=== PATIENT | male | born 1960 | race Caucasian/White ===

== ENCOUNTER 2016-03-24 15:59 | Emergency (ER) | payer OTHER, MEDICARE ==
[2016-03-24] MEDS ORDERED: Zofran 4 MG/2 ML VIAL IV ONE (16:49)
[2016-03-24] MEDS ORDERED: Sodium Chloride 0.9% 1000 ML 1,000 ML IV STA (16:49)
[2016-03-24] MEDS ORDERED: Zofran 4 MG/2 ML VIAL ONE (17:08)
[2016-03-24] MEDS ORDERED: Sodium Chloride 0.9% 1000 ML 1,000 ML ONE (17:08)
[2016-03-24 17:18] LABS: Mean Cell Volume 62.8 fl (78-100); Mean Platelet Volume 9.9 fl (6-9.5); Platelet Count 247 K/mm3 (150-450); Red Blood Count 4.79 M/mm3 (4.1-5.6); Red Cell Distribution Width 20.1 % (11.5-14.0); White Blood Count 7.1 K/mm3 (4.0-10.5)
[2016-03-24 17:35] LABS: Mean Corpuscular Hemoglobin 18.1 pg (26-32)
[2016-03-24] MEDS ORDERED: DILAUDID 2 MG INJECTION IV STA (17:42)
--- NOTE | 2016-03-24 17:42 | ERPHSYRPT ---
- History of Present Illness Time Seen by Provider: 03/24/16 16:10 Historian: patient Exam Limitations: clinical condition Patient Subjective Stated Complaint: ABD PAIN "IT FEELS LIKE SOMETHING BURST INSIDE. PAIN IS WORSE UNDER RIBS ON RIGHT SIDE." Triage Nursing Assessment: ALERT X3, NO SOB NOTED/RESP EVEN AND UNLABORED, SKIN PINK WARM DRY, ABD TENDER TO TOUCH THROUGHOUT. BOWEL SOUNDS IN ALL FOUR QUADS HYPERACTIVE. Physician History: PATIENT WITH A HISTORY OF GASTRIC REDUCTION SURGERY COMPLAINS OF GENERALIZED ABDOMINAL PAINS OVER THE PAST 6 HOURS, ASSOCIATED WITH DIARRHEA X 2. DENIES EMESIS, COUGH, FEVER, DIFFICULTY BREATHING OR URINARY SYMPTOMS. STATES HE HAS NOT HAD HIS PROTONIX TODAY. Timing/Duration: today Activities at Onset: none Quality: sharpness Abdominal Pain Onset Location: generalized abdomen Pain Radiation: no radiation Severity of Pain-Max: severe Severity of Pain-Current: severe Modifying Factors: Improves With: movement Associated Symptoms: diarrhea, nausea Previous symptoms: no prior history Allergies/Adverse Reactions: No Known Drug Allergies Allergy (Unverified 03/24/16 17:25) Home Medications: Levothyroxine Sodium 50 Mcg [Synthroid 50 Mcg] 200 mcg PO DAILY 07/28/11 [ History] Iron 325 mg PO DAILY 03/21/12 [History] Lisinopril 20 mg PO DAILY 03/27/12 [History] Viibryd 1 tab PO DAILY 03/27/12 [History] Hx Tetanus, Diphtheria Vaccination/Date Given: Yes Hx Influenza Vaccination/Date Given: Yes Hx Pneumococcal Vaccination/Date Given: No Immunizations Up to Date: Yes - Review of Systems Constitutional: No Fever, No Chills Eyes: No Symptoms Ears, Nose, & Throat: No Symptoms Respiratory: No Symptoms, No Cough, No Dyspnea Cardiac: No Chest Pain, No Edema, No Syncope Abdominal/Gastrointestinal: Abdominal Pain, Nausea, Diarrhea, No Vomiting Genitourinary Symptoms: No Symptoms, No Dysuria Musculoskeletal: No Symptoms, No Back Pain, No Neck Pain Skin: No Symptoms, No Rash Neurological: No Dizziness, No Focal Weakness, No Sensory Changes Psychological: No Symptoms Endocrine: No Symptoms All Other Systems: Reviewed and Negative - Past Medical History Pertinent Past Medical History: Yes Neurological History: No Pertinent History Cardiac History: Coronary Artery Disease Endocrine Medical History: Hypothyroidism Musculoskeletal History: Degenerative Disk Disease GI Medical History: GERD Other Medical History: CHRONIC BACK PAIN - Past Surgical History Past Surgical History: Yes Neuro Surgical History: No Pertinent History Cardiac: CABG Respiratory: No Pertinent History Gastrointestinal: Cholecystectomy Genitourinary: No Pertinent History Musculoskeletal: Orthopedic Surgery Male Surgical History: No Pertinent History Other Surgical History: SPINAL SURGERY 2016 - Social History Smoking Status: Never smoker Exposure to second hand smoke: No Alcohol Use: None Drug Use: none Patient Lives Alone: No Significant Family History: heart disease, other - Nursing Vital Signs Nursing Vital Signs: Initial Vital Signs Temperature 97.8 F Temperature Source Oral Pulse Rate 93 Respiratory Rate 18 Blood Pressure [] 159/101 Pain Intensity 8 - Physical Exam General Appearance: mild distress Eye Exam: PERRL/EOMI, eyes nml inspection Ears, Nose, Throat Exam: normal ENT inspection, pharynx normal, moist mucous membranes Neck Exam: normal inspection, non-tender, supple, full range of motion Respiratory Exam: normal breath sounds, lungs clear, No respiratory distress Cardiovascular Exam: regular rate/rhythm, normal heart sounds Gastrointestinal/Abdomen Exam: soft, normal bowel sounds, tenderness (DIFFUSE TENDERNESS, ), No mass Back Exam: normal inspection, normal range of motion, No CVA tenderness, No vertebral tenderness Extremity Exam: normal inspection, normal range of motion, pelvis stable Neurologic Exam: alert, oriented x 3, cooperative, normal mood/affect, nml cerebellar function, sensation nml, No motor deficits Skin Exam: normal color, warm, dry SpO2 Interpretation: normal SpO2: 100 Oxygen Delivery: Room Air - CT Exams Abdomen/Pelvis CT Interpretation: Tele-radiologist Report (PREVIOUS CHOLECYSTECTOMY, NO FREE AIR, MUCOSAL WALL THICKENING, NO FINDINDG TO SUGGEST APPENDICITIS) Ordered Tests: Active Orders 24 hr Category Date Time Status IV Insertion STAT Care 03/24/16 16:49 Active Oxygen-ED Only NASAL CANNULA 2 lpm Care 03/24/16 17:43 Active ABDOMEN AND PELVIS W CONTRAST [CT] Stat Exams 03/24/16 16:50 Taken AMYLASE Stat Lab 03/24/16 17:05 Completed BLOOD CULTURE Stat Lab 03/24/16 17:05 Received CBC W DIFF Stat Lab 03/24/16 17:05 Completed CMP Stat Lab 03/24/16 17:05 Completed LIPASE Stat Lab 03/24/16 18:25 Completed Manual Differential NC Stat Lab 03/24/16 17:05 Completed UA W/ MICROSCOPIC Stat Lab 03/24/16 18:00 Completed Urine Triage Profile Stat Lab 03/24/16 17:30 Completed Medication Summary Discontinued Medications Generic Name Dose Route Start Last Admin Trade Name Kassie PRN Reason Stop Dose Admin Hydromorphone HCl 2 mg 03/24/16 17:42 03/24/16 17:48 Dilaudid 2 Mg Injection IV 03/24/16 17:43 2 mg STAT STA Administration Hydromorphone HCl Confirm 03/24/16 17:45 Hydromorphone 1 Mg/Ml Ampule Administered 03/24/16 17:46 Dose 2 mg .ROUTE .STK-MED ONE Sodium Chloride 1,000 mls @ 999 mls/hr 03/24/16 16:49 03/24/16 17:11 Sodium Chloride 0.9% 1000 Ml IV 03/24/16 17:49 999 mls/hr .Q1H1M STA Administration Sodium Chloride Confirm 03/24/16 17:08 Sodium Chloride 0.9% 1000 Ml Administered 03/24/16 17:09 Dose 1,000 mls @ ud .ROUTE .STK-MED ONE Ondansetron HCl 4 mg 03/24/16 16:49 03/24/16 17:11 Zofran 4 Mg/2 Ml Vial IV 03/24/16 16:50 4 mg STAT ONE Administration Ondansetron HCl Confirm 03/24/16 17:08 Zofran 4 Mg/2 Ml Vial Administered 03/24/16 17:09 Dose 4 mg .ROUTE .STK-MED ONE Pantoprazole Sodium 40 mg 03/24/16 19:05 03/24/16 19:10 Protonix 40 Mg Iv IV 03/24/16 19:06 40 mg STAT ONE Administration Pantoprazole Sodium Confirm 03/24/16 19:07 Protonix 40 Mg Iv Administered 03/24/16 19:08 Dose 40 mg IV .STK-MED ONE Pantoprazole Sodium 40 mg 03/24/16 19:32 Protonix 40mg Tablet PO 03/24/16 19:33 STAT ONE Lab/Rad Data: Laboratory Result Diagrams 03/24/16 17:05 03/24/16 17:05 Laboratory Results 03/24/16 03/24/16 03/24/16 Range/Units 18:25 18:00 17:30 WBC (4.0-10.5) K/mm3 RBC (4.1-5.6) M/mm3 Hgb (12.5-18.0) gm/dl Hct (42-50) % MCV (78-100) fl MCH (26-32) pg MCHC (32-36) g/dl RDW (11.5-14.0) % Plt Count (150-450) K/mm3 MPV (6-9.5) fl Segmented Neutrophils (36.-66.) % Lymphocytes (Manual) (24-44) % Monocytes (Manual) (0.0-12.0) % Differential Comment Platelet Estimate (NORMAL) Hypochromasia Poikilocytosis Anisocytosis Sodium (136-145) mEq/L Potassium (3.5-5.1) mEq/L Chloride (98-107) mEq/L Carbon Dioxide (21-32) mEq/L Anion Gap (5-15) MEQ/L BUN (9-20) mg/dL Creatinine (0.55-1.30) mg/dl Estimated GFR ML/MIN Glucose (70-110) MG/DL Calcium (8.5-10.1) mg/dL Total Bilirubin (0.2-1.0) mg/dL AST (15-37) U/L ALT (12-78) U/L Alkaline Phosphatase (46-116) U/L Serum Total Protein (6.4-8.2) gm/dL Albumin (3.4-5.0) g/dL Amylase (25-115) U/L Lipase 198 (73-393) U/L Ur Collection Type CCMS Urine Color YELLOW (YELLOW) Urine Appearance CLEAR (CLEAR) Urine pH 6.5 (5-6) Ur Specific [place] 1.025 (1.005-1.025) Urine Protein 30 (Negative) Urine Glucose (UA) NEGATIVE (NEGATIVE) mg/dL Urine Ketones SMALL-15 (NEGATIVE) Urine Nitrite NEGATIVE (NEGATIVE) Urine Bilirubin NEGATIVE (NEGATIVE) Urine Urobilinogen 0.2 (0-1) mg/dL Urine WBC (Auto) NEGATIVE (NEGATIVE) Urine RBC (Auto) NEGATIVE (0-5) Jose/ul Urine Microscopic RBC 0-2 (0-2) /HPF Urine Microscopic WBC 0-2 (0-5) /HPF Urine Mucus SLIGHT (NEGATIVE) /HPF Urine Opiates Level NEG. (NEGATIVE) Ur Methadone NEG. (NEGATIVE) Urine Barbiturates NEG. (NEGATIVE) Ur Phencyclidine (PCP) NEG. (NEGATIVE) Urine Amphetamine NEG. (NEGATIVE) U Benzodiazepine Level POS. (NEGATIVE) Urine Cocaine NEG. (NEGATIVE) Urine Marijuana (THC) NEG. (NEGATIVE) Specimen Received 03-24-16 1800 03/24/16 03/24/16 Range/Units 17:05 17:05 WBC 7.1 (4.0-10.5) K/mm3 RBC 4.79 (4.1-5.6) M/mm3 Hgb 8.7 L (12.5-18.0) gm/dl Hct 30.1 L (42-50) % MCV 62.8 L (78-100) fl MCH 18.1 L (26-32) pg MCHC 28.9 L (32-36) g/dl RDW 20.1 H (11.5-14.0) % Plt Count 247 (150-450) K/mm3 MPV 9.9 H (6-9.5) fl Segmented Neutrophils 67 H (36.-66.) % Lymphocytes (Manual) 25 (24-44) % Monocytes (Manual) 8 (0.0-12.0) % Differential Comment ABNORMAL Platelet Estimate NORMAL (NORMAL) Hypochromasia 2+ Poikilocytosis 1+ Anisocytosis 1+ Sodium 140 (136-145) mEq/L Potassium 3.5 (3.5-5.1) mEq/L Chloride 104 (98-107) mEq/L Carbon Dioxide 18.2 L (21-32) mEq/L Anion Gap 21.1 H (5-15) MEQ/L BUN 17 (9-20) mg/dL Creatinine 1.09 (0.55-1.30) mg/dl Estimated GFR > 60 ML/MIN Glucose 107 (70-110) MG/DL Calcium 9.3 (8.5-10.1) mg/dL Total Bilirubin 0.6 (0.2-1.0) mg/dL AST 20 (15-37) U/L ALT 17 (12-78) U/L Alkaline Phosphatase 112 (46-116) U/L Serum Total Protein 7.7 (6.4-8.2) gm/dL Albumin 4.4 (3.4-5.0) g/dL Amylase 73 (25-115) U/L Lipase (73-393) U/L Ur Collection Type Urine Color (YELLOW) Urine Appearance (CLEAR) Urine pH (5-6) Ur Specific [place] (1.005-1.025) Urine Protein (Negative) Urine Glucose (UA) (NEGATIVE) mg/dL Urine Ketones (NEGATIVE) Urine Nitrite (NEGATIVE) Urine Bilirubin (NEGATIVE) Urine Urobilinogen (0-1) mg/dL Urine WBC (Auto) (NEGATIVE) Urine RBC (Auto) (0-5) Jose/ul Urine Microscopic RBC (0-2) /HPF Urine Microscopic WBC (0-5) /HPF Urine Mucus (NEGATIVE) /HPF Urine Opiates Level (NEGATIVE) Ur Methadone (NEGATIVE) Urine Barbiturates (NEGATIVE) Ur Phencyclidine (PCP) (NEGATIVE) Urine Amphetamine (NEGATIVE) U Benzodiazepine Level (NEGATIVE) Urine Cocaine (NEGATIVE) Urine Marijuana (THC) (NEGATIVE) Specimen Received - Progress Progress: improved Progress Note: 03/24/16 19:24 PATIENT GIVEN BOLUS NORMAL SALINE, ZOFRAN 4MG, DILAUDID 2MG, PROTONIX 40MG IV Counseled pt/family regarding: lab results, diagnosis, need for follow-up, rad results - Departure Time of Disposition: 17:30 Departure Disposition: Home Clinical Impression: ACUTE GASTRITIS Condition: Stable Critical Care Time: No Referrals: Miguel Angel Banks [Primary Care Provider] - Additional Instructions: BEGIN PROTONIX 40 MG DAILY AFTER PRESCRIPTION FILLED BY SPOUSE. FOLLOWUP WITH YOUR FAMILY PHYSICIAN IN 1 WEEK. ULTRAM 50MG EVERY 4 HOURS FOR PAIN NEEDED.
[2016-03-24] MEDS ORDERED: Hydromorphone 1 mg/ml Ampule ONE (17:45)
[2016-03-24 17:49] LABS: ALBUMIN 4.4 g/dL (3.4-5.0); ALKALINE PHOSPHATASE 112 U/L (46-116); ANION GAP 21.1 MEQ/L (5-15); BILIRUBIN,TOTAL 0.6 mg/dL (0.2-1.0); BLOOD UREA NITROGEN 17 mg/dL (9-20); CHLORIDE 104 mEq/L (98-107); Carbon Dioxide 18.2 mEq/L (21-32); Glucose 107 MG/DL (70-110); Potassium 3.5 mEq/L (3.5-5.1); SGOT/AST 20 U/L (15-37); SGPT/ALT 17 U/L (12-78); SODIUM 140 mEq/L (136-145); Total Protein 7.7 gm/dL (6.4-8.2)
[2016-03-24 18:14] LABS: COMPLETE URINE MICROSCOPIC? YES; Collection Type CCMS; Mucus SLIGHT /HPF (NEGATIVE); Ph 6.5 (5-6); WBC 0-2 /HPF (0-5)
[2016-03-24 18:54] LABS: Total Cells Counted 100
[2016-03-24 18:55] LABS: ANISOCYTOSIS 1+; Hypochromia 2+; Platelet Estimate NORMAL (NORMAL); Poikilocytosis 1+
[2016-03-24] MEDS ORDERED: PROTONIX 40 MG IV IV ONE ×2 (19:05→19:07)
[2016-03-24] MEDS ORDERED: Protonix 40MG Tablet PO ONE (19:32)
[2016-03-24] MEDS ORDERED: Protonix 40MG Tablet ONE (19:35)
[2016-03-24 19:42] VITALS: BP 170/104; PULSE 90; O2SAT 99
[2016-03-24 19:58] LABS: CHLAMYDIA URINE NEGATIVE; GC URINE NEGATIVE
--- NOTE | 2016-03-25 09:06 | XRAY ---
Indication: Abdominal pain. Multiple contiguous axial images obtained through the abdomen and pelvis using 80 cc Isovue 370 contrast only. Comparison: None Lung bases are clear. Heart is not enlarged. Small hiatal hernia. There has been previous gastric bypass surgery. Noncontrasted stomach and bowel loops appear nonobstructed. Appendix not seen. No free fluid/air. Previous cholecystectomy. Enlarged prostate gland impresses on the base of the bladder. Remaining liver, pancreas, spleen, adrenal glands, kidneys, ureters, and bladder appear unremarkable. Mild aortoiliac calcifications. No AAA or pathologic retroperitoneal lymphadenopathy. Osseous structures demonstrate previous L4-S1 fusion surgery and laminectomy. Approximately 6-7 mm L5 anterolisthesis on S1. Small bilateral fatty inguinal hernias. Impression: 1. No acute intra-abdominal/pelvic abnormalities. 2. Incidental small hiatal hernia, small bilateral fatty inguinal hernias, enlarged prostate gland, and previous spinal surgery. Comment: Preliminary interpretation was made by [facility]. No discrepancy. CT DI 23.19
== END 2016-03-24 19:50 | disposition home or self-care (01) ==
LOC: EEVIPCON 15:59 → ED 15:59
DX: K29.00 Acute gastritis without bleeding (principal); R19.7 Diarrhea, unspecified; R11.0 Nausea; R10.9 Unspecified abdominal pain
CPT/HCPCS: 36000; 36415; 74177; 80053; 80307; 81000; 82150; 83690; 85025; 87040; 87491; 87591; 96360; 96374; 96375; 99283; J1170; J2405

== ENCOUNTER 2016-03-29 10:08 | Emergency (ER) | payer MEDICARE ==
[2016-03-29] MEDS ORDERED: DECADRON 10MG INJ. IM ONE (10:29)
[2016-03-29] MEDS ORDERED: DUONEB 0.5-3 MG/3 ml Neb IH ONE ×2 (10:30→10:42)
[2016-03-29] MEDS ORDERED: TYLENOL 325 MG PO ONE (10:30)
--- NOTE | 2016-03-29 10:34 | ERPHSYRPT ---
- History of Present Illness Time Seen by Provider: 03/29/16 10:24 Source: patient Patient Subjective Stated Complaint: PT REPORTS PERSISTANT COUGH-BODY ACHES- UNKNOWN FEVER-STATES HE IS MISERABLE Triage Nursing Assessment: COUGH NOTED-LUNGS TIGHT WITH OCCASIONAL WHEEZE-NO RETRACTION SNOTED-PT SPEAKING IN COMPLETE SENTENCES WITH EASE-COUGH Physician History: CC: cough Hx: 55 y/o male patient of [employer] Ranjan with hx of CAD and HTN. He has been ill for several days with dry cough, mylagias, weakness, sore throat, headache. He vomited this AM. He was in ER Tuesday and was given keflex for his throat. No hx of asthma but has bronchitis in the past. He is on keflex Rx. He took APAP early this AM. He has body aches. Timing/Duration: day(s) (few) Allergies/Adverse Reactions: No Known Drug Allergies Allergy (Verified 03/29/16 10:21) Home Medications: Levothyroxine Sodium 50 Mcg [Synthroid 50 Mcg] 200 mcg PO DAILY 07/28/11 [ History] Lisinopril 20 mg [Zestril 20 MG] 20 mg PO DAILY 03/29/16 [History] Naproxen 500 mg [Naprosyn 500 MG] 500 mg PO BIDPRN PRN 03/29/16 [History] Vilazodone Hydrochloride [Viibryd] 1 each PO DAILY 03/29/16 [History] Hx Tetanus, Diphtheria Vaccination/Date Given: No Hx Influenza Vaccination/Date Given: Yes Hx Pneumococcal Vaccination/Date Given: No Immunizations Up to Date: Yes - Review of Systems Constitutional: Fever, Chills, Malaise, Weakness Eyes: No Symptoms Ears, Nose, & Throat: Nose Congestion, Throat Pain Respiratory: Cough, No Dyspnea Cardiac: No Chest Pain Abdominal/Gastrointestinal: Vomiting, No Abdominal Pain Musculoskeletal: No Neck Pain Skin: No Rash Neurological: Headache All Other Systems: Reviewed and Negative - Past Medical History Pertinent Past Medical History: Yes Neurological History: No Pertinent History Cardiac History: Coronary Artery Disease Endocrine Medical History: Hypothyroidism Musculoskeletal History: Degenerative Disk Disease GI Medical History: GERD Other Medical History: CHRONIC BACK PAIN - Past Surgical History Past Surgical History: Yes Neuro Surgical History: No Pertinent History Cardiac: CABG Respiratory: No Pertinent History Gastrointestinal: Cholecystectomy Genitourinary: No Pertinent History Musculoskeletal: Orthopedic Surgery Male Surgical History: No Pertinent History Other Surgical History: SPINAL SURGERY 2016 - Social History Smoking Status: Never smoker Exposure to second hand smoke: No Alcohol Use: None Drug Use: none Patient Lives Alone: No Significant Family History: heart disease, other - Nursing Vital Signs Nursing Vital Signs: Initial Vital Signs Temperature 98.1 F Temperature Source Oral Pulse Rate 74 Respiratory Rate 22 Blood Pressure [Right Arm] 151/98 Pain Intensity 8 - Physical Exam General Appearance: alert Eye Exam: PERRL/EOMI Ears, Nose, Throat Exam: moist mucous membranes Neck Exam: normal inspection, non-tender, supple Respiratory Exam: rhonchi, wheezing (scattered with cough) Cardiovascular Exam: regular rate/rhythm, No murmur Gastrointestinal/Abdomen Exam: soft, No tenderness, No distention Back Exam: normal inspection Extremity Exam: normal inspection, normal range of motion Neurologic Exam: alert, oriented x 3, cooperative, sensation nml, No motor deficits Skin Exam: warm, dry, No rash SpO2 Interpretation: normal SpO2: 99 Oxygen Delivery: Room Air - Course Nursing assessment & vital signs reviewed: Yes - Radiology Exams cxr X-ray Interpretation: Reviewed by me, Negative Ordered Tests: Active Orders 24 hr Category Date Time Status Clean Catch Urine Specimen STAT Care 03/29/16 10:30 Active Pulse Oximetry (ED) STAT Care 03/29/16 10:28 Active CHEST 2 VIEWS (PA AND LAT) Stat Exams 03/29/16 10:29 Completed UA W/ MICROSCOPIC Stat Lab 03/29/16 11:18 Completed Respiratory Nebulizer STAT RT 03/29/16 10:30 Completed Medication Summary Discontinued Medications Generic Name Dose Route Start Last Admin Trade Name Kassie PRN Reason Stop Dose Admin Acetaminophen 650 mg 03/29/16 10:30 03/29/16 10:38 Tylenol 325 Mg PO 03/29/16 10:31 650 mg STAT ONE Administration Acetaminophen Confirm 03/29/16 10:36 Tylenol 325 Mg Administered 03/29/16 10:37 Dose 650 mg .ROUTE .STK-MED ONE Albuterol/Ipratropium 3 ml 03/29/16 10:30 03/29/16 10:45 Duoneb 0.5-3 Mg/3 Ml Neb IH 03/29/16 10:31 3 ml STAT ONE Administration Albuterol/Ipratropium Confirm 03/29/16 10:42 Duoneb 0.5-3 Mg/3 Ml Neb Administered 03/29/16 10:43 Dose 3 ml IH .STK-MED ONE Dexamethasone Sodium Phosphate 10 mg 03/29/16 10:29 03/29/16 10:38 Decadron 10mg Inj. IM 03/29/16 10:30 10 mg STAT ONE Administration Dexamethasone Sodium Phosphate Confirm 03/29/16 10:36 Decadron 10mg Inj. Administered 03/29/16 10:37 Dose 10 mg .ROUTE .STK-MED ONE Lab/Rad Data: Laboratory Results 03/29/16 03/29/16 Range/Units 11:18 10:37 Ur Collection Type CLEAN CATCH Urine Color YELLOW (YELLOW) Urine Appearance CLEAR (CLEAR) Urine pH 5.5 (5-6) Ur Specific [place] >=1.030 (1.005-1.025) Urine Protein 30 (Negative) Urine Glucose (UA) NEGATIVE (NEGATIVE) mg/dL Urine Ketones NEGATIVE (NEGATIVE) Urine Nitrite NEGATIVE (NEGATIVE) Urine Bilirubin NEGATIVE (NEGATIVE) Urine Urobilinogen 0.2 (0-1) mg/dL Urine WBC (Auto) NEGATIVE (NEGATIVE) Urine RBC (Auto) NEGATIVE (0-5) Jose/ul Ur Epithelial Cells RARE (FEW) /HPF Hyaline Casts 0-2 (0-2) /LPF Resp Infection Panel NEGATIVE (Negative) Specimen Received 03/29/16 1115 - Progress Progress Note: 03/29/16 11:47 IM decadron given. Will release with zofran and albuterol. Flu instr given. Counseled pt/family regarding: lab results, diagnosis, need for follow-up, rad results - Departure Time of Disposition: 11:47 Departure Disposition: Home Clinical Impression: Influenza A Condition: Stable Critical Care Time: No Referrals: ROJAS BAILEY [Primary Care Provider] - Instructions: Cough -- Adult, Influenza -- Adult Additional Instructions: VIRAL ILLNESS 1. Rest at home and take any prescribed medications as directed or until gone. 2. Offer plenty of fluids as tolerated. 3. Acetaminophen or Ibuprofen as directed. 4. Be sure to follow up with your family physician or return to the emergency department if symptoms change or become worse. Push oral fluids. Rx albuterol MDI. Rx zofran for nausea. Prescriptions: Ondansetron [Zofran Odt] 4 mg PO Q6HPRN PRN #10 tab.rapdis PRN Reason: Nausea/Vomiting Albuterol Sulfate [Albuterol Sulfate Hfa] 2 puff IH Q4-6HPRN PRN #1 [id number] PRN Reason: cough or wheeze
[2016-03-29] MEDS ORDERED: TYLENOL 325 MG ONE (10:36)
[2016-03-29] MEDS ORDERED: DECADRON 10MG INJ. ONE (10:36)
--- NOTE | 2016-03-29 11:13 | XRAY ---
Indication: Cough and flulike symptoms. Comparison: January 05, 2006 PA/lateral chest remains clear. Heart and mediastinal structures within normal limits again demonstrating previous CABG surgery. Bony thorax intact. Impression: Stable nonacute chest.
[2016-03-29 11:28] LABS: Collection Type CLEAN CATCH
[2016-03-29 11:29] LABS: COMPLETE URINE MICROSCOPIC? YES; Ph 5.5 (5-6)
[2016-03-29 11:41] LABS: Epithelial Cells RARE /HPF (FEW); Hyaline Casts 0-2 /LPF (0-2)
[2016-03-29 11:54] VITALS: BP 132/88; PULSE 71; O2SAT 97
== END 2016-03-29 11:53 | disposition home or self-care (01) ==
LOC: ED 10:08
DX: J11.1 Influenza due to unidentified influenza virus with other respiratory manifestations (principal)
CPT/HCPCS: 71020; 81000; 87631; 94640; 96372; 99283; J1100

== ENCOUNTER 2016-04-26 05:50 | Day surgery (SDC) | payer MEDICARE ==
[2016-04-26] MEDS ORDERED: Pepcid 20 MG VIAL IV ONE ×2 (06:28→06:31)
[2016-04-26] MEDS ORDERED: Lactated Ringers 1,000 ML IV SCH (06:30)
[2016-04-26] MEDS ORDERED: DIPRIVAN 200 MG/20 ML IV ONE (08:00)
[2016-04-26] MEDS ORDERED: Ketamine HCl 50 MG/ML IJ ONE (08:00)
[2016-04-26 08:20] VITALS: O2SAT 99
[2016-04-26 08:36] VITALS: BP 158/92; PULSE 74
--- NOTE | 2016-04-26 10:59 | OP ---
SURGERY DATE: 04/26/16 SURGERY TIME: 721 PREOPERATIVE DIAGNOSIS: 1. ABDOMINAL PAIN. 2. ANEMIA. POSTOPERATIVE DIAGNOSIS: 1. NORMAL STOMACH STATUS POST PARTIAL GASTRECTOMY. 2. NORMAL COLON. PROCEDURE: 1. Esophagogastroduodenoscopy. 2. Colonoscopy. SURGEON: Dr. Altamirano. ANESTHESIA: MAC, medications given by the Anesthesia Department. BRIEF HISTORY: The patient is a 55 y/o WM patient who reports epigastric pain. He reports he has also been anemic having had an Hgb of 8.1. He also reports remote bariatric surgery where he had a new stomach made. He also reports he had endoscopic evaluation 3 years ago which he thought polyps may have been removed. The patient was felt to need reevaluation. He was appraised of the risks of the procedure including the risk of perforation, phlebitis, untoward reaction to medication, bleeding, and missed lesions. The patient verbalized his understanding and desired to have the procedure performed. DESCRIPTION OF PROCEDURE: The patient was given the medications by the Anesthesia Department. He had continuous pulse oximetry, ECG monitoring, intermittent BP monitoring, and end tidal CO2 monitoring during the examination. He was placed in the left lateral decubitus position. A bite block was placed and the flexible Olympus gastroscope was used to intubate the oropharynx. A view of the larynx was obtained and was normal. The scope was easily introduced in the esophagus which was normal throughout its length. The stomach was entered where normal gastric rugal folds were not seen due to the partial gastrectomy. There appeared to be a double loop with one end being somewhat blind and the other one consistent with normal small bowel mucosa. The scope was then carefully withdrawn. Next, a digital rectal examination was performed and revealed normal anal sphincter tone and no masses. The flexible Olympus pediatric colonoscope was used to intubate the rectum. A view of the colon was developed sequentially to the cecum. Upon insertion and withdrawal, including a retroflex view in the rectum, no mucosal lesions were encountered. The scope was removed from the patient who tolerated the procedure well and was sent back to OP recovery in good condition. The prep was noted to be fair.
== END 2016-04-26 08:52 | disposition home or self-care (01) ==
LOC: SDC 05:50
PROVIDERS: ATTEND Family Medicine
PROC: 0DJ08ZZ Inspection of Upper Intestinal Tract, Via Natural or Artificial Opening Endoscopic (ICD-10-PCS; principal; 2016-04-26)
PROC: 0DJD8ZZ Inspection of Lower Intestinal Tract, Via Natural or Artificial Opening Endoscopic (ICD-10-PCS; 2016-04-26)
DX: R10.9 Unspecified abdominal pain (principal); D64.9 Anemia, unspecified; Z90.3 Acquired absence of stomach [part of]
CPT/HCPCS: 00740; 00810; J2704

== ENCOUNTER 2016-04-28 08:15 | Emergency (ER) | payer MEDICARE ==
[2016-04-28] MEDS ORDERED: Pepcid 20 MG VIAL IV ONE ×2 (08:38→08:41)
[2016-04-28] MEDS ORDERED: Hydromorphone 1 mg/ml Ampule IV ONE ×2 (08:38→11:26)
[2016-04-28] MEDS ORDERED: BENADRYL 50 MG/ML IV ONE ×2 (08:38→11:26)
[2016-04-28] MEDS ORDERED: BENADRYL 50 MG/ML ONE ×2 (08:41→11:32)
[2016-04-28] MEDS ORDERED: Sodium Chloride 0.9% 1000 ML 1,000 ML ONE (08:42)
[2016-04-28] MEDS ORDERED: Hydromorphone 1 mg/ml Ampule ONE ×2 (08:42→11:32)
[2016-04-28] MEDS ORDERED: Sodium Chloride 0.9% 1000 ML 1,000 ML IV SCH (08:45)
[2016-04-28 08:53] LABS: Collection Type VOID
[2016-04-28 08:54] LABS: COMPLETE URINE MICROSCOPIC? NO
[2016-04-28 08:54] LABS: Mean Cell Volume 68.4 fl (78-100); Mean Corpuscular Hemoglobin 19.9 pg (26-32); Mean Platelet Volume 10.3 fl (6-9.5); Platelet Count 279 K/mm3 (150-450); Red Blood Count 4.62 M/mm3 (4.1-5.6); Red Cell Distribution Width 24.5 % (11.5-14.0)
--- NOTE | 2016-04-28 08:54 | ERPHSYRPT ---
- History of Present Illness Time Seen by Provider: 04/28/16 08:23 Historian: patient Patient Subjective Stated Complaint: PT REPORTS HAVING COLONOSCOPY ON TUESDAY- REPORTS ALL OVER ABD PAIN-PRESSURE WORSENING WITH TIME-STATES PAIN IS NOW RADIATING DOWN BILATERAL LEGS-NASUEA WITH NO VOMITING Triage Nursing Assessment: ABD TENDER TO PALP-BOWEL SOUNDS HYPOACTIVE-PT GUARDING-RESP NONLABORED AT THIS TIME-PT REPORTS BOWELS HAVE MOVED SINCE SCOPE WITH NO OBVIOUS BLOOD Physician History: CC: abd pain Hx: 55 y/o male with abd pain, cramping including leg cramps. He had normal EGD and colonoscopy [address] schmidt. He has recent heme positive stools and iron def anemia. He has prior bariatric surgery, cholecystectomy, CABG, and spine surgery. He sees SENIOR [employer]IS DEVELOPER Ariel. He has increasing abd pain since the time of his surgery. Pain is moderately severe. No fever or chills. No vomiting. Normal stools. Normal urination. Pain is sharp and aching. Timing/Duration: day(s) (2) Quality: aching, cramping, sharpness Allergies/Adverse Reactions: No Known Drug Allergies Allergy (Verified 04/28/16 08:24) Home Medications: Levothyroxine Sodium 50 Mcg [Synthroid 50 Mcg] 200 mcg PO DAILY 07/28/11 [ History] Lisinopril 20 mg [Zestril 20 MG] 20 mg PO DAILY 03/29/16 [History] Aspirin 81 mg PO DAILY 04/23/16 [History] PANTOPRAZOLE 40 mg Tablet [Protonix 40MG Tablet] 40 mg PO QAM 04/23/16 [ History] Hx Tetanus, Diphtheria Vaccination/Date Given: No Hx Influenza Vaccination/Date Given: Yes Hx Pneumococcal Vaccination/Date Given: No Immunizations Up to Date: Yes - Review of Systems Constitutional: Malaise, No Fever, No Chills Eyes: No Symptoms Ears, Nose, & Throat: No Symptoms Respiratory: No Cough, No Dyspnea Cardiac: No Chest Pain Abdominal/Gastrointestinal: Abdominal Pain, No Nausea, No Vomiting, No Diarrhea Genitourinary Symptoms: No Dysuria, No Hematuria Skin: No Rash Neurological: No Headache All Other Systems: Reviewed and Negative - Past Medical History Pertinent Past Medical History: Yes Neurological History: No Pertinent History ENT History: No Pertinent History Cardiac History: Congestive Heart Failure, Coronary Artery Disease, Hypertension Respiratory History: No Pertinent History Endocrine Medical History: Hypothyroidism Musculoskeletal History: Degenerative Disk Disease GI Medical History: GERD History: No Pertinent History Psycho-Social History: Depression Male Reproductive Disorders: No Pertinent History Other Medical History: CHRONIC BACK PAIN. CHRONIC ABDOMINAL PAIN. ANEMIA - Past Surgical History Past Surgical History: Yes Neuro Surgical History: No Pertinent History Cardiac: CABG Respiratory: No Pertinent History Gastrointestinal: Cholecystectomy Genitourinary: No Pertinent History Musculoskeletal: Orthopedic Surgery Male Surgical History: No Pertinent History Other Surgical History: SPINAL SURGERY 2016. BILATERAL KNEE SCOPES, states CABG more than 10yrs ago - Social History Smoking Status: Never smoker Exposure to second hand smoke: No Alcohol Use: None Drug Use: none Patient Lives Alone: No Significant Family History: heart disease, other - Nursing Vital Signs Nursing Vital Signs: Initial Vital Signs Temperature 97.5 F Temperature Source Oral Pulse Rate 89 Respiratory Rate 22 Blood Pressure [] 149/99 Pain Intensity 5 - Physical Exam General Appearance: alert Eye Exam: PERRL/EOMI Ears, Nose, Throat Exam: normal ENT inspection, moist mucous membranes Neck Exam: normal inspection, non-tender, supple Respiratory Exam: normal breath sounds, lungs clear Cardiovascular Exam: regular rate/rhythm Gastrointestinal/Abdomen Exam: soft, tenderness (epiagstric and luq with some guarding, no mass) Male Genitalia Exam: normal genitalia Back Exam: normal inspection Extremity Exam: normal inspection, normal range of motion Neurologic Exam: alert, oriented x 3, cooperative, sensation nml, No motor deficits Skin Exam: warm, dry, No rash SpO2 Interpretation: normal SpO2: 100 Oxygen Delivery: Room Air - Course Nursing assessment & vital signs reviewed: Yes EKG Interpreted by Me: RATE (79), Sinus Rhythm, NORMAL AXIS, NORMAL INTERVALS ( QTc 429), NORMAL QRS, Non-specific ST Changes - Radiology Exams cxr X-ray Interpretation: Discussed w/ radiologist, Negative - CT Exams abd/pelvis CT Interpretation: Negative, Tele-radiologist Report Ordered Tests: Active Orders 24 hr Category Date Time Status Clean Catch Urine Specimen STAT Care 04/28/16 08:38 Active EKG-ER Only STAT Care 04/28/16 08:38 Active IV Insertion STAT Care 04/28/16 08:38 Active NPO (ED) STAT Care 04/28/16 08:38 Active ABDOMEN AND PELVIS W CONTRAST [CT] Stat Exams 04/28/16 08:39 Completed CHEST 1 VIEW (PORTABLE) Stat Exams 04/28/16 08:38 Completed CBC W DIFF Stat Lab 04/28/16 08:30 Completed CMP Stat Lab 04/28/16 08:30 Completed LIPASE Stat Lab 04/28/16 08:30 Completed Lactic Acid Urgent Lab 04/28/16 09:06 Completed Manual Differential NC Stat Lab 04/28/16 08:30 Completed UA Stat Lab 04/28/16 08:40 Completed Medication Summary Generic Name Dose Route Start Last Admin Trade Name Freq PRN Reason Stop Dose Admin Sodium Chloride 1,000 mls @ 100 mls/hr 04/28/16 08:45 04/28/16 08:49 Sodium Chloride 0.9% 1000 Ml IV 05/28/16 08:44 100 mls/hr .Q10H VENUS Administration Discontinued Medications Generic Name Dose Route Start Last Admin Trade Name Freq PRN Reason Stop Dose Admin Diphenhydramine HCl 25 mg 04/28/16 08:38 04/28/16 08:51 Benadryl 50 Mg/Ml IV 04/28/16 08:39 25 mg STAT ONE Administration Diphenhydramine HCl Confirm 04/28/16 08:41 Benadryl 50 Mg/Ml Administered 04/28/16 08:42 Dose 50 mg .ROUTE .STK-MED ONE Diphenhydramine HCl 25 mg 04/28/16 11:26 Benadryl 50 Mg/Ml IV 04/28/16 11:27 STAT ONE Famotidine 20 mg 04/28/16 08:38 04/28/16 08:50 Pepcid 20 Mg Vial IV 04/28/16 08:39 20 mg STAT ONE Administration Famotidine Confirm 04/28/16 08:41 Pepcid 20 Mg Vial Administered 04/28/16 08:42 Dose 20 mg IV .STK-MED ONE Hydromorphone HCl 1 mg 04/28/16 08:38 04/28/16 08:52 Hydromorphone 1 Mg/Ml Ampule IV 04/28/16 08:39 1 mg STAT ONE Administration Hydromorphone HCl Confirm 04/28/16 08:42 Hydromorphone 1 Mg/Ml Ampule Administered 04/28/16 08:43 Dose 1 mg .ROUTE .STK-MED ONE Hydromorphone HCl 0.5 mg 04/28/16 11:26 Hydromorphone 1 Mg/Ml Ampule IV 04/28/16 11:27 STAT ONE Sodium Chloride Confirm 04/28/16 08:42 Sodium Chloride 0.9% 1000 Ml Administered 04/28/16 08:43 Dose 1,000 mls @ ud .ROUTE .STK-MED ONE Lab/Rad Data: Laboratory Result Diagrams 04/28/16 08:30 04/28/16 08:30 Laboratory Results 04/28/16 04/28/16 04/28/16 Range/Units 09:06 08:40 08:30 WBC (4.0-10.5) K/mm3 RBC (4.1-5.6) M/mm3 Hgb (12.5-18.0) gm/dl Hct (42-50) % MCV (78-100) fl MCH (26-32) pg MCHC (32-36) g/dl RDW (11.5-14.0) % Plt Count (150-450) K/mm3 MPV (6-9.5) fl Sodium 136 (136-145) mEq/L Potassium 4.5 (3.5-5.1) mEq/L Chloride 102 (98-107) mEq/L Carbon Dioxide 21.7 (21-32) mEq/L Anion Gap 17.1 H (5-15) MEQ/L BUN 19 (9-20) mg/dL Creatinine 0.93 (0.55-1.30) mg/dl Estimated GFR > 60 ML/MIN Glucose 98 (70-110) MG/DL Lactic Acid 1.1 (0.4-2.0) Calcium 9.5 (8.5-10.1) mg/dL Total Bilirubin 0.3 (0.2-1.0) mg/dL AST 34 (15-37) U/L ALT 53 (12-78) U/L Alkaline Phosphatase 150 H (46-116) U/L Serum Total Protein 7.3 (6.4-8.2) gm/dL Albumin 3.9 (3.4-5.0) g/dL Lipase 83 (73-393) U/L Ur Collection Type VOID Urine Color YELLOW (YELLOW) Urine Appearance CLEAR (CLEAR) Urine pH 6.0 (5-6) Ur Specific [place] 1.020 (1.005-1.025) Urine Protein NEGATIVE (Negative) Urine Glucose (UA) NEGATIVE (NEGATIVE) mg/dL Urine Ketones NEGATIVE (NEGATIVE) Urine Nitrite NEGATIVE (NEGATIVE) Urine Bilirubin NEGATIVE (NEGATIVE) Urine Urobilinogen 0.2 (0-1) mg/dL Urine WBC (Auto) NEGATIVE (NEGATIVE) Urine RBC (Auto) NEGATIVE (0-5) Jose/ul Specimen Received 04/28/16 0840 04/28/16 Range/Units 08:30 WBC 8.0 (4.0-10.5) K/mm3 RBC 4.62 (4.1-5.6) M/mm3 Hgb 9.2 L (12.5-18.0) gm/dl Hct 31.6 L (42-50) % MCV 68.4 L (78-100) fl MCH 19.9 L (26-32) pg MCHC 29.1 L (32-36) g/dl RDW 24.5 H (11.5-14.0) % Plt Count 279 (150-450) K/mm3 MPV 10.3 H (6-9.5) fl Sodium (136-145) mEq/L Potassium (3.5-5.1) mEq/L Chloride (98-107) mEq/L Carbon Dioxide (21-32) mEq/L Anion Gap (5-15) MEQ/L BUN (9-20) mg/dL Creatinine (0.55-1.30) mg/dl Estimated GFR ML/MIN Glucose (70-110) MG/DL Lactic Acid (0.4-2.0) Calcium (8.5-10.1) mg/dL Total Bilirubin (0.2-1.0) mg/dL AST (15-37) U/L ALT (12-78) U/L Alkaline Phosphatase (46-116) U/L Serum Total Protein (6.4-8.2) gm/dL Albumin (3.4-5.0) g/dL Lipase (73-393) U/L Ur Collection Type Urine Color (YELLOW) Urine Appearance (CLEAR) Urine pH (5-6) Ur Specific [place] (1.005-1.025) Urine Protein (Negative) Urine Glucose (UA) (NEGATIVE) mg/dL Urine Ketones (NEGATIVE) Urine Nitrite (NEGATIVE) Urine Bilirubin (NEGATIVE) Urine Urobilinogen (0-1) mg/dL Urine WBC (Auto) (NEGATIVE) Urine RBC (Auto) (0-5) Jose/ul Specimen Received - Progress Progress Note: 04/28/16 08:53 Will get to assess for perforation. 04/28/16 11:34 The patient is stable. Still has some pain. Labs and CT reassuring. Appt made for SENIOR [employer] DEVELOPER Ariel tomorrow at 10AM. Will release with abd pain instr. He reports normal BM's. Counseled pt/family regarding: lab results, diagnosis, need for follow-up, rad results - Departure Time of Disposition: 11:35 Departure Disposition: Home Clinical Impression: Abdominal pain Qualifiers: Abdominal location: upper abdomen, unspecified Qualified Code(s): R10.10 - Upper abdominal pain, unspecified Anemia Qualifiers: Anemia type: iron deficiency Iron deficiency anemia type: other iron deficiency Qualified Code(s): D50.8 - Other iron deficiency anemias Condition: Stable Critical Care Time: No Referrals: ROJAS GEORGE [Primary Care Provider] - Instructions: Abdominal Pain-Adult Additional Instructions: ABDOMINAL PAIN 1. There are several different causes for abdominal pain, some of which may not be able to be identified on initial examination. 2. The important thing to remember is that bodily functions can change in a short period of time. If you notice any of the following symptoms, return to the emergency department or consult your doctor immediately: A. Worsening pain or no improvement in the next 12 hours. B. Increasing, severe abdominal pain C. Blood in stool D. Black stools E. Persistent vomiting F. Fever or chills or other symptoms No driving. Rx hydroxyzine. See ANITA George tomorrow at 10AM. Continue your medications. Prescriptions: Hydroxyzine HCl 1 tab PO Q6H PRN PRN #20 tablet PRN Reason: rash,rest
[2016-04-28 09:22] LABS: ALBUMIN 3.9 g/dL (3.4-5.0); ALKALINE PHOSPHATASE 150 U/L (46-116); ANION GAP 17.1 MEQ/L (5-15); BILIRUBIN,TOTAL 0.3 mg/dL (0.2-1.0); BLOOD UREA NITROGEN 19 mg/dL (9-20); CHLORIDE 102 mEq/L (98-107); Carbon Dioxide 21.7 mEq/L (21-32); Glucose 98 MG/DL (70-110); LIPASE 83 U/L (73-393); Potassium 4.5 mEq/L (3.5-5.1); SGOT/AST 34 U/L (15-37); SGPT/ALT 53 U/L (12-78); SODIUM 136 mEq/L (136-145); Total Protein 7.3 gm/dL (6.4-8.2)
--- NOTE | 2016-04-28 09:34 | XRAY ---
Indication: Abdominal pain. Comparison: March 29, 2016. Portable chest remains hyperinflated and clear with previous CABG surgery. Heart is not enlarged. Vascularity normal. No new/acute findings. Impression: Stable nonacute chest.
--- NOTE | 2016-04-28 10:59 | XRAY ---
Indication: Abdominal pain and cramping. Status post colonoscopy. Multiple contiguous axial images obtained through the abdomen and pelvis using 80 cc Isovue 370 contrast. Water-soluble enteric contrast also given. Comparison: March 24, 2016. Lung bases remain clear with stable small hiatal hernia. Heart is not enlarged. Contrasted stomach and bowel loops again appear nonobstructed with again previous gastric bypass surgery. Appendix again not seen. No free fluid/air. Stable enlarged prostate gland and cholecystectomy clips. Remaining liver, pancreas, spleen, adrenal glands, kidneys, ureters, and bladder appear unremarkable. Mild aortoiliac calcifications. No AAA or pathologic retroperitoneal lymphadenopathy. Osseous structures demonstrate stable L4-S1 fusion surgery with laminectomy and grade 1 L5 anterolisthesis on S1. Stable small bilateral fatty inguinal hernias. Impression: 1. Again no acute intra-abdominal/pelvic abnormalities. 2. Stable hiatal hernia, small bilateral fatty inguinal hernias, enlarged prostate gland, and previous spinal surgery. CT DI 22.87
[2016-04-28 12:11] VITALS: BP 137/88; PULSE 88; O2SAT 98
[2016-04-28 13:31] LABS: BAND 2 % (0.0-2.0); Basophil 1 % (0.0-1.0); Eosinophil 2 % (0.00-3.0); Platelet Estimate NORMAL (NORMAL); Total Cells Counted 100
[2016-04-28 13:32] LABS: ANISOCYTOSIS 1+; Hypochromia 2+; Microcytosis 2+; Polychromasia 1+
== END 2016-04-28 12:08 | disposition home or self-care (01) ==
LOC: ED 08:15
DX: R10.10 Upper abdominal pain, unspecified (principal); D50.8 Other iron deficiency anemias; Z98.890 Other specified postprocedural states
CPT/HCPCS: 36000; 36415; 71010; 74177; 80053; 81002; 83605; 83690; 85025; 93005; 96360; 96361; 96374; 96375; 99284; 99285; J1170; J1200

== ENCOUNTER 2016-05-17 05:41 | Emergency (ER) | payer MEDICARE ==
--- NOTE | 2016-05-17 06:01 | ERPHSYRPT ---
- History of Present Illness Historian: patient Patient Subjective Stated Complaint: "THI SI AN ON GOING ISSUE. I HAVE BEEN HAVING STOMACH ISSUES. I SAW MY PCP AND SHE PUT ME ON MEDS FOR MY STOMACH. THAT NEW MEDICINE ISN'T DOING ANYTHING. I SAW HER 2 WEEKS AGO. I HAD A COLONOSCOPY 3 WEEKS AGO AND THEY DIDN'T FIND ANYTHING." Triage Nursing Assessment: AOX3, BREATHIGN EASY UNLBAORED, SKIN PINK WARM DRY, STEDY GAIT, BS ACTIVE X 4 Timing/Duration: week(s) (3) Activities at Onset: none Quality: aching Abdominal Pain Onset Location: generalized abdomen Pain Radiation: no radiation Severity of Pain-Max: moderate Severity of Pain-Current: moderate Modifying Factors: Improves With: eating Associated Symptoms: chest pain Previous symptoms: no prior history Hx Tetanus, Diphtheria Vaccination/Date Given: No Hx Influenza Vaccination/Date Given: Yes Hx Pneumococcal Vaccination/Date Given: No <DODIE CHILDRESS - Last Filed: 05/17/16 06:38> <JUAN DAVID MEZA - Last Filed: 05/17/16 08:34> - History of Present Illness Time Seen by Provider: 05/17/16 05:50 Physician History: The patient is a 55-year-old male who complains of increasing stomach pain for 3 weeks. The pain is constant the hurts more when he eats. It is getting worse. Yesterday a nurse told him he needs to be seen again so he comes in this morning. He states he's had a CT scan of his abdomen recently as well as an upper endoscopy and colonoscopy 3 weeks ago. He states nothing was found. The nurse practitioner has given him Zofran without relief. Patient also complains of being tripped by his dog a week ago when he fell on his right rib cage on a wooden table. He states the rib pain is getting worse. He denies shortness of breath. He denies cough. He denies vomiting or diarrhea or constipation. His past medical history is significant for hypertension, hypothyroidism, gallbladder removal, bariatric surgery, CABG, and back surgery. (DODIE CHILDRESS) Allergies/Adverse Reactions: No Known Drug Allergies Allergy (Verified 04/28/16 08:24) Home Medications: Levothyroxine Sodium 50 Mcg [Synthroid 50 Mcg] 200 mcg PO DAILY 07/28/11 [ History] Lisinopril 20 mg [Zestril 20 MG] 20 mg PO DAILY 03/29/16 [History] Aspirin 81 mg PO DAILY 04/23/16 [History] PANTOPRAZOLE 40 mg Tablet [Protonix 40MG Tablet] 40 mg PO QAM 04/23/16 [ History] Diazepam [Valium] 2 mg PO BID 05/17/16 [History] Ondansetron [Zofran Odt] 4 mg PO BID 05/17/16 [History] - Review of Systems Constitutional: No Fever, No Chills Eyes: No Symptoms Ears, Nose, & Throat: No Symptoms Respiratory: No Cough, No Dyspnea Cardiac: Chest Pain, No Edema, No Syncope Abdominal/Gastrointestinal: Abdominal Pain Genitourinary Symptoms: No Dysuria Musculoskeletal: Fall, No Back Pain, No Neck Pain Skin: No Rash Neurological: No Dizziness, No Focal Weakness, No Sensory Changes Psychological: No Symptoms Endocrine: No Symptoms Hematologic/Lymphatic: No Symptoms Immunological/Allergic: No Symptoms All Other Systems: Reviewed and Negative <DODIE CHILDRESS - Last Filed: 05/17/16 06:38> - Past Medical History Pertinent Past Medical History: Yes Neurological History: No Pertinent History ENT History: No Pertinent History Cardiac History: Congestive Heart Failure, Coronary Artery Disease, Hypertension Respiratory History: No Pertinent History Endocrine Medical History: Hypothyroidism Musculoskeletal History: Degenerative Disk Disease GI Medical History: GERD History: No Pertinent History Psycho-Social History: Depression Male Reproductive Disorders: No Pertinent History Other Medical History: CHRONIC BACK PAIN. CHRONIC ABDOMINAL PAIN. ANEMIA - Past Surgical History Past Surgical History: Yes Neuro Surgical History: No Pertinent History Cardiac: CABG Respiratory: No Pertinent History Gastrointestinal: Cholecystectomy Genitourinary: No Pertinent History Musculoskeletal: Orthopedic Surgery Male Surgical History: No Pertinent History Other Surgical History: SPINAL SURGERY 2016. BILATERAL KNEE SCOPES, states CABG more than 10yrs ago - Social History Smoking Status: Never smoker Exposure to second hand smoke: No Alcohol Use: None Drug Use: none Patient Lives Alone: No Significant Family History: heart disease, other <DODIE CHILDRESS - Last Filed: 05/17/16 06:38> - Physical Exam General Appearance: no apparent distress, alert Eye Exam: PERRL/EOMI, eyes nml inspection Ears, Nose, Throat Exam: normal ENT inspection, pharynx normal, moist mucous membranes Neck Exam: normal inspection, non-tender, supple, full range of motion Respiratory Exam: chest tenderness (right ribs, no bruising) Cardiovascular Exam: regular rate/rhythm, normal heart sounds Gastrointestinal/Abdomen Exam: tenderness (generalized) Rectal Exam: not done Back Exam: normal inspection, normal range of motion, No CVA tenderness, No vertebral tenderness Extremity Exam: normal inspection, normal range of motion, pelvis stable Neurologic Exam: alert, oriented x 3, cooperative, normal mood/affect, nml cerebellar function, sensation nml, No motor deficits Skin Exam: normal color, warm, dry SpO2 Interpretation: normal SpO2: 100 Oxygen Delivery: Room Air <DODIE CHILDRESS - Last Filed: 05/17/16 06:38> - Radiology Exams Abdomen X-ray Interpretation: Interpreted by me, Other (increased colonic fecal load.) <DODIE CHILDRESS - Last Filed: 05/17/16 06:38> - Radiology Exams Abdomen X-ray Interpretation: Other <JUAN DAVID MEZA - Last Filed: 05/17/16 08:34> Ordered Tests: Active Orders 24 hr Category Date Time Status IV Insertion STAT Care 05/17/16 06:15 Active KUB Stat Exams 05/17/16 06:16 Taken CBC W DIFF Stat Lab 05/17/16 06:41 Completed CMP Stat Lab 05/17/16 06:41 Completed LIPASE Stat Lab 05/17/16 06:41 Completed Lactic Acid Urgent Lab 05/17/16 06:48 Completed Manual Differential NC Stat Lab 05/17/16 06:41 Completed UA Stat Lab 05/17/16 07:10 Completed Medication Summary Discontinued Medications Generic Name Dose Route Start Last Admin Trade Name Kassie PRN Reason Stop Dose Admin Diphenhydramine HCl 25 mg 05/17/16 06:15 05/17/16 06:51 Benadryl 50 Mg/Ml IV 05/17/16 06:16 25 mg STAT ONE Administration Diphenhydramine HCl Confirm 05/17/16 06:32 Benadryl 50 Mg/Ml Administered 05/17/16 06:33 Dose 50 mg .ROUTE .STK-MED ONE Famotidine 20 mg 05/17/16 06:15 05/17/16 06:51 Pepcid 20 Mg Vial IV 05/17/16 06:16 20 mg STAT ONE Administration Famotidine Confirm 05/17/16 06:32 Pepcid 20 Mg Vial Administered 05/17/16 06:33 Dose 20 mg IV .STK-MED ONE Sodium Chloride 1,000 mls @ 999 mls/hr 05/17/16 06:15 05/17/16 06:50 Sodium Chloride 0.9% 1000 Ml IV 05/17/16 07:15 999 mls/hr .Q1H1M STA Administration Sodium Chloride Confirm 05/17/16 06:32 Sodium Chloride 0.9% 1000 Ml Administered 05/17/16 06:33 Dose 1,000 mls @ ud .ROUTE .STK-MED ONE Morphine Sulfate 4 mg 05/17/16 06:15 05/17/16 06:50 Morphine Sulfate 4 Mg Inj IV 05/17/16 06:16 4 mg STAT ONE Administration Morphine Sulfate Confirm 05/17/16 06:32 Morphine Sulfate 4 Mg Inj Administered 05/17/16 06:33 Dose 4 mg .ROUTE .STK-MED ONE Sucralfate 1 g 05/17/16 06:15 05/17/16 06:50 Carafate 1 Gm PO 05/17/16 06:16 1 g STAT ONE Administration Sucralfate Confirm 05/17/16 06:32 Carafate 1 Gm Administered 05/17/16 06:33 Dose 1 g PO .STK-MED ONE Lab/Rad Data: Laboratory Result Diagrams 05/17/16 06:41 05/17/16 06:41 Laboratory Results 05/17/16 05/17/16 05/17/16 Range/Units 07:10 06:48 06:41 WBC (4.0-10.5) K/mm3 RBC (4.1-5.6) M/mm3 Hgb (12.5-18.0) gm/dl Hct (42-50) % MCV (78-100) fl MCH (26-32) pg MCHC (32-36) g/dl RDW (11.5-14.0) % Plt Count (150-450) K/mm3 MPV (6-9.5) fl Segmented Neutrophils (36.-66.) % Lymphocytes (Manual) (24-44) % Monocytes (Manual) (0.0-12.0) % Eosinophils (Manual) (0.00-3.0) % Differential Comment Platelet Estimate (NORMAL) Poikilocytosis Anisocytosis Sodium 143 (136-145) mEq/L Potassium 3.9 (3.5-5.1) mEq/L Chloride 107 (98-107) mEq/L Carbon Dioxide 24.8 (21-32) mEq/L Anion Gap 15.3 H (5-15) MEQ/L BUN 19 (9-20) mg/dL Creatinine 0.96 (0.55-1.30) mg/dl Estimated GFR > 60 ML/MIN Glucose 107 (70-110) MG/DL Lactic Acid 0.8 (0.4-2.0) Calcium 9.0 (8.5-10.1) mg/dL Total Bilirubin 0.4 (0.2-1.0) mg/dL AST 15 (15-37) U/L ALT 15 (12-78) U/L Alkaline Phosphatase 106 (46-116) U/L Serum Total Protein 7.4 (6.4-8.2) gm/dL Albumin 4.1 (3.4-5.0) g/dL Lipase 101 (73-393) U/L Ur Collection Type VOID Urine Color YELLOW (YELLOW) Urine Appearance CLEAR (CLEAR) Urine pH 6.5 (5-6) Ur Specific [place] 1.015 (1.005-1.025) Urine Protein NEGATIVE (Negative) Urine Glucose (UA) NEGATIVE (NEGATIVE) mg/dL Urine Ketones NEGATIVE (NEGATIVE) Urine Nitrite NEGATIVE (NEGATIVE) Urine Bilirubin NEGATIVE (NEGATIVE) Urine Urobilinogen 0.2 (0-1) mg/dL Urine WBC (Auto) NEGATIVE (NEGATIVE) Urine RBC (Auto) NEGATIVE (0-5) Jose/ul Specimen Received 05/17/16 0710 05/17/16 Range/Units 06:41 WBC 3.9 L (4.0-10.5) K/mm3 RBC 4.01 L (4.1-5.6) M/mm3 Hgb 8.1 L (12.5-18.0) gm/dl Hct 28.2 L (42-50) % MCV 70.3 L (78-100) fl MCH 20.1 L (26-32) pg MCHC 28.7 L (32-36) g/dl RDW 22.3 H (11.5-14.0) % Plt Count 236 (150-450) K/mm3 MPV 9.0 (6-9.5) fl Segmented Neutrophils 59 (36.-66.) % Lymphocytes (Manual) 29 (24-44) % Monocytes (Manual) 11 (0.0-12.0) % Eosinophils (Manual) 1 (0.00-3.0) % Differential Comment ABNORMAL Platelet Estimate NORMAL (NORMAL) Poikilocytosis 1+ Anisocytosis 2+ Sodium (136-145) mEq/L Potassium (3.5-5.1) mEq/L Chloride (98-107) mEq/L Carbon Dioxide (21-32) mEq/L Anion Gap (5-15) MEQ/L BUN (9-20) mg/dL Creatinine (0.55-1.30) mg/dl Estimated GFR ML/MIN Glucose (70-110) MG/DL Lactic Acid (0.4-2.0) Calcium (8.5-10.1) mg/dL Total Bilirubin (0.2-1.0) mg/dL AST (15-37) U/L ALT (12-78) U/L Alkaline Phosphatase (46-116) U/L Serum Total Protein (6.4-8.2) gm/dL Albumin (3.4-5.0) g/dL Lipase (73-393) U/L Ur Collection Type Urine Color (YELLOW) Urine Appearance (CLEAR) Urine pH (5-6) Ur Specific [place] (1.005-1.025) Urine Protein (Negative) Urine Glucose (UA) (NEGATIVE) mg/dL Urine Ketones (NEGATIVE) Urine Nitrite (NEGATIVE) Urine Bilirubin (NEGATIVE) Urine Urobilinogen (0-1) mg/dL Urine WBC (Auto) (NEGATIVE) Urine RBC (Auto) (0-5) Jose/ul Specimen Received <DODIE CHILDRESS - Last Filed: 05/17/16 06:38> - Progress Progress: pain not gone completely Discussed with : Other (Rojas George) Counseled pt/family regarding: lab results, diagnosis, need for follow-up <JUAN DAVID MEZA - Last Filed: 05/17/16 08:34> - Progress Progress Note: 05/17/16 06:14 I have reviewed the notes from the patient's endoscopy and colonoscopy performed on April 26. These 2 procedures found a normal stomach with a status post partial gastrectomy and a normal colon. I also reviewed the last ER visit on April 28 at which time patient was complaining of the same abdominal pain. A CT scan of the abdomen and pelvis was performed which was interpreted as negative per tell her radiologist report. The patient's white count was normal at 8.0 hemoglobin was slightly low at 9.2. All other tests were negative including urinalysis, and complete serum chemistry. (DODIE CHILDRESS) <DODIE CHILDRESS - Last Filed: 05/17/16 06:38> - Departure Time of Disposition: 08:30 Departure Disposition: Home Critical Care Time: No <JUAN DAVID MEZA - Last Filed: 05/17/16 08:34> - Departure Clinical Impression: Constipation Qualifiers: Constipation type: unspecified constipation type Qualified Code(s): K59.00 - Constipation, unspecified Anemia Qualifiers: Anemia type: unspecified type Qualified Code(s): D64.9 - Anemia, unspecified Condition: Stable Referrals: ROJAS GEORGE [Primary Care Provider] - Instructions: Abdominal Pain-Adult Prescriptions: Polyethylene Glycol 3350 [Miralax Powder] 17 g PO DAILY PRN PRN #0 bottle PRN Reason: Constipation
[2016-05-17] MEDS ORDERED: MORPHINE SULFATE 4 MG INJ IV ONE (06:15)
[2016-05-17] MEDS ORDERED: BENADRYL 50 MG/ML IV ONE (06:15)
[2016-05-17] MEDS ORDERED: Sodium Chloride 0.9% 1000 ML 1,000 ML IV STA (06:15)
[2016-05-17] MEDS ORDERED: Carafate 1 GM PO ONE ×2 (06:15→06:32)
[2016-05-17] MEDS ORDERED: Pepcid 20 MG VIAL IV ONE ×2 (06:15→06:32)
[2016-05-17] MEDS ORDERED: MORPHINE SULFATE 4 MG INJ ONE (06:32)
[2016-05-17] MEDS ORDERED: Sodium Chloride 0.9% 1000 ML 1,000 ML ONE (06:32)
[2016-05-17] MEDS ORDERED: BENADRYL 50 MG/ML ONE (06:32)
[2016-05-17 06:44] LABS: Mean Cell Volume 70.3 fl (78-100); Platelet Count 236 K/mm3 (150-450); Red Blood Count 4.01 M/mm3 (4.1-5.6); Red Cell Distribution Width 22.3 % (11.5-14.0); White Blood Count 3.9 K/mm3 (4.0-10.5)
[2016-05-17 06:49] LABS: Mean Corpuscular Hemoglobin 20.1 pg (26-32)
[2016-05-17 07:12] LABS: ALBUMIN 4.1 g/dL (3.4-5.0); ALKALINE PHOSPHATASE 106 U/L (46-116); ANION GAP 15.3 MEQ/L (5-15); BILIRUBIN,TOTAL 0.4 mg/dL (0.2-1.0); BLOOD UREA NITROGEN 19 mg/dL (9-20); CHLORIDE 107 mEq/L (98-107); Carbon Dioxide 24.8 mEq/L (21-32); Glucose 107 MG/DL (70-110); LIPASE 101 U/L (73-393); Potassium 3.9 mEq/L (3.5-5.1); SGOT/AST 15 U/L (15-37); SGPT/ALT 15 U/L (12-78); SODIUM 143 mEq/L (136-145); Total Protein 7.4 gm/dL (6.4-8.2)
[2016-05-17 07:26] LABS: Collection Type VOID
[2016-05-17 07:27] LABS: COMPLETE URINE MICROSCOPIC? NO; Ph 6.5 (5-6)
[2016-05-17 08:18] LABS: Eosinophil 1 % (0.00-3.0); Total Cells Counted 100
[2016-05-17 08:19] LABS: ANISOCYTOSIS 2+; Platelet Estimate NORMAL (NORMAL); Poikilocytosis 1+
[2016-05-17] MEDS ORDERED: TORAdol 30 mg Injection IV ONE (08:35)
[2016-05-17] MEDS ORDERED: TORAdol 30 mg Injection ONE (08:41)
[2016-05-17 08:47] VITALS: BP 158/97
--- NOTE | 2016-05-17 08:54 | XRAY ---
Indication: Right lower quadrant pain for one month. Nausea. Comparison: None KUB demonstrates mild scattered colonic fecal debris throughout, aortic calcifications, and previous surgeries including gastric bypass, cholecystectomy, and lower lumbar fusion with intact spinal hardware. Remaining solid organs and osseous structures unremarkable. Lung bases clear. Impression: Mild fecal stasis without obstruction.
[2016-05-17 09:32] VITALS: PULSE 80; O2SAT 100
== END 2016-05-17 09:36 | disposition home or self-care (01) ==
LOC: ED 05:41
DX: K59.00 Constipation, unspecified (principal); D64.9 Anemia, unspecified; R10.84 Generalized abdominal pain; Z79.899 Other long term (current) drug therapy; I25.10 Atherosclerotic heart disease of native coronary artery without angina pectoris; I10 Essential (primary) hypertension; E03.9 Hypothyroidism, unspecified; I50.9 Heart failure, unspecified
CPT/HCPCS: 36000; 36415; 74000; 80053; 81002; 83605; 83690; 85025; 96374; 96375; 99284; J1200; J1885; J2270; A9270-GY

== ENCOUNTER 2016-05-21 06:18 | Emergency (ER) | payer MEDICARE ==
--- NOTE | 2016-05-21 07:22 | ERPHSYRPT ---
- History of Present Illness Historian: patient Exam Limitations: no limitations Patient Subjective Stated Complaint: reports with c/o periumbilical abd pain et nausea onset in the night - denies bowel difficulty Triage Nursing Assessment: ambulatory to treatment area - steady gait. moves all extremities with equal strength. alert/oriented - grimmacing affect. skin pwd - no rash/injury. resps easy - shallow per pain. abd guarding et distention Hx Tetanus, Diphtheria Vaccination/Date Given: Yes Hx Influenza Vaccination/Date Given: No Hx Pneumococcal Vaccination/Date Given: No Immunizations Up to Date: Yes <DODIE DOE - Last Filed: 05/21/16 07:20> - History of Present Illness Timing/Duration: week(s) Activities at Onset: none Quality: cramping, sharpness Abdominal Pain Onset Location: periumbilical, generalized abdomen Pain Radiation: no radiation Severity of Pain-Max: moderate Severity of Pain-Current: moderate Modifying Factors: Improves With: analgesics, eating. Worsens With: defecating Associated Symptoms: loss of appetite, No fever/chills Previous symptoms: same symptoms as today <JUAN DAVID MEZA - Last Filed: 05/21/16 09:19> - History of Present Illness Time Seen by Provider: 05/21/16 07:15 Physician History: Seen by me in ED 5 days ago with same C/O abd pain with constipation. No pain relief despite stated constipation relief. KUB 0n 3..2016 demonstrated mild fecal stasis without obstruction. (JUAN DAVID MEZA) Allergies/Adverse Reactions: No Known Drug Allergies Allergy (Verified 05/21/16 06:30) Home Medications: Levothyroxine Sodium 50 Mcg [Synthroid 50 Mcg] 200 mcg PO DAILY 07/28/11 [ History] Lisinopril 20 mg [Zestril 20 MG] 20 mg PO DAILY 03/29/16 [History] Diazepam [Valium] 2 mg PO BID 05/17/16 [History] Ondansetron [Zofran Odt] 4 mg PO BID 05/17/16 [History] - Review of Systems Constitutional: No Symptoms Eyes: No Symptoms Ears, Nose, & Throat: No Symptoms Respiratory: No Symptoms Cardiac: No Symptoms Abdominal/Gastrointestinal: Abdominal Pain, Appetite Changes Musculoskeletal: No Symptoms Skin: No Symptoms Neurological: No Symptoms Psychological: No Symptoms Endocrine: No Symptoms <MEZAJUAN DAVID - Last Filed: 05/21/16 09:19> - Past Medical History Pertinent Past Medical History: Yes Neurological History: No Pertinent History ENT History: No Pertinent History Cardiac History: Congestive Heart Failure, Coronary Artery Disease, Hypertension Respiratory History: No Pertinent History Endocrine Medical History: Hypothyroidism Musculoskeletal History: Degenerative Disk Disease GI Medical History: No Pertinent History History: No Pertinent History Psycho-Social History: Depression Male Reproductive Disorders: No Pertinent History Other Medical History: CHRONIC BACK PAIN. CHRONIC ABDOMINAL PAIN. ANEMIA - Past Surgical History Past Surgical History: Yes Neuro Surgical History: No Pertinent History Cardiac: CABG Respiratory: No Pertinent History Gastrointestinal: Cholecystectomy Genitourinary: No Pertinent History Musculoskeletal: Orthopedic Surgery Male Surgical History: No Pertinent History Other Surgical History: SPINAL SURGERY 2016. BILATERAL KNEE SCOPES, states CABG more than 10yrs ago - Social History Smoking Status: Never smoker Exposure to second hand smoke: No Alcohol Use: None Drug Use: none Patient Lives Alone: No Significant Family History: heart disease, other <DODIE DOE - Last Filed: 05/21/16 07:20> - Physical Exam SpO2: 100 Oxygen Delivery: Room Air <DODIE DOE - Last Filed: 05/21/16 07:20> - Course Nursing assessment & vital signs reviewed: Yes EKG Interpreted by Me: RATE (94.), Sinus Rhythm, NORMAL AXIS, NORMAL INTERVALS, Other (No acute ischemia and significantly unchanged from ECG of 3.8.2017.) - CT Exams Abdomen/Pelvis CT Interpretation: Tele-radiologist Report (Mild fecal stasis without obstruction. Stable hiatal hernia, previous gastric bypass surgery.) <JUAN DAVID MEZA - Last Filed: 05/21/16 09:19> Ordered Tests: Active Orders 24 hr Category Date Time Status Clean Catch Urine Specimen STAT Care 05/21/16 07:45 Active EKG-ER Only STAT Care 05/21/16 07:45 Active IV Insertion STAT Care 05/21/16 07:45 Active NPO (ED) STAT Care 05/21/16 07:45 Active ABDOMEN AND PELVIS W CONTRAST [CT] Stat Exams 05/21/16 07:45 Completed BLOOD CULTURE Stat Lab 05/21/16 08:00 Received CBC W DIFF Stat Lab 05/21/16 06:38 Completed CMP Stat Lab 05/21/16 06:38 Completed LIPASE Stat Lab 05/21/16 06:38 Completed PROTIME WITH INR Stat Lab 05/21/16 06:38 Completed UA Stat Lab 05/21/16 08:15 Completed Medication Summary Generic Name Dose Route Start Last Admin Trade Name Kassie PRN Reason Stop Dose Admin Sodium Chloride 1,000 mls @ 100 mls/hr 05/21/16 07:45 05/21/16 07:57 Sodium Chloride 0.9% 1000 Ml IV 06/20/16 07:44 100 mls/hr .Q10H VENUS Administration Discontinued Medications Generic Name Dose Route Start Last Admin Trade Name Kassie PRN Reason Stop Dose Admin Hydromorphone HCl 1 mg 05/21/16 07:45 05/21/16 08:01 Hydromorphone 1 Mg/Ml Ampule IV 05/21/16 07:46 1 mg STAT ONE Administration Hydromorphone HCl Confirm 05/21/16 07:51 Hydromorphone 1 Mg/Ml Ampule Administered 05/21/16 07:52 Dose 1 mg .ROUTE .STK-MED ONE Ondansetron HCl 4 mg 05/21/16 07:45 05/21/16 07:58 Zofran 4 Mg/2 Ml Vial IV 05/21/16 07:46 4 mg STAT ONE Administration Ondansetron HCl Confirm 05/21/16 07:51 Zofran 4 Mg/2 Ml Vial Administered 05/21/16 07:52 Dose 4 mg .ROUTE .STK-MED ONE Pantoprazole Sodium 40 mg 05/21/16 07:45 05/21/16 08:04 Protonix 40mg Tablet PO 05/21/16 07:46 Not Given STAT ONE Pantoprazole Sodium Confirm 05/21/16 07:51 Protonix 40 Mg Iv Administered 05/21/16 07:52 Dose 40 mg IV .STK-MED ONE Pantoprazole Sodium 40 mg 05/21/16 08:04 05/21/16 08:05 Protonix 40 Mg Iv IV 05/21/16 08:05 40 mg STAT ONE Administration Lab/Rad Data: Laboratory Result Diagrams 05/21/16 06:38 05/21/16 06:38 Laboratory Results 03/05/21/16 05/21/16 Range/Units 08:15 06:38 06:38 WBC (4.0-10.5) K/mm3 RBC (4.1-5.6) M/mm3 Hgb (12.5-18.0) gm/dl Hct (42-50) % MCV (78-100) fl MCH (26-32) pg MCHC (32-36) g/dl RDW (11.5-14.0) % Plt Count (150-450) K/mm3 MPV (6-9.5) fl Gran % (36.0-66.0) % Lymphocytes % (24.0-44.0) % Monocytes % (0.0-12.0) % Eosinophils % (0.00-5.0) % Basophils % (0.0-0.4) % Basophils # (0-0.4) INR 1.06 (0.8-3.0) Sodium 140 (136-145) mEq/L Potassium 4.3 (3.5-5.1) mEq/L Chloride 103 (98-107) mEq/L Carbon Dioxide 21.1 (21-32) mEq/L Anion Gap 19.8 H (5-15) MEQ/L BUN 30 H (9-20) mg/dL Creatinine 1.03 (0.55-1.30) mg/dl Estimated GFR > 60 ML/MIN Glucose 113 H (70-110) MG/DL Calcium 9.6 (8.5-10.1) mg/dL Total Bilirubin 0.4 (0.2-1.0) mg/dL AST 19 (15-37) U/L ALT 34 (12-78) U/L Alkaline Phosphatase 156 H (46-116) U/L Serum Total Protein 8.3 H (6.4-8.2) gm/dL Albumin 4.7 (3.4-5.0) g/dL Lipase 103 (73-393) U/L Ur Collection Type VOID Urine Color YELLOW (YELLOW) Urine Appearance CLEAR (CLEAR) Urine pH 5.5 (5-6) Ur Specific [place] 1.025 (1.005-1.025) Urine Protein NEGATIVE (Negative) Urine Glucose (UA) NEGATIVE (NEGATIVE) mg/dL Urine Ketones NEGATIVE (NEGATIVE) Urine Nitrite NEGATIVE (NEGATIVE) Urine Bilirubin NEGATIVE (NEGATIVE) Urine Urobilinogen 0.2 (0-1) mg/dL Urine WBC (Auto) NEGATIVE (NEGATIVE) Urine RBC (Auto) NEGATIVE (0-5) Jose/ul Slides for Path Review Specimen Received 05/21/16 0841 05/21/16 Range/Units 06:38 WBC 8.3 (4.0-10.5) K/mm3 RBC 4.81 (4.1-5.6) M/mm3 Hgb 9.7 L (12.5-18.0) gm/dl Hct 32.9 L (42-50) % MCV 68.4 L (78-100) fl MCH 20.1 L (26-32) pg MCHC 29.5 L (32-36) g/dl RDW 22.2 H (11.5-14.0) % Plt Count 353 (150-450) K/mm3 MPV 10.1 H (6-9.5) fl Gran % 69.9 H (36.0-66.0) % Lymphocytes % 17.7 L (24.0-44.0) % Monocytes % 10.9 (0.0-12.0) % Eosinophils % 1.1 (0.00-5.0) % Basophils % 0.4 (0.0-0.4) % Basophils # 0.03 (0-0.4) INR (0.8-3.0) Sodium (136-145) mEq/L Potassium (3.5-5.1) mEq/L Chloride (98-107) mEq/L Carbon Dioxide (21-32) mEq/L Anion Gap (5-15) MEQ/L BUN (9-20) mg/dL Creatinine (0.55-1.30) mg/dl Estimated GFR ML/MIN Glucose (70-110) MG/DL Calcium (8.5-10.1) mg/dL Total Bilirubin (0.2-1.0) mg/dL AST (15-37) U/L ALT (12-78) U/L Alkaline Phosphatase (46-116) U/L Serum Total Protein (6.4-8.2) gm/dL Albumin (3.4-5.0) g/dL Lipase (73-393) U/L Ur Collection Type Urine Color (YELLOW) Urine Appearance (CLEAR) Urine pH (5-6) Ur Specific [place] (1.005-1.025) Urine Protein (Negative) Urine Glucose (UA) (NEGATIVE) mg/dL Urine Ketones (NEGATIVE) Urine Nitrite (NEGATIVE) Urine Bilirubin (NEGATIVE) Urine Urobilinogen (0-1) mg/dL Urine WBC (Auto) (NEGATIVE) Urine RBC (Auto) (0-5) Jose/ul Slides for Path Review Specimen Received <DODIE DOE - Last Filed: 05/21/16 07:20> - Progress Progress: improved Counseled pt/family regarding: lab results, diagnosis, need for follow-up, rad results <JUAN DAVID MEZA - Last Filed: 05/21/16 09:19> - Progress Progress Note: 05/21/16 09:16 Suspect pt. inaccurate re: stated constipation relief. CT finding of again fecal stasis that should be managed without further narcotics aqnd robust efforts of relief of constipation. (JUAN DAVID MEZA) <DODIE DOE - Last Filed: 05/21/16 07:20> - Departure Time of Disposition: 09:15 Departure Disposition: Home Critical Care Time: No <JUAN DAVID MEZA - Last Filed: 05/21/16 09:19> - Departure Clinical Impression: Abdominal pain Qualifiers: Abdominal location: generalized Qualified Code(s): R10.84 - Generalized abdominal pain Constipation Qualifiers: Constipation type: unspecified constipation type Qualified Code(s): K59.00 - Constipation, unspecified Condition: Stable Referrals: ROJAS BAILEY [Primary Care Provider] - Prescriptions: Polyethylene Glycol 3350 [Miralax Powder] 17 g PO DAILY PRN PRN #1 bottle PRN Reason: Constipation
[2016-05-21] MEDS ORDERED: Protonix 40MG Tablet PO ONE (07:45)
[2016-05-21] MEDS ORDERED: Zofran 4 MG/2 ML VIAL IV ONE (07:45)
[2016-05-21] MEDS ORDERED: Hydromorphone 1 mg/ml Ampule IV ONE (07:45)
[2016-05-21] MEDS ORDERED: Sodium Chloride 0.9% 1000 ML 1,000 ML IV SCH (07:45)
[2016-05-21] MEDS ORDERED: Hydromorphone 1 mg/ml Ampule ONE (07:51)
[2016-05-21] MEDS ORDERED: Sodium Chloride 0.9% 1000 ML 1,000 ML ONE (07:51)
[2016-05-21] MEDS ORDERED: PROTONIX 40 MG IV IV ONE ×2 (07:51→08:04)
[2016-05-21] MEDS ORDERED: Zofran 4 MG/2 ML VIAL ONE (07:51)
[2016-05-21 07:54] LABS: BASOPHIL % 0.4 % (0.0-0.4); Eosinophil % 1.1 % (0.00-5.0); Granulocytes % 69.9 % (36.0-66.0); Lymphocytes % 17.7 % (24.0-44.0); Mean Cell Volume 68.4 fl (78-100); Mean Platelet Volume 10.1 fl (6-9.5); Monocytes % 10.9 % (0.0-12.0); Platelet Count 353 K/mm3 (150-450); Red Blood Count 4.81 M/mm3 (4.1-5.6); Red Cell Distribution Width 22.2 % (11.5-14.0); White Blood Count 8.3 K/mm3 (4.0-10.5)
[2016-05-21 07:55] LABS: INR 1.06 (0.8-3.0); PROTIME 11.9 SECONDS (8.83-12.87)
[2016-05-21 07:58] LABS: Mean Corpuscular Hemoglobin 20.1 pg (26-32)
[2016-05-21 08:03] LABS: ALBUMIN 4.7 g/dL (3.4-5.0); ALKALINE PHOSPHATASE 156 U/L (46-116); ANION GAP 19.8 MEQ/L (5-15); BILIRUBIN,TOTAL 0.4 mg/dL (0.2-1.0); BLOOD UREA NITROGEN 30 mg/dL (9-20); CHLORIDE 103 mEq/L (98-107); Carbon Dioxide 21.1 mEq/L (21-32); Glucose 113 MG/DL (70-110); LIPASE 103 U/L (73-393); Potassium 4.3 mEq/L (3.5-5.1); SGOT/AST 19 U/L (15-37); SGPT/ALT 34 U/L (12-78); SODIUM 140 mEq/L (136-145); Total Protein 8.3 gm/dL (6.4-8.2)
[2016-05-21 08:38] LABS: COMPLETE URINE MICROSCOPIC? NO; Collection Type VOID; Ph 5.5 (5-6)
--- NOTE | 2016-05-21 08:53 | XRAY ---
Indication: Abdominal pain and cramping. Colonoscopy April 26, 2016. Multiple contiguous axial images obtained through the abdomen and pelvis using 80 cc Isovue 37 contrast only. Comparison: April 28, 2016. Lung bases remain clear with stable small hiatal hernia. Heart is not enlarged. Contrasted stomach and bowel loops again appear nonobstructed with again previous gastric bypass surgery. There is now mild diffuse scattered colonic fecal debris. Appendix again not seen. No free fluid/air. Stable enlarged prostate gland and cholecystectomy clips. Remaining liver, pancreas, spleen, adrenal glands, kidneys, ureters, and bladder appear unremarkable. Mild aortoiliac calcifications. No AAA or pathologic retroperitoneal lymphadenopathy. Osseous structures demonstrate stable L4-S1 fusion surgery with laminectomy and grade 1 L5 anterolisthesis on S1. Impression: 1. There is now mild fecal stasis without obstruction. 2. Stable hiatal hernia, previous gastric bypass surgery, enlarged prostate gland, and previous spinal surgery. CT DI 22.87
[2016-05-21 09:53] VITALS: BP 145/88; PULSE 100; O2SAT 97
== END 2016-05-21 09:53 | disposition home or self-care (01) ==
LOC: ED 06:18
DX: R10.84 Generalized abdominal pain (principal); K59.00 Constipation, unspecified; I50.9 Heart failure, unspecified; I25.10 Atherosclerotic heart disease of native coronary artery without angina pectoris; I10 Essential (primary) hypertension; E03.9 Hypothyroidism, unspecified
CPT/HCPCS: 36000; 36415; 74177; 80053; 81002; 83690; 85025; 85610; 87040; 93005; 96360; 96361; 96374; 96375; 99284; J1170; J2405

== ENCOUNTER 2017-01-31 16:00 | Emergency (ER) | payer MEDICARE ==
[2017-01-31] MEDS ORDERED: BABY ASPIRIN 81 MG CHEW PO ONE (16:17)
[2017-01-31] MEDS ORDERED: NITRO-BID 2% UD PACKETS TOP ONE (16:17)
--- NOTE | 2017-01-31 16:21 | ERPHSYRPT ---
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 He had CT 2 month ago treated with stent at [facility]. He had CABG 12 years ago. 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 He takes asa at home. He has taken no NTG today. No hx of DM. Timing/Duration: today Severity of Pain-Max: moderate Severity of Pain-Current: moderate Nitro Today/Relief: no nitro taken today Aspirin Treatment Today: 81 mg x 1, provided at home Allergies/Adverse Reactions: No Known Drug Allergies Allergy (Verified 01/31/17 16:05) Home Medications: Levothyroxine Sodium 50 Mcg [Synthroid 50 Mcg] 150 mcg PO DAILY 07/28/11 [ History] Lisinopril 20 mg [Zestril 20 MG] 40 mg PO DAILY 03/29/16 [History] Diazepam [Valium] 2 mg PO TID PRN 05/17/16 [History] Aspirin 81 gm Chew [Baby Aspirin 81 mg Chew] 81 mg DAILY 01/31/17 [History ] Oxycodone HCl [Oxycontin] 10 mg TID 01/31/17 [History] Hx Tetanus, Diphtheria Vaccination/Date Given: Yes Hx Influenza Vaccination/Date Given: No Hx Pneumococcal Vaccination/Date Given: Yes Immunizations Up to Date: No - Review of Systems Constitutional: No Symptoms Eyes: No Symptoms Respiratory: No Cough, No Dyspnea Cardiac: Chest Pain, No Edema, No Syncope Abdominal/Gastrointestinal: No Abdominal Pain, No Nausea, No Vomiting Genitourinary Symptoms: No Dysuria Musculoskeletal: Back Pain (chronic) Skin: No Rash Neurological: No Focal Weakness, No Headache, No Parasthesia All Other Systems: Reviewed and Negative - Past Medical History Pertinent Past Medical History: Yes Neurological History: No Pertinent History ENT History: No Pertinent History Cardiac History: Congestive Heart Failure, Coronary Artery Disease, Hypertension , Myocardial Infarction (CT) Respiratory History: No Pertinent History Endocrine Medical History: Hypothyroidism Musculoskeletal History: Degenerative Disk Disease GI Medical History: No Pertinent History History: No Pertinent History Psycho-Social History: Depression Male Reproductive Disorders: No Pertinent History Other Medical History: CHRONIC BACK PAIN. CHRONIC ABDOMINAL PAIN. ANEMIA - Past Surgical History Past Surgical History: Yes Neuro Surgical History: No Pertinent History Cardiac: CABG Respiratory: No Pertinent History Gastrointestinal: Cholecystectomy Genitourinary: No Pertinent History Musculoskeletal: Orthopedic Surgery Male Surgical History: No Pertinent History Other Surgical History: SPINAL SURGERY 2016. BILATERAL KNEE SCOPES, states CABG more than 10yrs ago - Social History Smoking Status: Never smoker Exposure to second hand smoke: No Alcohol Use: None Drug Use: none Patient Lives Alone: No Significant Family History: heart disease, other - Nursing Vital Signs Nursing Vital Signs: Initial Vital Signs Temperature 98.3 F 01/31/17 16:07 Pulse Rate 99 H 01/31/17 16:07 Respiratory Rate 20 01/31/17 16:07 Blood Pressure 135/94 01/31/17 16:07 O2 Sat by Pulse Oximetry 97 01/31/17 16:07 Pain Scale Pain Intensity 5 - Physical Exam General Appearance: alert Eye Exam: PERRL/EOMI Ears, Nose, Throat Exam: normal ENT inspection, moist mucous membranes Neck Exam: normal inspection, non-tender, supple Respiratory Exam: normal breath sounds, lungs clear Cardiovascular Exam: regular rate/rhythm, other (2+ femoral pulses), No murmur, No pulse deficit Gastrointestinal/Abdomen Exam: soft, No tenderness, No distention Male Genitalia Exam: normal genitalia Rectal Exam: normal rectal tone, other (normal brown stool), No mass Back Exam: normal inspection Extremity Exam: normal inspection, normal range of motion Neurologic Exam: alert, oriented x 3, cooperative, 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 tested, sensation nml, No motor deficits Skin Exam: warm, dry SpO2 Interpretation: normal SpO2: 97 Oxygen Delivery: Room Air - Course Nursing assessment & vital signs reviewed: Yes EKG Interpreted by Me: RATE (93), Sinus Rhythm, NORMAL AXIS, NORMAL INTERVALS ( QTc 441), Non-specific ST Changes - Radiology Exams cxr X-ray Interpretation: Teleradiologist Report, Negative Ordered Tests: Active Orders 24 hr Category Date Time Status Polisher And Buffer STAT Care 01/31/17 16:17 Active Clean Catch Urine Specimen STAT Care 01/31/17 16:17 Active EKG-ER Only STAT Care 01/31/17 16:17 Active EKG-ER Only STAT Care 01/31/17 17:33 Active IV Insertion STAT Care 01/31/17 16:17 Active Pulse Oximetry (ED) STAT Care 01/31/17 16:17 Active CHEST 1 VIEW (PORTABLE) Stat Exams 01/31/17 16:17 Completed CBC W DIFF Stat Lab 01/31/17 16:15 Completed CMP Stat Lab 01/31/17 16:15 Completed Manual Differential NC Stat Lab 01/31/17 16:15 Completed Occult Blood,Stool Other Stat Lab 01/31/17 16:45 Completed PROTIME WITH INR Stat Lab 01/31/17 16:32 Completed PTT Stat Lab 01/31/17 16:32 Completed TROPONIN Q3H Lab 01/31/17 16:15 Completed TROPONIN Q3H Lab 01/31/17 19:30 Ordered TROPONIN Q3H Lab 01/31/17 22:30 Ordered TROPONIN Q3H Lab 02/01/17 01:30 Ordered TROPONIN Q3H Lab 02/01/17 04:30 Ordered Urine Triage Profile Stat Lab 01/31/17 16:30 Completed Medication Summary Generic Name Dose Route Start Last Admin Trade Name Freq PRN Reason Stop Dose Admin Sodium Chloride 1,000 mls @ 50 mls/hr 01/31/17 16:30 01/31/17 16:26 Sodium Chloride 0.9% 1000 Ml IV 03/02/17 16:29 50 mls/hr .Q20H VENUS Administration Discontinued Medications Generic Name Dose Route Start Last Admin Trade Name Freq PRN Reason Stop Dose Admin Aspirin 81 mg 01/31/17 16:17 01/31/17 16:26 Baby Aspirin 81 Mg Chew PO 01/31/17 16:18 81 mg STAT ONE Administration Aspirin Confirm 01/31/17 16:24 Baby Aspirin 81 Mg Chew Administered 01/31/17 16:25 Dose 81 mg .ROUTE .STK-MED ONE Famotidine 20 mg 01/31/17 16:33 01/31/17 16:44 Pepcid 20 Mg Vial IV 01/31/17 16:34 20 mg STAT ONE Administration Famotidine Confirm 01/31/17 16:43 Pepcid 20 Mg Vial Administered 01/31/17 16:44 Dose 20 mg IV .STK-MED ONE Fentanyl Citrate 50 mcg 01/31/17 17:33 01/31/17 17:46 Sublimaze 100 Mcg/2 Ml IV 01/31/17 17:34 50 mcg STAT ONE Administration Fentanyl Citrate Confirm 01/31/17 17:45 Sublimaze 100 Mcg/2 Ml Administered 01/31/17 17:46 Dose 100 mcg .ROUTE .STK-MED ONE Nitroglycerin 1 gm 01/31/17 16:17 01/31/17 16:26 Nitro-Bid 2% Ud Packets TOP 01/31/17 16:18 1 gm STAT ONE Administration Nitroglycerin Confirm 01/31/17 16:24 Nitro-Bid 2% Ud Packets Administered 01/31/17 16:25 Dose 1 gm .ROUTE .STK-MED ONE Lab/Rad Data: Laboratory Result Diagrams 01/31/17 16:15 01/31/17 16:15 Laboratory Results 01/31/17 01/31/17 01/31/17 Range/Units 16:45 16:32 16:30 WBC (4.0-10.5) K/mm3 RBC (4.1-5.6) M/mm3 Hgb (12.5-18.0) gm/dl Hct (42-50) % MCV (78-100) fl MCH (26-32) pg MCHC (32-36) g/dl RDW (11.5-14.0) % Plt Count (150-450) K/mm3 MPV (6-9.5) fl Gran % (36.0-66.0) % Lymphocytes % (24.0-44.0) % Monocytes % (0.0-12.0) % Eosinophils % (0.00-5.0) % Basophils % (0.0-0.4) % Segmented Neutrophils (36.-66.) % Band Neutrophils (0.0-2.0) % Lymphocytes (Manual) (24-44) % Monocytes (Manual) (0.0-12.0) % Eosinophils (Manual) (0.00-3.0) % Basophils # (0-0.4) Nucleated RBCs % Differential Comment Toxic Granulation Platelet Estimate (NORMAL) Hypochromasia Poikilocytosis Anisocytosis INR 1.07 (0.8-3.0) APTT 29.0 (24.1-36.1) SECONDS Sodium (136-145) mEq/L Potassium (3.5-5.1) mEq/L Chloride (98-107) mEq/L Carbon Dioxide (21-32) mEq/L Anion Gap (5-15) MEQ/L BUN (9-20) mg/dL Creatinine (0.55-1.30) mg/dl Estimated GFR ML/MIN Glucose (70-110) MG/DL Calcium (8.5-10.1) mg/dL Total Bilirubin (0.2-1.0) mg/dL AST (15-37) U/L ALT (12-78) U/L Alkaline Phosphatase (46-116) U/L Troponin I (0.000-0.056) ng/ml Serum Total Protein (6.4-8.2) gm/dL Albumin (3.4-5.0) g/dL Stool Occult Blood NEGATIVE (Negative) Urine Opiates Level NEG. (NEGATIVE) Ur Methadone NEG. (NEGATIVE) Urine Barbiturates NEG. (NEGATIVE) Ur Phencyclidine (PCP) NEG. (NEGATIVE) Urine Amphetamine NEG. (NEGATIVE) U Benzodiazepine Level POS. (NEGATIVE) Urine Cocaine NEG. (NEGATIVE) Urine Marijuana (THC) NEG. (NEGATIVE) 01/31/17 01/31/17 01/31/17 Range/Units 16:15 16:15 16:15 WBC 5.9 (4.0-10.5) K/mm3 RBC 3.28 L (4.1-5.6) M/mm3 Hgb 7.9 L (12.5-18.0) gm/dl Hct 26.6 L (42-50) % MCV 81.1 (78-100) fl MCH 24.0 L (26-32) pg MCHC 29.7 L (32-36) g/dl RDW 22.1 H (11.5-14.0) % Plt Count 167 (150-450) K/mm3 MPV 10.4 H (6-9.5) fl Gran % 87.8 H (36.0-66.0) % Lymphocytes % 6.3 L (24.0-44.0) % Monocytes % 4.6 (0.0-12.0) % Eosinophils % 1.0 (0.00-5.0) % Basophils % 0.3 (0.0-0.4) % Segmented Neutrophils 84 H (36.-66.) % Band Neutrophils 4 H (0.0-2.0) % Lymphocytes (Manual) 9 L (24-44) % Monocytes (Manual) 2 (0.0-12.0) % Eosinophils (Manual) 1 (0.00-3.0) % Basophils # 0.02 (0-0.4) Nucleated RBCs 1 % Differential Comment ABNORMAL Toxic Granulation 1+ Platelet Estimate NORMAL (NORMAL) Hypochromasia 2+ Poikilocytosis 2+ Anisocytosis 2+ INR (0.8-3.0) APTT (24.1-36.1) SECONDS Sodium 135 L (136-145) mEq/L Potassium 3.8 (3.5-5.1) mEq/L Chloride 101 (98-107) mEq/L Carbon Dioxide 22.4 (21-32) mEq/L Anion Gap 15.7 H (5-15) MEQ/L BUN 15 (9-20) mg/dL Creatinine 1.12 (0.55-1.30) mg/dl Estimated GFR > 60 ML/MIN Glucose 185 H (70-110) MG/DL Calcium 8.5 (8.5-10.1) mg/dL Total Bilirubin 0.60 (0.2-1.0) mg/dL AST 77 H (15-37) U/L ALT 84 H (12-78) U/L Alkaline Phosphatase 124 H (46-116) U/L Troponin I 1.052 H* (0.000-0.056) ng/ml Serum Total Protein 6.7 (6.4-8.2) gm/dL Albumin 3.7 (3.4-5.0) g/dL Stool Occult Blood (Negative) Urine Opiates Level (NEGATIVE) Ur Methadone (NEGATIVE) Urine Barbiturates (NEGATIVE) Ur Phencyclidine (PCP) (NEGATIVE) Urine Amphetamine (NEGATIVE) U Benzodiazepine Level (NEGATIVE) Urine Cocaine (NEGATIVE) Urine Marijuana (THC) (NEGATIVE) - Progress Progress Note: 01/31/17 17:49 Still some pain but overlay of his chronic back pain. He is stable. Troponin elevated. 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 Pt and family aware. 01/31/17 18:[address] Aviles. Called [facility] transfer Center. Spoke to Dr Eugenio Johnston who accepts transfer to [facility] ER. Counseled pt/family regarding: lab results, diagnosis, need for follow-up, rad results - Departure Time of Disposition: 18:03 Departure Disposition: Transfer ([facility]) Clinical Impression: Non-ST elevated myocardial infarction (non-STEMI), Anemia Condition: Fair Critical Care Time: No
[2017-01-31 16:23] LABS: BASOPHIL % 0.3 % (0.0-0.4); Granulocytes % 87.8 % (36.0-66.0); Lymphocytes % 6.3 % (24.0-44.0); Mean Cell Volume 81.1 fl (78-100); Mean Platelet Volume 10.4 fl (6-9.5); Monocytes % 4.6 % (0.0-12.0); Platelet Count 167 K/mm3 (150-450); Red Blood Count 3.28 M/mm3 (4.1-5.6); Red Cell Distribution Width 22.1 % (11.5-14.0); White Blood Count 5.9 K/mm3 (4.0-10.5)
[2017-01-31] MEDS ORDERED: Sodium Chloride 0.9% 1000 ML 1,000 ML ONE (16:24)
[2017-01-31] MEDS ORDERED: BABY ASPIRIN 81 MG CHEW ONE (16:24)
[2017-01-31] MEDS ORDERED: NITRO-BID 2% UD PACKETS ONE (16:24)
[2017-01-31] MEDS ORDERED: Sodium Chloride 0.9% 1000 ML 1,000 ML IV SCH (16:30)
[2017-01-31] MEDS ORDERED: Pepcid 20 MG VIAL IV ONE ×2 (16:33→16:43)
--- NOTE | 2017-01-31 16:39 | XRAY ---
Indication: Chest pain. Cough. Comparison: April 28, 2016. Portable chest unchanged again hyperinflated and clear with previous CABG surgery. Heart is not enlarged. Bony thorax intact again with mild degenerative changes. No new/acute findings. Impression: Stable nonacute chest with chronic features.
[2017-01-31 16:46] LABS: INR 1.07 (0.8-3.0); PROTIME 11.9 SECONDS (8.83-12.87)
[2017-01-31 16:52] LABS: ALBUMIN 3.7 g/dL (3.4-5.0); ALKALINE PHOSPHATASE 124 U/L (46-116); ANION GAP 15.7 MEQ/L (5-15); BLOOD UREA NITROGEN 15 mg/dL (9-20); CHLORIDE 101 mEq/L (98-107); Carbon Dioxide 22.4 mEq/L (21-32); Glucose 185 MG/DL (70-110); Potassium 3.8 mEq/L (3.5-5.1); SGOT/AST 77 U/L (15-37); SGPT/ALT 84 U/L (12-78); SODIUM 135 mEq/L (136-145); Total Protein 6.7 gm/dL (6.4-8.2)
[2017-01-31 17:09] VITALS: O2SAT 97
[2017-01-31 17:12] LABS: ANISOCYTOSIS 2+; BAND 4 % (0.0-2.0); Eosinophil 1 % (0.00-3.0); Hypochromia 2+; Nucleated Red Blood Cell 1 %; Platelet Estimate NORMAL (NORMAL); Poikilocytosis 2+; Total Cells Counted 100; Toxic Granulation 1+
[2017-01-31] MEDS ORDERED: SUBLIMAZE 100 MCG/2 ML IV ONE (17:33)
[2017-01-31] MEDS ORDERED: SUBLIMAZE 100 MCG/2 ML ONE (17:45)
[2017-01-31 17:55] VITALS: BP 133/92; PULSE 92
== END 2017-01-31 18:10 | disposition short-term general hospital (02) ==
LOC: ED 16:00
DX: I21.4 Non-ST elevation (NSTEMI) myocardial infarction (principal); D64.9 Anemia, unspecified; R07.89 Other chest pain; Z79.899 Other long term (current) drug therapy; Z79.891 Long term (current) use of opiate analgesic; I50.9 Heart failure, unspecified; I25.10 Atherosclerotic heart disease of native coronary artery without angina pectoris; I10 Essential (primary) hypertension; I25.2 Old myocardial infarction
CPT/HCPCS: 36000; 36415; 71010; 80053; 80307; 82272; 84484; 85025; 85610; 85730; 93005; 93041; 96360; 96374; 99285; J3010; A9270-GY

== ENCOUNTER 2017-12-03 17:04 | Emergency (ER) | payer MEDICARE ==
--- NOTE | 2017-12-03 17:42 | ERPHSYRPT ---
- History of Present Illness Time Seen by Provider: 12/03/17 17:34 Historian: patient Exam Limitations: no limitations Patient Subjective Stated Complaint: pt co abd pain for 3 weeks ,was at [facility] last week for same thing, pt states he is vomiting daily after eating, no fever, Triage Nursing Assessment: pt alert, walked in, resp easy, skin w/d/p. abd soft Physician History: The patient is a 57-year-old male coming in complaining of worsening chronic abdominal pain. This particular episode of his abdominal pain began 3 weeks ago. He was seen at [facility] one week ago for the same. He states nothing was found during the examination and was told to follow-up with his local medical doctor, Dr. Altamirano. He vomits almost after every meal. He has lost 13 pounds in one month. He denies diarrhea. He denies fever. He takes a pain medicine for his chronic back pain. His past medical history is significant for chronic abdominal pain, chronic back pain, gastric bypass surgery, several MIs, several cardiac stents with the most recent being 3 months ago, GERD, hiatal hernia, high cholesterol, appendectomy, and hypothyroidism. Timing/Duration: week(s) (3), gradual onset, worse Activities at Onset: none Quality: sharpness, stabbing Abdominal Pain Onset Location: RLQ Pain Radiation: no radiation Severity of Pain-Max: severe Severity of Pain-Current: severe Modifying Factors: Improves With: nothing Associated Symptoms: nausea, vomiting, No diarrhea Previous symptoms: same symptoms as today, recently seen, recently treated Allergies/Adverse Reactions: No Known Drug Allergies Allergy (Verified 12/03/17 18:19) Home Medications: Levothyroxine Sodium 50 Mcg [Synthroid 50 Mcg] 150 mcg PO DAILY 07/28/11 [ History] Lisinopril 20 mg [Zestril 20 MG] 40 mg PO DAILY 03/29/16 [History] Diazepam [Valium] 2 mg PO TID PRN 05/17/16 [History] Aspirin 81 gm Chew [Baby Aspirin 81 mg Chew] 81 mg DAILY 01/31/17 [History ] Atorvastatin Calcium 1 ea DAILY 12/03/17 [History] Clopidogrel Bisulfate [Clopidogrel] 75 mg DAILY 12/03/17 [History] Oxycodone Myristate [Xtampza ER] 1 ea BID 12/03/17 [History] PANTOPRAZOLE 40 mg Tablet [Protonix 40MG Tablet] 40 mg DAILY 12/03/17 [ History] Hx Tetanus, Diphtheria Vaccination/Date Given: No Hx Influenza Vaccination/Date Given: No Hx Pneumococcal Vaccination/Date Given: No Immunizations Up to Date: Yes - Review of Systems Constitutional: No Fever, No Chills Eyes: No Symptoms Ears, Nose, & Throat: No Symptoms Respiratory: No Cough, No Dyspnea Cardiac: No Chest Pain, No Edema, No Syncope Abdominal/Gastrointestinal: Abdominal Pain, Nausea, Vomiting, No Diarrhea Genitourinary Symptoms: No Dysuria Musculoskeletal: No Back Pain, No Neck Pain Skin: No Rash Neurological: No Dizziness, No Focal Weakness, No Sensory Changes Psychological: No Symptoms Endocrine: No Symptoms Hematologic/Lymphatic: No Symptoms Immunological/Allergic: No Symptoms All Other Systems: Reviewed and Negative - Past Medical History Pertinent Past Medical History: Yes Neurological History: No Pertinent History ENT History: No Pertinent History Cardiac History: Coronary Artery Disease, Hypertension, Myocardial Infarction ( [place]) Respiratory History: No Pertinent History Endocrine Medical History: Hypothyroidism Musculoskeletal History: Degenerative Disk Disease GI Medical History: No Pertinent History History: No Pertinent History Psycho-Social History: Depression Male Reproductive Disorders: No Pertinent History Other Medical History: CHRONIC BACK PAIN. CHRONIC ABDOMINAL PAIN. ANEMIA - Past Surgical History Past Surgical History: Yes Neuro Surgical History: No Pertinent History Cardiac: CABG Respiratory: No Pertinent History Gastrointestinal: Cholecystectomy Genitourinary: No Pertinent History Musculoskeletal: Orthopedic Surgery Male Surgical History: No Pertinent History Other Surgical History: SPINAL SURGERY 2016. BILATERAL KNEE SCOPES, states CABG more than 10yrs ago - Social History Smoking Status: Never smoker Exposure to second hand smoke: No Alcohol Use: None Drug Use: none Patient Lives Alone: No Significant Family History: heart disease, other - Nursing Vital Signs Nursing Vital Signs: Initial Vital Signs Pulse Rate 80 12/03/17 18:00 Respiratory Rate 16 12/03/17 18:00 Blood Pressure 169/116 12/03/17 18:00 O2 Sat by Pulse Oximetry 99 12/03/17 18:00 Pain Scale Pain Intensity 8 - Physical Exam General Appearance: mild distress Eye Exam: PERRL/EOMI, eyes nml inspection Ears, Nose, Throat Exam: normal ENT inspection, pharynx normal, moist mucous membranes Neck Exam: normal inspection, non-tender, supple, full range of motion Respiratory Exam: normal breath sounds, lungs clear, No respiratory distress Cardiovascular Exam: regular rate/rhythm, normal heart sounds Gastrointestinal/Abdomen Exam: normal bowel sounds, tenderness (RLQ), guarding Rectal Exam: not done Back Exam: normal inspection, normal range of motion, No CVA tenderness, No vertebral tenderness Extremity Exam: normal inspection, normal range of motion, pelvis stable Neurologic Exam: alert, oriented x 3, cooperative, normal mood/affect, nml cerebellar function, sensation nml, No motor deficits Skin Exam: normal color, warm, dry SpO2 Interpretation: normal Oxygen Delivery: Room Air - Course EKG Interpreted by Me: RATE, Sinus Rhythm, NORMAL AXIS, NORMAL INTERVALS, NORMAL QRS, NORMAL ST-T, Other (no change compared to EKG from 01/21/17.) Ordered Tests: Active Orders 24 hr Category Date Time Status Clean Catch Urine Specimen STAT Care 12/03/17 17:46 Active EKG-ER Only STAT Care 12/03/17 18:31 Active IV Insertion STAT Care 12/03/17 17:46 Active ABDOMEN AND PELVIS W/0 CONTRAS [CT] Stat Exams 12/03/17 17:46 Taken AMYLASE Stat Lab 12/03/17 15:30 Completed CBC W DIFF Stat Lab 12/03/17 15:30 Completed CMP Stat Lab 12/03/17 15:30 Completed LIPASE Stat Lab 12/03/17 15:30 Completed Lactic Acid Stat Lab 12/03/17 17:46 Completed TROPONIN Q3H Lab 12/03/17 15:30 Completed TROPONIN Q3H Lab 12/03/17 21:00 Ordered TROPONIN Q3H Lab 12/04/17 00:00 Ordered TROPONIN Q3H Lab 12/04/17 03:00 Ordered TROPONIN Q3H Lab 12/04/17 06:00 Ordered UA W/RFX UR CULTURE Stat Lab 12/03/17 18:00 Completed Medication Summary Discontinued Medications Generic Name Dose Route Start Last Admin Trade Name Freq PRN Reason Stop Dose Admin Sodium Chloride 1,000 mls @ 999 mls/hr 12/03/17 17:46 12/03/17 18:56 Sodium Chloride 0.9% 1000 Ml IV 12/03/17 18:46 Infused .Q1H1M STA Infusion Sodium Chloride Confirm 12/03/17 17:52 Sodium Chloride 0.9% 1000 Ml Administered 12/03/17 17:53 Dose 1,000 mls @ ud .ROUTE .STK-MED ONE Morphine Sulfate 4 mg 12/03/17 17:46 12/03/17 17:56 Morphine Sulfate 4 Mg Inj IV 12/03/17 17:47 4 mg STAT ONE Administration Morphine Sulfate Confirm 12/03/17 17:52 Morphine Sulfate 4 Mg Inj Administered 12/03/17 17:53 Dose 4 mg .ROUTE .STK-MED ONE Ondansetron HCl 4 mg 12/03/17 17:46 12/03/17 17:57 Zofran 4 Mg/2 Ml Vial IV 12/03/17 17:47 4 mg STAT ONE Administration Ondansetron HCl Confirm 12/03/17 17:52 Zofran 4 Mg/2 Ml Vial Administered 12/03/17 17:53 Dose 4 mg .ROUTE .STK-MED ONE Lab/Rad Data: Laboratory Result Diagrams 12/03/17 15:30 12/03/17 15:30 Laboratory Results 12/03/17 12/03/17 12/03/17 Range/Units 18:00 17:46 15:30 WBC (4.0-10.5) K/mm3 RBC (4.1-5.6) M/mm3 Hgb (12.5-18.0) gm/dl Hct (42-50) % MCV (78-100) fl MCH (26-32) pg MCHC (32-36) g/dl RDW (11.5-14.0) % Plt Count (150-450) K/mm3 MPV (6-9.5) fl Gran % (36.0-66.0) % Eos # (Auto) (0-0.5) Absolute Lymphs (auto) (1.0-4.6) Absolute Monos (auto) (0.0-1.3) Lymphocytes % (24.0-44.0) % Monocytes % (0.0-12.0) % Eosinophils % (0.00-5.0) % Basophils % (0.0-0.4) % Absolute Granulocytes (1.4-6.9) Basophils # (0-0.4) Sodium (137-145) mmol/L Potassium (3.5-5.1) mmol/L Chloride (98-107) mmol/L Carbon Dioxide (22-30) mmol/L Anion Gap (5-15) MEQ/L BUN (9-20) mg/dL Creatinine (0.66-1.25) mg/dL Estimated GFR ML/MIN Glucose (74-106) mg/dL Lactic Acid 1.5 (0.4-2.0) Calcium (8.4-10.2) mg/dL Total Bilirubin (0.2-1.3) mg/dL AST (17-59) U/L ALT (0-50) U/L Alkaline Phosphatase (38-126) U/L Troponin I 2.080 H* (0.000-0.034) ng/mL Serum Total Protein (6.3-8.2) g/dL Albumin (3.5-5.0) g/dL Amylase (30-110) U/L Lipase (23-300) U/L Urine Color YELLOW (YELLOW) Urine Appearance CLEAR (CLEAR) Urine pH 6.0 (5-6) Ur Specific [place] 1.014 (1.005-1.025) Urine Protein NEGATIVE (Negative) Urine Ketones NEGATIVE (NEGATIVE) Urine Blood NEGATIVE (0-5) Jose/ul Urine Nitrite NEGATIVE (NEGATIVE) Urine Bilirubin NEGATIVE (NEGATIVE) Urine Urobilinogen NEGATIVE (0-1) mg/dL Ur Leukocyte Esterase NEGATIVE (NEGATIVE) Urine WBC (Auto) 0-2 (0-5) /HPF Urine RBC (Auto) 0-2 (0-2) /HPF U Epithel Cells (Auto) RARE (FEW) /HPF Urine Bacteria (Auto) RARE (NEGATIVE) /HPF Urine Mucus (Auto) SLIGHT (NEGATIVE) /HPF Urine Culture Reflexed NO (NO) Urine Glucose NEGATIVE (NEGATIVE) mg/dL 12/03/17 12/03/17 Range/Units 15:30 15:30 WBC 5.2 (4.0-10.5) K/mm3 RBC 5.11 (4.1-5.6) M/mm3 Hgb 11.0 L (12.5-18.0) gm/dl Hct 34.6 L (42-50) % MCV 67.7 L (78-100) fl MCH 21.5 L (26-32) pg MCHC 31.8 L (32-36) g/dl RDW 20.1 H (11.5-14.0) % Plt Count 372 (150-450) K/mm3 MPV 9.9 H (6-9.5) fl Gran % 72.3 H (36.0-66.0) % Eos # (Auto) 0.04 (0-0.5) Absolute Lymphs (auto) 0.93 L (1.0-4.6) Absolute Monos (auto) 0.44 (0.0-1.3) Lymphocytes % 18.0 L (24.0-44.0) % Monocytes % 8.5 (0.0-12.0) % Eosinophils % 0.8 (0.00-5.0) % Basophils % 0.4 (0.0-0.4) % Absolute Granulocytes 3.74 (1.4-6.9) Basophils # 0.02 (0-0.4) Sodium 142 (137-145) mmol/L Potassium 3.9 (3.5-5.1) mmol/L Chloride 107 (98-107) mmol/L Carbon Dioxide 24 (22-30) mmol/L Anion Gap 14.7 (5-15) MEQ/L BUN 15 (9-20) mg/dL Creatinine 0.80 (0.66-1.25) mg/dL Estimated GFR > 60.0 ML/MIN Glucose 95 (74-106) mg/dL Lactic Acid (0.4-2.0) Calcium 9.7 (8.4-10.2) mg/dL Total Bilirubin 0.40 (0.2-1.3) mg/dL AST 68 H (17-59) U/L ALT 39 (0-50) U/L Alkaline Phosphatase 106 (38-126) U/L Troponin I (0.000-0.034) ng/mL Serum Total Protein 7.5 (6.3-8.2) g/dL Albumin 4.7 (3.5-5.0) g/dL Amylase 66 (30-110) U/L Lipase 41 (23-300) U/L Urine Color (YELLOW) Urine Appearance (CLEAR) Urine pH (5-6) Ur Specific [place] (1.005-1.025) Urine Protein (Negative) Urine Ketones (NEGATIVE) Urine Blood (0-5) Jose/ul Urine Nitrite (NEGATIVE) Urine Bilirubin (NEGATIVE) Urine Urobilinogen (0-1) mg/dL Ur Leukocyte Esterase (NEGATIVE) Urine WBC (Auto) (0-5) /HPF Urine RBC (Auto) (0-2) /HPF U Epithel Cells (Auto) (FEW) /HPF Urine Bacteria (Auto) (NEGATIVE) /HPF Urine Mucus (Auto) (NEGATIVE) /HPF Urine Culture Reflexed (NO) Urine Glucose (NEGATIVE) mg/dL - Progress Progress: unchanged Counseled pt/family regarding: lab results, diagnosis, rad results - Departure Time of Disposition: 19:41 Departure Disposition: Transfer (Transfer to [facility] per Dr Laurent.) Clinical Impression: Elevated troponin, Abdominal pain Condition: Stable Critical Care Time: No Referrals: GANESH ALTAMIRANO [Primary Care Provider] -
[2017-12-03] MEDS ORDERED: Zofran 4 MG/2 ML VIAL IV ONE ×2 (17:46→19:42)
[2017-12-03] MEDS ORDERED: Sodium Chloride 0.9% 1000 ML 1,000 ML IV STA (17:46)
[2017-12-03] MEDS ORDERED: MORPHINE SULFATE 4 MG INJ IV ONE ×2 (17:46→19:42)
[2017-12-03] MEDS ORDERED: Zofran 4 MG/2 ML VIAL ONE ×2 (17:52→20:07)
[2017-12-03] MEDS ORDERED: MORPHINE SULFATE 4 MG INJ ONE ×2 (17:52→19:49)
[2017-12-03] MEDS ORDERED: Sodium Chloride 0.9% 1000 ML 1,000 ML ONE (17:52)
[2017-12-03 18:00] LABS: BASOPHIL % 0.4 % (0.0-0.4); Basophil (Absolute #) 0.02 (0-0.4); Eosinophil % 0.8 % (0.00-5.0); Eosinophil (Absolute #) 0.04 (0-0.5); Granulocyte Absolute (ANC) 3.74 (1.4-6.9); Granulocytes % 72.3 % (36.0-66.0); Hematocrit 34.6 % (42-50); Lymphocyte (Absolute #) 0.93 (1.0-4.6); Mean Cell Volume 67.7 fl (78-100); Mean Corpuscular Hemoglobin 21.5 pg (26-32); Mean Corpuscular Hgb Concent. 31.8 g/dl (32-36); Mean Platelet Volume 9.9 fl (6-9.5); Monocyte (Absolute #) 0.44 (0.0-1.3); Monocytes % 8.5 % (0.0-12.0); Platelet Count 372 K/mm3 (150-450); Red Blood Count 5.11 M/mm3 (4.1-5.6); Red Cell Distribution Width 20.1 % (11.5-14.0); White Blood Count 5.2 K/mm3 (4.0-10.5)
[2017-12-03 18:12] LABS: ALBUMIN 4.7 g/dL (3.5-5.0); ALKALINE PHOSPHATASE 106 U/L (38-126); AMYLASE 66 U/L (30-110); ANION GAP 14.7 MEQ/L (5-15); BLOOD UREA NITROGEN 15 mg/dL (9-20); CHLORIDE 107 mmol/L (98-107); Calcium 9.7 mg/dL (8.4-10.2); Carbon Dioxide 24 mmol/L (22-30); Glucose 95 mg/dL (74-106); LIPASE 41 U/L (23-300); Potassium 3.9 mmol/L (3.5-5.1); SGOT/AST 68 U/L (17-59); SGPT/ALT 39 U/L (0-50); SODIUM 142 mmol/L (137-145); Total Protein 7.5 g/dL (6.3-8.2)
[2017-12-03 18:21] LABS: Appearance CLEAR (CLEAR); Bilirubin NEGATIVE (NEGATIVE); Blood NEGATIVE Ery/ul (0-5); Glucose NEGATIVE (NEGATIVE); Ketones NEGATIVE (NEGATIVE); Leukocyte Esterase NEGATIVE (NEGATIVE); Nitrite NEGATIVE (NEGATIVE); Protein,Urine Dip NEGATIVE (Negative); Specific Gravity 1.014 (1.005-1.025); Urobilinogen NEGATIVE mg/dL (0-1)
[2017-12-03] MEDS ORDERED: Heparin 5000 UNITS/0.5 ML (HIGH RISK MED) IV ONE (19:42)
[2017-12-03] MEDS ORDERED: BABY ASPIRIN 81 MG CHEW PO ONE (19:42)
[2017-12-03] MEDS ORDERED: Ntg 0.2MG/Ml in D5W GLASS*** 250 ML IV PRN (19:42)
[2017-12-03] MEDS ORDERED: Ntg 0.2MG/Ml in D5W GLASS*** 250 ML IV ONE (19:49)
[2017-12-03] MEDS ORDERED: Heparin 5000 UNITS/0.5 ML (HIGH RISK MED) ONE (19:49)
[2017-12-03] MEDS ORDERED: BABY ASPIRIN 81 MG CHEW ONE (19:49)
[2017-12-03] MEDS ORDERED: Heparin 25,000 units/D5W 250ML PREMIX 25,000 UNITS/250 ML BAG IV SCH (20:00)
[2017-12-03 20:22] VITALS: BP 171/113; PULSE 72; O2SAT 98
--- NOTE | 2017-12-04 07:22 | XRAY ---
Indication: Right lower quadrant pain 3 weeks. Multiple contiguous axial images obtained through the abdomen and pelvis without contrast as ordered. Comparison: May 21, 2016. Lung bases demonstrates mild bibasilar dependent atelectasis. Heart is not enlarged. Stable small hiatal hernia. Again previous gastric bypass surgery. Noncontrasted stomach and bowel loops appear nonobstructed. Appendix not seen. Stable enlarged prostate gland and cholecystectomy clips. No free fluid/air. Remaining liver, pancreas, spleen, adrenal glands, kidneys, ureters, and bladder appear unremarkable for noncontrast exam. Stable mild aortoiliac calcifications without AAA. Osseous structures intact again with L4-S1 fusion surgery and grade 1 L5 anterolisthesis. No ventral or inguinal hernias. Impression: 1. Stable gastric bypass surgery, small hiatal hernia, enlarged prostate gland, L4-S1 fusion surgery, and grade 1 L5 anterolisthesis. 2. No new or acute intra-abdominal/pelvic abnormalities on this noncontrast exam. Comment: Preliminary interpretation was made by C. No critical discrepancy. CTDI 21.92
== END 2017-12-03 20:23 | disposition short-term general hospital (02) ==
LOC: ED 17:04
DX: R77.8 Other specified abnormalities of plasma proteins (principal); R10.31 Right lower quadrant pain; R11.2 Nausea with vomiting, unspecified; Z79.899 Other long term (current) drug therapy; I10 Essential (primary) hypertension
CPT/HCPCS: 36000; 36415; 74176; 80053; 81001; 82150; 83605; 83690; 84484; 85025; 93005; 96360; 96374; 96375; 96376; 99285; J1644; J2270; J2405; A9270-GY

== ENCOUNTER 2018-01-26 01:02 | Emergency (ER) | payer MEDICARE ==
[2018-01-26] MEDS ORDERED: MORPHINE SULFATE 4 MG INJ IV ONE ×3 (01:24→05:01)
[2018-01-26] MEDS ORDERED: Sodium Chloride 0.9% 1000 ML 1,000 ML IV STA (01:24)
[2018-01-26] MEDS ORDERED: Zofran 4 MG/2 ML VIAL IV ONE (01:24)
[2018-01-26] MEDS ORDERED: Zofran 4 MG/2 ML VIAL ONE (01:29)
[2018-01-26] MEDS ORDERED: Sodium Chloride 0.9% 1000 ML 1,000 ML ONE ×2 (01:29→05:07)
[2018-01-26] MEDS ORDERED: MORPHINE SULFATE 4 MG INJ ONE ×3 (01:29→05:07)
--- NOTE | 2018-01-26 01:29 | ERPHSYRPT ---
- History of Present Illness Time Seen by Provider: 01/26/18 01:19 Historian: patient Exam Limitations: no limitations Patient Subjective Stated Complaint: Pt states "I had an infusion of 3 units of blood yesterday due to bleeding into my abdomen and they can't find it. Ever since I got the blood, my stomach has been hurting horribly and I cannot take it any more." Triage Nursing Assessment: Pt alert and oriented X 3, skin pwd. Pt ambulates with an upright steady gait, able to speak in clear full sentences. PT in no apparent respiratory distress. Physician History: Is a 57-year-old white male with history of chronic abdominal pain and anemia who states that he received an infusion of 3 units packed red cells yesterday at this hospital he states he's been having periumbilical pain since no nausea no vomiting he has had melanotic stools. Past medical history includes coronary artery disease, high blood pressure, GERD , hiatal hernia, hyperlipidemia, hypothyroidism, degenerative disc disease, depression, chronic back pain, chronic abdominal pain, anemia. Past surgical history includes CABG, cholecystectomy, spine injury in 2016, bilateral knee surgery, CABG, gastric bypass. Timing/Duration: yesterday Activities at Onset: other (received 2 units of packed RBC ) Quality: cramping Abdominal Pain Onset Location: epigastric, periumbilical Severity of Pain-Max: moderate Severity of Pain-Current: moderate Modifying Factors: Improves With: nothing Associated Symptoms: other (melanotic stools), No back, No chest pain, No diaphoresis, No diarrhea, No fever/chills, No fatigue, No headache, No heartburn , No loss of appetite, No nausea, No neck pain, No rash, No shortness of breath , No syncope, No testicular pain, No vomiting, No weakness Previous symptoms: other (patient has had anemia and melanotic stools received packed red blood cells yesterday) Allergies/Adverse Reactions: No Known Drug Allergies Allergy (Verified 01/25/18 08:27) Home Medications: Levothyroxine Sodium 50 Mcg [Synthroid 50 Mcg] 150 mcg PO DAILY 07/28/11 [ History] Lisinopril 20 mg [Zestril 20 MG] 40 mg PO DAILY 03/29/16 [History] Aspirin 81 gm Chew [Baby Aspirin 81 mg Chew] 81 mg UD 01/31/17 [History] Atorvastatin Calcium 1 ea PO DAILY 12/03/17 [History] Clopidogrel Bisulfate [Clopidogrel] 75 mg PO DAILY 12/03/17 [History] PANTOPRAZOLE 40 mg Tablet [Protonix 40MG Tablet] 40 mg DAILY 12/03/17 [ History] Hx Tetanus, Diphtheria Vaccination/Date Given: Yes Hx Influenza Vaccination/Date Given: No Hx Pneumococcal Vaccination/Date Given: Yes Immunizations Up to Date: Yes - Review of Systems Constitutional: No Fever, No Chills Eyes: No Symptoms Ears, Nose, & Throat: No Symptoms Respiratory: No Cough, No Dyspnea Cardiac: No Chest Pain, No Edema, No Syncope Abdominal/Gastrointestinal: Abdominal Pain, Melena, No Nausea, No Vomiting, No Diarrhea, No Constipation, No Hematemesis, No Hematochezia, No Dysphagia, No Appetite Changes Genitourinary Symptoms: No Dysuria Musculoskeletal: No Back Pain, No Neck Pain Skin: No Rash Neurological: No Dizziness, No Focal Weakness, No Sensory Changes Psychological: No Symptoms Endocrine: No Symptoms All Other Systems: Reviewed and Negative - Past Medical History Pertinent Past Medical History: Yes Neurological History: No Pertinent History ENT History: No Pertinent History Cardiac History: Coronary Artery Disease, Hypertension, Myocardial Infarction ( [place]) Respiratory History: No Pertinent History Endocrine Medical History: Hypothyroidism Musculoskeletal History: Degenerative Disk Disease GI Medical History: GI Bleed History: No Pertinent History Psycho-Social History: Depression Male Reproductive Disorders: No Pertinent History Other Medical History: CHRONIC BACK PAIN. CHRONIC ABDOMINAL PAIN. ANEMIA - Past Surgical History Past Surgical History: Yes Neuro Surgical History: No Pertinent History Cardiac: CABG, Cardiac Stent Respiratory: No Pertinent History Gastrointestinal: Appendectomy, Cholecystectomy, Exploratory Laparoscopy Genitourinary: No Pertinent History Musculoskeletal: Orthopedic Surgery Male Surgical History: No Pertinent History Other Surgical History: SPINAL SURGERY 2016. BILATERAL KNEE SCOPES, states CABG x 3 vessels more than 10yrs ago. Cardiac stents x 5 - Social History Smoking Status: Never smoker Exposure to second hand smoke: No Alcohol Use: None Drug Use: none Patient Lives Alone: No Significant Family History: heart disease, other - Nursing Vital Signs Nursing Vital Signs: Initial Vital Signs Temperature 97.4 F 01/26/18 01:07 Pulse Rate 90 01/26/18 01:07 Respiratory Rate 18 01/26/18 01:07 Blood Pressure 138/89 01/26/18 01:07 O2 Sat by Pulse Oximetry 100 01/26/18 01:07 Pain Scale Pain Intensity 4 - Physical Exam General Appearance: no apparent distress, alert Eye Exam: PERRL/EOMI, eyes nml inspection Ears, Nose, Throat Exam: normal ENT inspection, pharynx normal, moist mucous membranes Neck Exam: normal inspection, non-tender, supple, full range of motion Respiratory Exam: normal breath sounds, lungs clear, No respiratory distress Cardiovascular Exam: regular rate/rhythm, normal heart sounds Gastrointestinal/Abdomen Exam: soft, normal bowel sounds, tenderness (mild periumbilical tenderness), No mass Back Exam: normal inspection, normal range of motion, No CVA tenderness, No vertebral tenderness Extremity Exam: normal inspection, normal range of motion, pelvis stable Neurologic Exam: alert, oriented x 3, cooperative, history department chair II-XII nml as tested, normal mood/affect, nml cerebellar function, sensation nml, No motor deficits Skin Exam: normal color, warm, dry SpO2 Interpretation: normal (100%) SpO2: 100 Oxygen Delivery: Room Air - Course Nursing assessment & vital signs reviewed: Yes - CT Exams Abdomen/Pelvis CT Interpretation: Tele-radiologist Report (CT abdomen and pelvis: Findings consistent with inflammatory process involving the distal aspect of the stomach resulting in distal gastric obstruction.) Ordered Tests: Active Orders 24 hr Category Date Time Status IV Insertion STAT Care 01/26/18 01:24 Active ABDOMEN AND PELVIS W CONTRAST [CT] Stat Exams 01/26/18 02:41 Taken AMYLASE Stat Lab 01/26/18 01:45 Completed CBC W DIFF Stat Lab 01/26/18 01:45 Completed CMP Stat Lab 01/26/18 01:45 Completed LIPASE Stat Lab 01/26/18 01:45 Completed UA W/RFX UR CULTURE Stat Lab 01/26/18 03:00 Completed Urine Triage Profile Stat Lab 01/26/18 03:00 Completed Medication Summary Generic Name Dose Route Start Last Admin Trade Name Freq PRN Reason Stop Dose Admin Sodium Chloride 1,000 mls @ 100 mls/hr 01/26/18 05:15 Sodium Chloride 0.9% 1000 Ml IV 02/25/18 05:14 .Q10H VENUS Morphine Sulfate 4 mg 01/26/18 05:01 Morphine Sulfate 4 Mg Inj IV 01/26/18 05:02 STAT ONE Discontinued Medications Generic Name Dose Route Start Last Admin Trade Name Kassie PRN Reason Stop Dose Admin Sodium Chloride 1,000 mls @ 999 mls/hr 01/26/18 01:24 01/26/18 03:45 Sodium Chloride 0.9% 1000 Ml IV 01/26/18 02:24 Infused .Q1H1M STA Infusion Sodium Chloride Confirm 01/26/18 01:29 Sodium Chloride 0.9% 1000 Ml Administered 01/26/18 01:30 Dose 1,000 mls @ ud .ROUTE .STK-MED ONE Morphine Sulfate 4 mg 01/26/18 01:24 01/26/18 01:30 Morphine Sulfate 4 Mg Inj IV 01/26/18 01:25 4 mg STAT ONE Administration Morphine Sulfate Confirm 01/26/18 01:29 Morphine Sulfate 4 Mg Inj Administered 01/26/18 01:30 Dose 4 mg .ROUTE .STK-MED ONE Morphine Sulfate 4 mg 01/26/18 02:40 01/26/18 02:45 Morphine Sulfate 4 Mg Inj IV 01/26/18 02:41 4 mg STAT ONE Administration Morphine Sulfate Confirm 01/26/18 02:43 Morphine Sulfate 4 Mg Inj Administered 01/26/18 02:44 Dose 4 mg .ROUTE .STK-MED ONE Ondansetron HCl 4 mg 01/26/18 01:24 01/26/18 01:30 Zofran 4 Mg/2 Ml Vial IV 01/26/18 01:25 4 mg STAT ONE Administration Ondansetron HCl Confirm 01/26/18 01:29 Zofran 4 Mg/2 Ml Vial Administered 01/26/18 01:30 Dose 4 mg .ROUTE .STK-MED ONE Lab/Rad Data: Laboratory Result Diagrams 01/26/18 01:45 01/26/18 01:45 Laboratory Results 01/26/18 01/26/18 01/26/18 Range/Units 03:00 03:00 01:45 WBC (4.0-10.5) K/mm3 RBC (4.1-5.6) M/mm3 Hgb (12.5-18.0) gm/dl Hct (42-50) % MCV (78-100) fl MCH (26-32) pg MCHC (32-36) g/dl RDW (11.5-14.0) % Plt Count (150-450) K/mm3 MPV (6-9.5) fl Gran % (36.0-66.0) % Eos # (Auto) (0-0.5) Absolute Lymphs (auto) (1.0-4.6) Absolute Monos (auto) (0.0-1.3) Lymphocytes % (24.0-44.0) % Monocytes % (0.0-12.0) % Eosinophils % (0.00-5.0) % Basophils % (0.0-0.4) % Absolute Granulocytes (1.4-6.9) Basophils # (0-0.4) Sodium 137 (137-145) mmol/L Potassium 4.2 (3.5-5.1) mmol/L Chloride 108 H (98-107) mmol/L Carbon Dioxide 21 L (22-30) mmol/L Anion Gap 12.2 (5-15) MEQ/L BUN 31 H (9-20) mg/dL Creatinine 0.68 (0.66-1.25) mg/dL Estimated GFR > 60.0 ML/MIN Glucose 116 H (74-106) mg/dL Calcium 8.8 (8.4-10.2) mg/dL Total Bilirubin 0.50 (0.2-1.3) mg/dL AST 26 (17-59) U/L ALT 25 (0-50) U/L Alkaline Phosphatase 59 (38-126) U/L Serum Total Protein 5.7 L (6.3-8.2) g/dL Albumin 3.6 (3.5-5.0) g/dL Amylase 68 (30-110) U/L Lipase 70 (23-300) U/L Urine Color STRAW (YELLOW) Urine Appearance CLEAR (CLEAR) Urine pH 6.0 (5-6) Ur Specific [place] 1.016 (1.005-1.025) Urine Protein NEGATIVE (Negative) Urine Ketones NEGATIVE (NEGATIVE) Urine Blood NEGATIVE (0-5) Jose/ul Urine Nitrite NEGATIVE (NEGATIVE) Urine Bilirubin NEGATIVE (NEGATIVE) Urine Urobilinogen NEGATIVE (0-1) mg/dL Ur Leukocyte Esterase NEGATIVE (NEGATIVE) Urine WBC (Auto) NONE (0-5) /HPF Urine RBC (Auto) NONE (0-2) /HPF U Epithel Cells (Auto) NONE (FEW) /HPF Urine Bacteria (Auto) NONE SEEN (NEGATIVE) /HPF Urine Mucus (Auto) SLIGHT (NEGATIVE) /HPF Urine Culture Reflexed NO (NO) Urine Glucose NEGATIVE (NEGATIVE) mg/dL Urine Opiates Level POSITIVE (NEGATIVE) Ur Methadone NEGATIVE (NEGATIVE) Urine Barbiturates NEGATIVE (NEGATIVE) Ur Phencyclidine (PCP) NEGATIVE (NEGATIVE) Urine Amphetamine NEGATIVE (NEGATIVE) U Benzodiazepine Level NEGATIVE (NEGATIVE) Urine Cocaine NEGATIVE (NEGATIVE) Urine Marijuana (THC) NEGATIVE (NEGATIVE) 01/26/18 Range/Units 01:45 WBC 7.8 (4.0-10.5) K/mm3 RBC 3.01 L (4.1-5.6) M/mm3 Hgb 8.8 L D (12.5-18.0) gm/dl Hct 27.6 L (42-50) % MCV 91.7 (78-100) fl MCH 29.2 (26-32) pg MCHC 31.9 L (32-36) g/dl RDW 21.5 H (11.5-14.0) % Plt Count 211 (150-450) K/mm3 MPV 10.5 H (6-9.5) fl Gran % 76.4 H (36.0-66.0) % Eos # (Auto) 0.19 (0-0.5) Absolute Lymphs (auto) 0.93 L (1.0-4.6) Absolute Monos (auto) 0.69 (0.0-1.3) Lymphocytes % 12.0 L (24.0-44.0) % Monocytes % 8.9 (0.0-12.0) % Eosinophils % 2.4 (0.00-5.0) % Basophils % 0.3 (0.0-0.4) % Absolute Granulocytes 5.93 (1.4-6.9) Basophils # 0.02 (0-0.4) Sodium (137-145) mmol/L Potassium (3.5-5.1) mmol/L Chloride (98-107) mmol/L Carbon Dioxide (22-30) mmol/L Anion Gap (5-15) MEQ/L BUN (9-20) mg/dL Creatinine (0.66-1.25) mg/dL Estimated GFR ML/MIN Glucose (74-106) mg/dL Calcium (8.4-10.2) mg/dL Total Bilirubin (0.2-1.3) mg/dL AST (17-59) U/L ALT (0-50) U/L Alkaline Phosphatase (38-126) U/L Serum Total Protein (6.3-8.2) g/dL Albumin (3.5-5.0) g/dL Amylase (30-110) U/L Lipase (23-300) U/L Urine Color (YELLOW) Urine Appearance (CLEAR) Urine pH (5-6) Ur Specific [place] (1.005-1.025) Urine Protein (Negative) Urine Ketones (NEGATIVE) Urine Blood (0-5) Jose/ul Urine Nitrite (NEGATIVE) Urine Bilirubin (NEGATIVE) Urine Urobilinogen (0-1) mg/dL Ur Leukocyte Esterase (NEGATIVE) Urine WBC (Auto) (0-5) /HPF Urine RBC (Auto) (0-2) /HPF U Epithel Cells (Auto) (FEW) /HPF Urine Bacteria (Auto) (NEGATIVE) /HPF Urine Mucus (Auto) (NEGATIVE) /HPF Urine Culture Reflexed (NO) Urine Glucose (NEGATIVE) mg/dL Urine Opiates Level (NEGATIVE) Ur Methadone (NEGATIVE) Urine Barbiturates (NEGATIVE) Ur Phencyclidine (PCP) (NEGATIVE) Urine Amphetamine (NEGATIVE) U Benzodiazepine Level (NEGATIVE) Urine Cocaine (NEGATIVE) Urine Marijuana (THC) (NEGATIVE) - Progress Progress: improved Progress Note: 01/26/18 01:31 57-year-old white male with history of chronic abdominal pain, coronary artery disease, high blood pressure, myocardial infarction, hypothyroidism, degenerative disc disease patient states he has been having abdominal pain since yesterday afternoon when he received 3 units of packed red cells he states he's been having anemia and melena and had received the red cells because of this. Patient states the pain is crampy and in the periumbilical area and the low epigastric region I did review the patient's inspect report he is onXtampza with he has received December 22, 2017 he states that he has not been taking this for several months. Patient does not appear to be in severe distress he is somewhat tender with palpation the periumbilical region Will go ahead and run labs on the patient give him IV fluids I've offered the patient morphine for pain. . . 01/26/18 05:02 CT of the patient's abdomen and pelvis are obtained Impression per virtual radiology: 1. Findings consistent with inflammatory process involving the distal aspect of the excluded portion of the stomach resulting in distal gastric obstruction. Patient's CBC White blood cells 7.8 hemoglobin 8.8 hematocrit 27.6 platelets 211 Hemoglobin on January 24, 2018 prior to transfusion of 3 units packed red blood cells 6.1 Patient's chemistry sodium 137 potassium 4.2 chloride 108 bicarbonate 21 BUN 34 creatinine 0.6 glucose 116 Urinalysis within normal limits Patient's vitals are stable patient appears to be stable he does however complain of abdominal pain and has required a total of 12 mg of morphine and 1 L of normal saline. I've contacted Dr. Marisa Ralph at [facility]. Will transfer patient to [facility]. Dr. Ralph Will have the boiling house oiler at [facility] arrange for a bed and call when it is available Will transfer patient by ACLS telemetry we will run normal saline at 100 mL per hour. - Departure Time of Disposition: 05:06 Departure Disposition: Transfer ([facility] Dr. Marisa Ralph) Clinical Impression: Gastric outlet obstruction GI bleed Qualifiers: GI bleed type/associated pathology: melena Qualified Code(s): K92.1 - Melena Abdominal pain Qualifiers: Abdominal location: periumbilical Qualified Code(s): R10.33 - Periumbilical pain Condition: Fair Critical Care Time: No Referrals: GANESH MAYER [Primary Care Provider] -
[2018-01-26 01:53] LABS: BASOPHIL % 0.3 % (0.0-0.4); Basophil (Absolute #) 0.02 (0-0.4); Eosinophil % 2.4 % (0.00-5.0); Eosinophil (Absolute #) 0.19 (0-0.5); Granulocyte Absolute (ANC) 5.93 (1.4-6.9); Granulocytes % 76.4 % (36.0-66.0); Hematocrit 27.6 % (42-50); Hemoglobin 8.8 gm/dl (12.5-18.0); Lymphocyte (Absolute #) 0.93 (1.0-4.6); Mean Cell Volume 91.7 fl (78-100); Mean Corpuscular Hemoglobin 29.2 pg (26-32); Mean Corpuscular Hgb Concent. 31.9 g/dl (32-36); Mean Platelet Volume 10.5 fl (6-9.5); Monocyte (Absolute #) 0.69 (0.0-1.3); Monocytes % 8.9 % (0.0-12.0); Platelet Count 211 K/mm3 (150-450); Red Blood Count 3.01 M/mm3 (4.1-5.6); Red Cell Distribution Width 21.5 % (11.5-14.0); White Blood Count 7.8 K/mm3 (4.0-10.5)
[2018-01-26 02:05] LABS: ALBUMIN 3.6 g/dL (3.5-5.0); ALKALINE PHOSPHATASE 59 U/L (38-126); AMYLASE 68 U/L (30-110); BLOOD UREA NITROGEN 31 mg/dL (9-20); CHLORIDE 108 mmol/L (98-107); Calcium 8.8 mg/dL (8.4-10.2); Carbon Dioxide 21 mmol/L (22-30); Creatinine 1 0.68 mg/dL (0.66-1.25); Glucose 116 mg/dL (74-106); LIPASE 70 U/L (23-300); SGOT/AST 26 U/L (17-59); SGPT/ALT 25 U/L (0-50); SODIUM 137 mmol/L (137-145); Total Protein 5.7 g/dL (6.3-8.2)
[2018-01-26 02:06] LABS: Potassium 4.2 mmol/L (3.5-5.1)
[2018-01-26 02:13] LABS: ANION GAP 12.2 MEQ/L (5-15)
[2018-01-26 03:12] LABS: Appearance CLEAR (CLEAR); Bilirubin NEGATIVE (NEGATIVE); Blood NEGATIVE Ery/ul (0-5); Glucose NEGATIVE (NEGATIVE); Ketones NEGATIVE (NEGATIVE); Leukocyte Esterase NEGATIVE (NEGATIVE); Nitrite NEGATIVE (NEGATIVE); Protein,Urine Dip NEGATIVE (Negative); Specific Gravity 1.016 (1.005-1.025); Urobilinogen NEGATIVE mg/dL (0-1)
[2018-01-26 03:26] LABS: Amphetamine,Urine NEGATIVE (NEGATIVE); Barbiturate,Urine NEGATIVE (NEGATIVE); Benzodiazepine,Urine NEGATIVE (NEGATIVE); Cocaine,Urine NEGATIVE (NEGATIVE); Methadone,Urine NEGATIVE (NEGATIVE); Opiate,Urine POSITIVE (NEGATIVE); PCP,Urine NEGATIVE (NEGATIVE); THC,Urine NEGATIVE (NEGATIVE)
[2018-01-26 04:03] VITALS: BP 131/84; PULSE 88
[2018-01-26 04:39] VITALS: O2SAT 100
[2018-01-26] MEDS ORDERED: Sodium Chloride 0.9% 1000 ML 1,000 ML IV SCH (05:15)
--- NOTE | 2018-01-26 09:15 | XRAY ---
Indication: Left upper quadrant pain. Blood in stool. Multiple contiguous axial images obtained through the abdomen and pelvis using 80 cc Isovue 370 contrast only. Comparison: Noncontrast exam December 03, 2017. Lung bases again demonstrates left base dependent atelectasis. Heart is not enlarged. Stable small hiatal hernia. Again previous gastric bypass surgery. Noncontrasted stomach and bowel loops appear nonobstructed. Antral portion of the stomach now demonstrates mild circumferential wall thickening with minimal stranding favoring inflammatory process. Also new left mid abdomen small bowel to small bowel intussusception. Increasing moderate fecal debris in the ascending and transverse colon. No free fluid/air. Stable enlarged prostate gland and cholecystectomy clips. Tiny 4 mm left renal cortical cyst not seen on previous noncontrast exam. Remaining liver, pancreas, spleen, adrenal glands, kidneys, ureters, and bladder appear unremarkable. There remains mild aortoiliac calcifications. No AAA or pathologic retroperitoneal lymphadenopathy. Osseous structures again demonstrates L4-S1 fusion surgery with intact posterior spinal hardware. Also stable grade 1 L4 anterolisthesis. Impression: 1. New antral gastritis. 2. New left abdomen entero-enteral intussusception without complications. 3. Incidental small hiatal hernia, fecal stasis, and tiny left renal cyst. Comment: Preliminary interpretation was made by C. No critical discrepancy. CT DI 21.59
== END 2018-01-26 06:07 | disposition short-term general hospital (02) ==
LOC: ED 01:02
DX: K31.1 Adult hypertrophic pyloric stenosis (principal); R10.33 Periumbilical pain; K92.1 Melena; Z98.84 Bariatric surgery status; Z79.899 Other long term (current) drug therapy; I10 Essential (primary) hypertension
CPT/HCPCS: 36000; 36415; 74177; 80053; 80307; 81001; 82150; 83690; 85025; 96360; 96365; 96374; 96375; 99285; J2270; J2405

== ENCOUNTER 2018-01-29 16:07 | Emergency (ER) | payer MEDICARE ==
[2018-01-29] MEDS ORDERED: Sodium Chloride 0.9% 1000 ML 1,000 ML IV STA (16:13)
[2018-01-29 16:22] VITALS: O2SAT 99
--- NOTE | 2018-01-29 16:24 | ERPHSYRPT ---
- History of Present Illness Time Seen by Provider: 01/29/18 16:16 Historian: patient Exam Limitations: no limitations Physician History: 57-year-old white male with history of coronary artery, high blood pressure, GERD, hiatal hernia, hyperlipidemia, hypothyroidism, degenerative disc disease, chronic back and abdominal pain. Who has been having GI bleed going on for greater than 2 weeks. He was seen here 3 days ago sent to [place] to see Dr. Marisa Ralph secondary to gastric outlet obstruction occurring in the area of his gastric bypass. Patient apparently was released and no placed on Protonix he was told that he had an ulcer area of his gastric bypass causing his GI bleed. He arrives with complaint of pain in his right upper quadrant no vomiting. He states he continues with melena no change in his stools from prior visit. Past medical history includes coronary artery disease, high blood pressure, GERD , hiatal hernia, hypertension, hypothyroidism, degenerative disc, chronic back pain, chronic abdominal pain, anemia Past surgical history includes CABG, cholecystectomy, spine injury, gastric bypass. Timing/Duration: today (cold.foot he's got blood in s( medical) Activities at Onset: none Quality: cramping Abdominal Pain Onset Location: RUQ Pain Radiation: no radiation Severity of Pain-Max: moderate Severity of Pain-Current: moderate Modifying Factors: Improves With: nothing Associated Symptoms: other (melanotic stools for 2 weeks), No back, No chest pain, No diaphoresis, No diarrhea, No fever/chills, No fatigue, No headache, No heartburn, No loss of appetite, No neck pain, No rash, No shortness of breath, No syncope, No vomiting, No weakness Previous symptoms: no prior history Allergies/Adverse Reactions: No Known Drug Allergies Allergy (Verified 01/25/18 08:27) Home Medications: Levothyroxine Sodium 50 Mcg [Synthroid 50 Mcg] 150 mcg PO DAILY 07/28/11 [ History] Lisinopril 20 mg [Zestril 20 MG] 40 mg PO DAILY 03/29/16 [History] Aspirin 81 gm Chew [Baby Aspirin 81 mg Chew] 81 mg UD 01/31/17 [History] Atorvastatin Calcium 1 ea PO DAILY 12/03/17 [History] Clopidogrel Bisulfate [Clopidogrel] 75 mg PO DAILY 12/03/17 [History] PANTOPRAZOLE 40 mg Tablet [Protonix 40MG Tablet] 40 mg DAILY 12/03/17 [ History] Hx Tetanus, Diphtheria Vaccination/Date Given: Yes Hx Influenza Vaccination/Date Given: No Hx Pneumococcal Vaccination/Date Given: Yes - Review of Systems Constitutional: No Fever, No Chills Eyes: No Symptoms Ears, Nose, & Throat: No Symptoms Respiratory: No Cough, No Dyspnea Cardiac: No Chest Pain, No Edema, No Syncope Abdominal/Gastrointestinal: Abdominal Pain, Melena, No Nausea, No Vomiting, No Diarrhea, No Constipation, No Hematemesis, No Hematochezia, No Appetite Changes Genitourinary Symptoms: No Dysuria Musculoskeletal: No Back Pain, No Neck Pain Skin: No Rash Neurological: No Dizziness, No Focal Weakness, No Sensory Changes Psychological: No Symptoms Endocrine: No Symptoms All Other Systems: Reviewed and Negative - Past Medical History Pertinent Past Medical History: Yes Neurological History: No Pertinent History ENT History: No Pertinent History Cardiac History: Coronary Artery Disease, Hypertension, Myocardial Infarction ( [place]) Respiratory History: No Pertinent History Endocrine Medical History: Hypothyroidism Musculoskeletal History: Degenerative Disk Disease GI Medical History: GI Bleed History: No Pertinent History Psycho-Social History: Depression Male Reproductive Disorders: No Pertinent History Other Medical History: CHRONIC BACK PAIN. CHRONIC ABDOMINAL PAIN. ANEMIA - Past Surgical History Past Surgical History: Yes Neuro Surgical History: No Pertinent History Cardiac: CABG, Cardiac Stent Respiratory: No Pertinent History Gastrointestinal: Appendectomy, Cholecystectomy, Exploratory Laparoscopy Genitourinary: No Pertinent History Musculoskeletal: Orthopedic Surgery Male Surgical History: No Pertinent History Other Surgical History: SPINAL SURGERY 2016. BILATERAL KNEE SCOPES, states CABG x 3 vessels more than 10yrs ago. Cardiac stents x 5 - Social History Smoking Status: Never smoker Exposure to second hand smoke: No Alcohol Use: None Drug Use: none Patient Lives Alone: No Significant Family History: heart disease, other - Nursing Vital Signs Nursing Vital Signs: Initial Vital Signs Temperature 97.8 F 01/29/18 16:08 Pulse Rate 89 01/29/18 16:08 Respiratory Rate 18 01/29/18 16:08 Blood Pressure 140/87 01/29/18 16:08 O2 Sat by Pulse Oximetry 99 01/29/18 16:08 Pain Scale Pain Intensity 8 - Physical Exam General Appearance: no apparent distress, alert Eye Exam: PERRL/EOMI, eyes nml inspection Ears, Nose, Throat Exam: normal ENT inspection, pharynx normal, moist mucous membranes Neck Exam: normal inspection (he CT scan distress or), non-tender, supple, full range of motion Respiratory Exam: normal breath sounds, lungs clear, No respiratory distress Cardiovascular Exam: regular rate/rhythm, normal heart sounds, normal peripheral pulses, No murmur Gastrointestinal/Abdomen Exam: soft (he), normal bowel sounds, tenderness ( right upper quadrant tenderness) Back Exam: normal inspection, normal range of motion, No CVA tenderness, No vertebral tenderness Extremity Exam: normal inspection, normal range of motion, pelvis stable Neurologic Exam: alert, oriented x 3, cooperative, 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 nml as tested, normal mood/affect, nml cerebellar function, sensation nml, No motor deficits SpO2 Interpretation: normal Ordered Tests: Active Orders 24 hr Category Date Time Status IV Insertion STAT Care 01/29/18 16:13 Active IV Insertion-2nd Peripheral STAT Care 01/29/18 16:14 Active AMYLASE Stat Lab 01/29/18 16:20 Completed CBC W DIFF Stat Lab 01/29/18 16:20 Completed CMP Stat Lab 01/29/18 16:20 Completed LIPASE Stat Lab 01/29/18 16:20 Completed Occult Blood,Stool Other Stat Lab 01/29/18 16:20 Completed PROTIME WITH INR Stat Lab 01/29/18 16:20 Completed PTT Stat Lab 01/29/18 16:20 Completed Medication Summary Discontinued Medications Generic Name Dose Route Start Last Admin Trade Name Freq PRN Reason Stop Dose Admin Aspirin Confirm 01/29/18 16:54 Baby Aspirin 81 Mg Chew Administered 01/29/18 16:55 Dose 324 mg .ROUTE .STK-MED ONE Sodium Chloride 1,000 mls @ 999 mls/hr 01/29/18 16:13 01/29/18 16:55 Sodium Chloride 0.9% 1000 Ml IV 01/29/18 17:13 999 mls/hr .Q1H1M STA Administration Sodium Chloride Confirm 01/29/18 16:51 Sodium Chloride 0.9% 1000 Ml Administered 01/29/18 16:52 Dose 1,000 mls @ ud .ROUTE .STK-MED ONE Morphine Sulfate 4 mg 01/29/18 16:35 01/29/18 16:55 Morphine Sulfate 4 Mg Inj IV 12/09/18 16:36 4 mg STAT ONE Administration Morphine Sulfate Confirm 01/29/18 16:51 Morphine Sulfate 4 Mg Inj Administered 01/29/18 16:52 Dose 4 mg .ROUTE .STK-MED ONE Ondansetron HCl 4 mg 01/29/18 16:35 01/29/18 16:55 Zofran 4 Mg/2 Ml Vial IV 01/29/18 16:36 4 mg STAT ONE Administration Ondansetron HCl Confirm 01/29/18 16:51 Zofran 4 Mg/2 Ml Vial Administered 01/29/18 16:52 Dose 4 mg .ROUTE .STK-MED ONE Lab/Rad Data: Laboratory Result Diagrams 01/29/18 16:20 01/29/18 16:20 Laboratory Results 01/29/18 01/29/18 01/29/18 Range/Units 16:20 16:20 16:20 WBC (4.0-10.5) K/mm3 RBC (4.1-5.6) M/mm3 Hgb (12.5-18.0) gm/dl Hct (42-50) % MCV (78-100) fl MCH (26-32) pg MCHC (32-36) g/dl RDW (11.5-14.0) % Plt Count (150-450) K/mm3 MPV (6-9.5) fl Gran % (36.0-66.0) % Eos # (Auto) (0-0.5) Absolute Lymphs (auto) (1.0-4.6) Absolute Monos (auto) (0.0-1.3) Lymphocytes % (24.0-44.0) % Monocytes % (0.0-12.0) % Eosinophils % (0.00-5.0) % Basophils % (0.0-0.4) % Absolute Granulocytes (1.4-6.9) Basophils # (0-0.4) PT 12.0 (8.83-12.87) SECONDS INR 1.03 (0.8-3.0) APTT 24.4 (24.1-36.1) SECONDS Sodium (137-145) mmol/L Potassium (3.5-5.1) mmol/L Chloride (98-107) mmol/L Carbon Dioxide (22-30) mmol/L Anion Gap (5-15) MEQ/L BUN (9-20) mg/dL Creatinine (0.66-1.25) mg/dL Estimated GFR ML/MIN Glucose (74-106) mg/dL Calcium (8.4-10.2) mg/dL Total Bilirubin (0.2-1.3) mg/dL AST (17-59) U/L ALT (0-50) U/L Alkaline Phosphatase (38-126) U/L Serum Total Protein (6.3-8.2) g/dL Albumin (3.5-5.0) g/dL Amylase (30-110) U/L Lipase (23-300) U/L Stool Occult Blood POSITIVE A (Negative) ABO Group A Rh Factor POSITIVE Antibody Screen NEGATIVE (NEGATIVE) 01/29/18 01/29/18 Range/Units 16:20 16:20 WBC 3.8 L (4.0-10.5) K/mm3 RBC 3.19 L (4.1-5.6) M/mm3 Hgb 9.2 L (12.5-18.0) gm/dl Hct 28.9 L (42-50) % MCV 90.6 (78-100) fl MCH 28.8 (26-32) pg MCHC 31.8 L (32-36) g/dl RDW 18.9 H (11.5-14.0) % Plt Count 229 (150-450) K/mm3 MPV 9.9 H (6-9.5) fl Gran % 68.9 H (36.0-66.0) % Eos # (Auto) 0.05 (0-0.5) Absolute Lymphs (auto) 0.68 L (1.0-4.6) Absolute Monos (auto) 0.42 (0.0-1.3) Lymphocytes % 18.1 L (24.0-44.0) % Monocytes % 11.2 (0.0-12.0) % Eosinophils % 1.3 (0.00-5.0) % Basophils % 0.5 (0.0-0.4) % Absolute Granulocytes 2.58 (1.4-6.9) Basophils # 0.02 (0-0.4) PT (8.83-12.87) SECONDS INR (0.8-3.0) APTT (24.1-36.1) SECONDS Sodium 138 (137-145) mmol/L Potassium 3.5 (3.5-5.1) mmol/L Chloride 106 (98-107) mmol/L Carbon Dioxide 22 (22-30) mmol/L Anion Gap 13.3 (5-15) MEQ/L BUN 15 (9-20) mg/dL Creatinine 0.79 (0.66-1.25) mg/dL Estimated GFR > 60.0 ML/MIN Glucose 116 H (74-106) mg/dL Calcium 8.4 (8.4-10.2) mg/dL Total Bilirubin 0.70 (0.2-1.3) mg/dL AST 33 (17-59) U/L ALT 33 (0-50) U/L Alkaline Phosphatase 98 (38-126) U/L Serum Total Protein 6.0 L (6.3-8.2) g/dL Albumin 3.8 (3.5-5.0) g/dL Amylase 126 H (30-110) U/L Lipase 67 (23-300) U/L Stool Occult Blood (Negative) ABO Group Rh Factor Antibody Screen (NEGATIVE) - Progress Progress: improved Progress Note: 01/29/18 18:08 Patient is feeling better. Wants to go home hemoglobin is stable from last visit will discharge. Patient's vitals are stable/. . . - Departure Time of Disposition: 18:08 Departure Disposition: Home Clinical Impression: GI bleed Qualifiers: GI bleed type/associated pathology: melena Qualified Code(s): K92.1 - Melena Abdominal pain Qualifiers: Abdominal location: right upper quadrant Qualified Code(s): R10.11 - Right upper quadrant pain Condition: Fair Critical Care Time: No Referrals: GANESH MAYER [Primary Care Provider] - Additional Instructions: Return home. Continue medications as prescribed by your GI specialist and your family doctor. Return for acute distress or for severe symptoms. call your GI specialist and/or family doctor tomorrow to arrange follow-up. Sooner if problems.
[2018-01-29] MEDS ORDERED: Zofran 4 MG/2 ML VIAL IV ONE (16:35)
[2018-01-29] MEDS ORDERED: MORPHINE SULFATE 4 MG INJ IV ONE (16:35)
[2018-01-29 16:37] LABS: BASOPHIL % 0.5 % (0.0-0.4); Basophil (Absolute #) 0.02 (0-0.4); Eosinophil % 1.3 % (0.00-5.0); Eosinophil (Absolute #) 0.05 (0-0.5); Granulocyte Absolute (ANC) 2.58 (1.4-6.9); Granulocytes % 68.9 % (36.0-66.0); Hematocrit 28.9 % (42-50); Hemoglobin 9.2 gm/dl (12.5-18.0); Lymphocyte (Absolute #) 0.68 (1.0-4.6); Lymphocytes % 18.1 % (24.0-44.0); Mean Cell Volume 90.6 fl (78-100); Mean Corpuscular Hemoglobin 28.8 pg (26-32); Mean Corpuscular Hgb Concent. 31.8 g/dl (32-36); Mean Platelet Volume 9.9 fl (6-9.5); Monocyte (Absolute #) 0.42 (0.0-1.3); Monocytes % 11.2 % (0.0-12.0); Platelet Count 229 K/mm3 (150-450); Red Blood Count 3.19 M/mm3 (4.1-5.6); Red Cell Distribution Width 18.9 % (11.5-14.0); White Blood Count 3.8 K/mm3 (4.0-10.5)
[2018-01-29] MEDS ORDERED: MORPHINE SULFATE 4 MG INJ ONE (16:51)
[2018-01-29] MEDS ORDERED: Zofran 4 MG/2 ML VIAL ONE (16:51)
[2018-01-29] MEDS ORDERED: Sodium Chloride 0.9% 1000 ML 1,000 ML ONE (16:51)
[2018-01-29] MEDS ORDERED: BABY ASPIRIN 81 MG CHEW ONE (16:54)
[2018-01-29 16:57] LABS: INR 1.03 (0.8-3.0)
[2018-01-29 16:59] LABS: PTT 24.4 SECONDS (24.1-36.1)
[2018-01-29 17:01] LABS: ALBUMIN 3.8 g/dL (3.5-5.0); ALKALINE PHOSPHATASE 98 U/L (38-126); AMYLASE 126 U/L (30-110); ANION GAP 13.3 MEQ/L (5-15); BLOOD UREA NITROGEN 15 mg/dL (9-20); CHLORIDE 106 mmol/L (98-107); Calcium 8.4 mg/dL (8.4-10.2); Carbon Dioxide 22 mmol/L (22-30); Creatinine 1 0.79 mg/dL (0.66-1.25); Glucose 116 mg/dL (74-106); LIPASE 67 U/L (23-300); Potassium 3.5 mmol/L (3.5-5.1); SGOT/AST 33 U/L (17-59); SGPT/ALT 33 U/L (0-50); SODIUM 138 mmol/L (137-145)
[2018-01-29 17:26] LABS: ABO TYPING A; Antibody Screen NEGATIVE (NEGATIVE); RH TYPING POSITIVE
[2018-01-29 18:28] VITALS: BP 127/77; PULSE 70
== END 2018-01-29 18:50 | disposition home or self-care (01) ==
LOC: ED 16:07
DX: K92.1 Melena (principal); R10.11 Right upper quadrant pain; Z79.899 Other long term (current) drug therapy; Z98.84 Bariatric surgery status
CPT/HCPCS: 36000; 36415; 80053; 82150; 82272; 83690; 85025; 85610; 85730; 86850; 86900; 86901; 96374; 96375; 99284; J2270; J2405; A9270-GY

== ENCOUNTER 2018-02-02 14:10 | Emergency (ER) | payer MEDICARE ==
[2018-02-02] MEDS ORDERED: Sodium Chloride 0.9% 1000 ML 1,000 ML IV STA (14:42)
--- NOTE | 2018-02-02 14:48 | ERPHSYRPT ---
- History of Present Illness Time Seen by Provider: 02/02/18 14:38 Historian: patient Exam Limitations: no limitations Patient Subjective Stated Complaint: abdominal pain that is worse today,. states was seen at and released on tuesday, pain worse today. Triage Nursing Assessment: alert and in no distress. states increasing abdominal pain today. has dark stool but this is no different than before. pain on palpation. states its worse that before. denies nasuea or vomiting. Physician History: 57-year-old white male with history of coronary artery disease, high blood pressure, GERD, hiatal hernia, hyperlipidemia, hypothyroidism, degenerative disc disease, chronic back and abdominal pain Patient has been seen 2 times previously secondary to abdominal bleeding patient has had a history of bariatric surgery he was seen on 26 January found to have a gastric outlet obstruction and was referred to Dr. Marisa Ralph in [facility] and was transferred there he was subsequently released and was told that he had ulcerations around the site of the gastric surgery. He was told that she wanted to treat this medically and was subsequently released he presented again on 29 January with complaint of abdominal pain at that time patient was given IV fluids 8 mg of morphine and Phenergan IV Patient's labs were obtained to have patient did have a stable hemoglobin and patient requested to leave and he was released. He arrives today states he has abdominal pain again he is not vomiting he has chronic melanotic stools. Patient did have a significant GI bleed approximately 3 weeks ago. Past medical history includes coronary artery disease, high blood pressure, GERD , hiatal hernia, hyperlipidemia, hypothyroidism, degenerative disc disease, chronic back and abdominal pain Past surgical history includes CABG, cardiac stents, appendectomy, cholecystectomy, exploratory laparotomy, spinal surgery in 2016, bilateral knee scopes, CABG 3, cardiac stents 5, bariatric surgery Social history patient denies tobacco alcohol or illicit drug use Timing/Duration: day(s) (symptoms for 6 days) Activities at Onset: none Quality: cramping Abdominal Pain Onset Location: RUQ Pain Radiation: no radiation Severity of Pain-Max: moderate Severity of Pain-Current: moderate Modifying Factors: Improves With: nothing Associated Symptoms: other (melena), No back, No chest pain, No diaphoresis, No diarrhea, No fever/chills, No fatigue, No headache, No heartburn, No loss of appetite, No nausea, No neck pain, No rash, No shortness of breath, No syncope, No testicular pain, No vomiting, No weakness Allergies/Adverse Reactions: No Known Drug Allergies Allergy (Verified 01/25/18 08:27) Home Medications: Levothyroxine Sodium 50 Mcg [Synthroid 50 Mcg] 150 mcg PO DAILY 07/28/11 [ History] Lisinopril 20 mg [Zestril 20 MG] 40 mg PO DAILY 03/29/16 [History] Aspirin 81 gm Chew [Baby Aspirin 81 mg Chew] 81 mg UD 01/31/17 [History] Atorvastatin Calcium 1 ea PO DAILY 12/03/17 [History] Clopidogrel Bisulfate [Clopidogrel] 75 mg PO DAILY 12/03/17 [History] PANTOPRAZOLE 40 mg Tablet [Protonix 40MG Tablet] 40 mg DAILY 12/03/17 [ History] Hx Tetanus, Diphtheria Vaccination/Date Given: Yes Hx Influenza Vaccination/Date Given: No Hx Pneumococcal Vaccination/Date Given: Yes - Review of Systems Constitutional: No Fever, No Chills Eyes: No Symptoms Ears, Nose, & Throat: No Symptoms Respiratory: No Cough, No Dyspnea Cardiac: No Chest Pain, No Edema, No Syncope Abdominal/Gastrointestinal: Abdominal Pain, Melena, No Nausea, No Vomiting, No Diarrhea, No Constipation, No Hematemesis, No Hematochezia, No Dysphagia, No Appetite Changes Genitourinary Symptoms: No Dysuria Musculoskeletal: No Back Pain, No Neck Pain Skin: No Rash Neurological: No Dizziness, No Focal Weakness, No Sensory Changes Psychological: No Symptoms Endocrine: No Symptoms All Other Systems: Reviewed and Negative - Past Medical History Pertinent Past Medical History: Yes Neurological History: No Pertinent History ENT History: No Pertinent History Cardiac History: Coronary Artery Disease, Hypertension, Myocardial Infarction ( [place]) Respiratory History: No Pertinent History Endocrine Medical History: Hypothyroidism Musculoskeletal History: Degenerative Disk Disease GI Medical History: GI Bleed History: No Pertinent History Psycho-Social History: Depression Male Reproductive Disorders: No Pertinent History Other Medical History: CHRONIC BACK PAIN. CHRONIC ABDOMINAL PAIN. ANEMIA - Past Surgical History Past Surgical History: Yes Neuro Surgical History: No Pertinent History Cardiac: CABG, Cardiac Stent Respiratory: No Pertinent History Gastrointestinal: Appendectomy, Cholecystectomy, Exploratory Laparoscopy Genitourinary: No Pertinent History Musculoskeletal: Orthopedic Surgery Male Surgical History: No Pertinent History Other Surgical History: SPINAL SURGERY 2016. BILATERAL KNEE SCOPES, states CABG x 3 vessels more than 10yrs ago. Cardiac stents x 5 - Social History Smoking Status: Never smoker Exposure to second hand smoke: No Alcohol Use: None Drug Use: none Patient Lives Alone: No Significant Family History: heart disease, other - Nursing Vital Signs Nursing Vital Signs: Initial Vital Signs Temperature 98.2 F 02/02/18 14:32 Pulse Rate 84 02/02/18 14:32 Respiratory Rate 18 02/02/18 14:32 Blood Pressure 148/84 02/02/18 14:32 O2 Sat by Pulse Oximetry 100 02/02/18 14:32 Pain Scale Pain Intensity 2 - Physical Exam General Appearance: no apparent distress, alert Eye Exam: PERRL/EOMI, eyes nml inspection Ears, Nose, Throat Exam: normal ENT inspection, pharynx normal, moist mucous membranes Neck Exam: normal inspection, non-tender, supple, full range of motion Respiratory Exam: normal breath sounds, lungs clear, No respiratory distress Cardiovascular Exam: regular rate/rhythm, normal heart sounds, normal peripheral pulses, capillary refill <2 sec, No murmur Gastrointestinal/Abdomen Exam: soft, normal bowel sounds, tenderness (Right upper quadrant tenderness with palpation), No distention, No mass, No guarding, No ecchymosis, No rebound, No hernia, No hepatomegaly, No organomegaly, No splenomegaly Back Exam: normal inspection, normal range of motion, No CVA tenderness, No vertebral tenderness Extremity Exam: normal inspection, normal range of motion, pelvis stable Neurologic Exam: alert, oriented x 3, cooperative, marketing operations 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 Left abdomen air distended bowel loops corresponding to recent CT proven intussuseption. No new abdominal findings. 2. Stable nonacute one view chest.) Ordered Tests: Active Orders 24 hr Category Date Time Status Accucheck STAT Care 02/02/18 17:21 Active IV Insertion STAT Care 02/02/18 14:42 Active OBSTR/ACUTE ABDOMEN SERIES Stat Exams 02/02/18 15:57 Completed AMYLASE Stat Lab 02/02/18 15:15 Completed CBC W DIFF Stat Lab 02/02/18 15:15 Completed CMP Stat Lab 02/02/18 15:15 Completed LIPASE Stat Lab 02/02/18 15:15 Completed Medication Summary Discontinued Medications Generic Name Dose Route Start Last Admin Trade Name Kassie PRN Reason Stop Dose Admin Sodium Chloride 1,000 mls @ 999 mls/hr 02/02/18 14:42 02/02/18 15:32 Sodium Chloride 0.9% 1000 Ml IV 02/02/18 15:42 999 mls/hr .Q1H1M STA Administration Sodium Chloride Confirm 02/02/18 15:32 Sodium Chloride 0.9% 1000 Ml Administered 02/02/18 15:33 Dose 1,000 mls @ ud .ROUTE .STK-MED ONE Morphine Sulfate 4 mg 02/02/18 15:57 02/02/18 16:10 Morphine Sulfate 4 Mg Inj IV 02/02/18 15:58 4 mg STAT ONE Administration Morphine Sulfate Confirm 02/02/18 16:07 Morphine Sulfate 4 Mg Inj Administered 02/02/18 16:08 Dose 4 mg .ROUTE .STK-MED ONE Morphine Sulfate 4 mg 02/02/18 17:08 02/02/18 17:18 Morphine Sulfate 4 Mg Inj IV 02/02/18 17:09 4 mg STAT ONE Administration Morphine Sulfate Confirm 02/02/18 17:16 Morphine Sulfate 4 Mg Inj Administered 02/02/18 17:17 Dose 4 mg .ROUTE .STK-MED ONE Promethazine HCl 12.5 mg 02/02/18 15:57 02/02/18 16:10 Phenergan 25 Mg Inj IV 02/02/18 15:58 12.5 mg STAT ONE Administration Promethazine HCl Confirm 02/02/18 16:07 Phenergan 25 Mg Inj Administered 02/02/18 16:08 Dose 25 mg .ROUTE .STK-MED ONE Lab/Rad Data: Laboratory Result Diagrams 02/02/18 15:15 02/02/18 15:15 Laboratory Results 02/02/18 02/02/18 Range/Units 15:15 15:15 WBC 4.5 (4.0-10.5) K/mm3 RBC 3.65 L (4.1-5.6) M/mm3 Hgb 10.0 L (12.5-18.0) gm/dl Hct 33.0 L (42-50) % MCV 90.4 (78-100) fl MCH 27.3 (26-32) pg MCHC 30.3 L (32-36) g/dl RDW 17.0 H (11.5-14.0) % Plt Count 334 (150-450) K/mm3 MPV 10.0 H (6-9.5) fl Gran % 65.4 (36.0-66.0) % Eos # (Auto) 0.10 (0-0.5) Absolute Lymphs (auto) 0.94 L (1.0-4.6) Absolute Monos (auto) 0.48 (0.0-1.3) Lymphocytes % 21.0 L (24.0-44.0) % Monocytes % 10.7 (0.0-12.0) % Eosinophils % 2.2 (0.00-5.0) % Basophils % 0.7 (0.0-0.4) % Absolute Granulocytes 2.93 (1.4-6.9) Basophils # 0.03 (0-0.4) Sodium 139 (137-145) mmol/L Potassium 4.7 (3.5-5.1) mmol/L Chloride 108 H (98-107) mmol/L Carbon Dioxide 22 (22-30) mmol/L Anion Gap 13.9 (5-15) MEQ/L BUN 18 (9-20) mg/dL Creatinine 0.84 (0.66-1.25) mg/dL Estimated GFR > 60.0 ML/MIN Glucose 64 L (74-106) mg/dL Calcium 9.1 (8.4-10.2) mg/dL Total Bilirubin 0.60 (0.2-1.3) mg/dL AST 30 (17-59) U/L ALT 24 (0-50) U/L Alkaline Phosphatase 68 (38-126) U/L Serum Total Protein 6.6 (6.3-8.2) g/dL Albumin 4.3 (3.5-5.0) g/dL Amylase 96 (30-110) U/L Lipase 60 (23-300) U/L - Progress Progress: improved Progress Note: 02/02/18 14:50 This is a 57-year-old white male with history of coronary artery disease, high blood pressure, GERD, hiatal hernia, hyperlipidemia, hypothyroidism, degenerative disc disease, chronic back and abdominal pain patient had had a GI bleed approximately 3 weeks ago he presented to this emergency room on January 26, 2018 he was noted to have a gastric outlet obstruction, he was transferred to [facility] where he saw Dr. Marisa Ralph she found the patient had ulcers around his epigastric surgery and she has decided to try to treat the patient's with medicines he was subsequently released. He presented to this emergency room on January 29, 2018 with complaint of abdominal pain located in the right upper and the left lower abdominal quadrant. Patient was given IV fluids labs which included CBC CMP amylase lipase were obtained. Patient was given 8 mg of morphine and Phenergan 12 mg IV. Patient sent felt markedly better and decided to go home and requested discharge. Patient returns now stating that he's had abdominal pain since 26 January and he is worried "about internal bleeding". Patient does not appear to be in acute distress he does have some mild tenderness with palpation in the right upper quadrant. Will go ahead and give patient IV normal saline go ahead and check patient's labs including amylase lipase CBC CMP. today the patient's labs are stable. CBC white blood cell 4.5 hemoglobin 10.0 hematocrit 33.0 red blood cell 3.65 platelets 334 chemistry sodium 139 potassium 4.7 chloride 108 bicarbonat 18 creatine 0,84 glucose 64. Accu-Chek was checked and found to be 84 acute abdominal series impression: 1. Left abdomen air distended bowel loops corresponding to recent CT proven intusseption. No new abdominal findings. 2. Stable nonacute one view chest. 02/02/18 17:28 I've contacted [facility] nurse director of online education for Dr. Getachew Isaacs, covering for Dr. Marisa Ralph,(the patient's surgeon). I have explained the patient's case to her. Will go ahead and release patient place patient on plenty of fluids , clear fluids only if abdominal pain. Patient to follow-up with Dr. Ralph tomorrow Dr. Ralph's office or Dr. Isaacs' s office will contact the patient tomorrow. Patient is to continue his current medications. - Departure Time of Disposition: 17:33 Departure Disposition: Home Clinical Impression: History of bariatric surgery Abdominal pain Qualifiers: Abdominal location: right upper quadrant Qualified Code(s): R10.11 - Right upper quadrant pain Gastric pouch ulcer Qualifiers: Gastric ulcer chronicity: chronic Qualified Code(s): K25.7 - Chronic gastric ulcer without hemorrhage or perforation Condition: Fair Critical Care Time: No Referrals: GANESH MAYER [Primary Care Provider] - Additional Instructions: Return home. Plenty of fluids clear fluids only 24-48 hours if abdominal pain. Medications as prescribed by your GI doctor or family DrGianna. Follow-up with your GI doctor. Return for acute distress or for severe symptoms.
[2018-02-02 15:24] LABS: BASOPHIL % 0.7 % (0.0-0.4); Basophil (Absolute #) 0.03 (0-0.4); Eosinophil % 2.2 % (0.00-5.0); Granulocyte Absolute (ANC) 2.93 (1.4-6.9); Granulocytes % 65.4 % (36.0-66.0); Lymphocyte (Absolute #) 0.94 (1.0-4.6); Mean Cell Volume 90.4 fl (78-100); Mean Corpuscular Hgb Concent. 30.3 g/dl (32-36); Monocyte (Absolute #) 0.48 (0.0-1.3); Monocytes % 10.7 % (0.0-12.0); Platelet Count 334 K/mm3 (150-450); Red Blood Count 3.65 M/mm3 (4.1-5.6); White Blood Count 4.5 K/mm3 (4.0-10.5)
[2018-02-02 15:27] LABS: Mean Corpuscular Hemoglobin 27.3 pg (26-32)
[2018-02-02] MEDS ORDERED: Sodium Chloride 0.9% 1000 ML 1,000 ML ONE (15:32)
[2018-02-02 15:42] LABS: ALBUMIN 4.3 g/dL (3.5-5.0); ALKALINE PHOSPHATASE 68 U/L (38-126); AMYLASE 96 U/L (30-110); ANION GAP 13.9 MEQ/L (5-15); BLOOD UREA NITROGEN 18 mg/dL (9-20); CHLORIDE 108 mmol/L (98-107); Calcium 9.1 mg/dL (8.4-10.2); Carbon Dioxide 22 mmol/L (22-30); Creatinine 1 0.84 mg/dL (0.66-1.25); Glucose 64 mg/dL (74-106); LIPASE 60 U/L (23-300); Potassium 4.7 mmol/L (3.5-5.1); SGOT/AST 30 U/L (17-59); SGPT/ALT 24 U/L (0-50); SODIUM 139 mmol/L (137-145); Total Protein 6.6 g/dL (6.3-8.2)
[2018-02-02] MEDS ORDERED: Phenergan 25 MG INJ IV ONE (15:57)
[2018-02-02] MEDS ORDERED: MORPHINE SULFATE 4 MG INJ IV ONE ×2 (15:57→17:08)
[2018-02-02 16:05] VITALS: BP 150/95; PULSE 79
[2018-02-02] MEDS ORDERED: MORPHINE SULFATE 4 MG INJ ONE ×2 (16:07→17:16)
[2018-02-02] MEDS ORDERED: Phenergan 25 MG INJ ONE (16:07)
--- NOTE | 2018-02-02 16:53 | XRAY ---
Indication: Abdomen pain. Bleeding ulcers. Reported gastritis and intussusception on recent CT January 26, 2018. Comparison: Portable chest January 31, 2017. 2 views of the abdomen demonstrates mild distended bowel loops in the left abdomen with fluid leveling corresponding to CT proven intussusception. Normal colonic fecal debris and bowel gas. No free air. Previous gastric bypass surgery and cholecystectomy. Solid organs unremarkable. Osseous structures intact with previous lower lumbar fusion surgery. Single PA chest again demonstrates normal heart and lungs with previous CABG surgery. Bony thorax intact again with mild degenerative changes. Impression: 1. Left abdomen air distended bowel loops corresponding to recent CT proven intussusception. No new abdomen findings. 2. Stable nonacute one view chest.
[2018-02-02 16:57] VITALS: O2SAT 100
== END 2018-02-02 17:48 | disposition home or self-care (01) ==
LOC: ED 14:10
DX: R10.11 Right upper quadrant pain (principal); K25.9 Gastric ulcer, unspecified as acute or chronic, without hemorrhage or perforation; Z98.84 Bariatric surgery status; Z79.82 Long term (current) use of aspirin; Z79.899 Other long term (current) drug therapy; Z95.1 Presence of aortocoronary bypass graft; Z86.79 Personal history of other diseases of the circulatory system
CPT/HCPCS: 36000; 36415; 74022; 80053; 82150; 82962; 83690; 85025; 96360; 96374; 96375; 96376; 99284; J2270; J2550

== ENCOUNTER 2018-02-21 19:57 | Emergency (ER) | payer MEDICARE ==
[2018-02-21 20:13] VITALS: O2SAT 99
[2018-02-21] MEDS ORDERED: Sodium Chloride 0.9% 1000 ML 1,000 ML IV STA ×2 (20:51→21:32)
[2018-02-21] MEDS ORDERED: PROTONIX 40 MG IV IV ONE ×2 (20:51→21:10)
[2018-02-21] MEDS ORDERED: Carafate 1 GM PO ONE ×2 (20:51→21:10)
[2018-02-21] MEDS ORDERED: Pepcid 20 MG VIAL IV ONE ×2 (20:51→21:10)
[2018-02-21] MEDS ORDERED: GI COCKTAIL 45 ML (Maalox/Lidocaine) PO ONE (20:54)
[2018-02-21] MEDS ORDERED: Sodium Chloride 0.9% 1000 ML 1,000 ML ONE (21:11)
[2018-02-21] MEDS ORDERED: MAALOX ES 30 ML UNIT DOSE ONE (21:11)
[2018-02-21] MEDS ORDERED: XYLOCAINE HCl Viscous ONE (21:11)
[2018-02-21 21:16] LABS: BASOPHIL % 0.5 % (0.0-0.4); Basophil (Absolute #) 0.03 (0-0.4); Eosinophil % 2.7 % (0.00-5.0); Eosinophil (Absolute #) 0.17 (0-0.5); Granulocyte Absolute (ANC) 4.61 (1.4-6.9); Granulocytes % 72.4 % (36.0-66.0); Hematocrit 24.6 % (42-50); Hemoglobin 7.3 gm/dl (12.5-18.0); Lymphocyte (Absolute #) 0.65 (1.0-4.6); Lymphocytes % 10.2 % (24.0-44.0); Mean Cell Volume 82.3 fl (78-100); Mean Corpuscular Hemoglobin 24.4 pg (26-32); Mean Corpuscular Hgb Concent. 29.7 g/dl (32-36); Mean Platelet Volume 9.3 fl (6-9.5); Monocytes % 14.2 % (0.0-12.0); Platelet Count 209 K/mm3 (150-450); Red Blood Count 2.99 M/mm3 (4.1-5.6); Red Cell Distribution Width 19.2 % (11.5-14.0); White Blood Count 6.4 K/mm3 (4.0-10.5)
[2018-02-21 21:32] LABS: ALBUMIN 4.1 g/dL (3.5-5.0); ALKALINE PHOSPHATASE 71 U/L (38-126); AMYLASE 51 U/L (30-110); ANION GAP 12.7 MEQ/L (5-15); BLOOD UREA NITROGEN 17 mg/dL (9-20); CHLORIDE 106 mmol/L (98-107); Calcium 8.9 mg/dL (8.4-10.2); Carbon Dioxide 26 mmol/L (22-30); Creatinine 1 0.88 mg/dL (0.66-1.25); Glucose 104 mg/dL (74-106); LIPASE 53 U/L (23-300); Potassium 4.2 mmol/L (3.5-5.1); SGOT/AST 25 U/L (17-59); SGPT/ALT 24 U/L (0-50); SODIUM 141 mmol/L (137-145); Total Protein 6.2 g/dL (6.3-8.2)
[2018-02-21] MEDS ORDERED: Nitrostat 0.4 MG (ED) SL ONE (21:32)
[2018-02-21 22:11] LABS: Appearance CLEAR (CLEAR); Bilirubin NEGATIVE (NEGATIVE); Blood NEGATIVE Ery/ul (0-5); Glucose 50 mg/dL (NEGATIVE); Ketones NEGATIVE (NEGATIVE); Leukocyte Esterase NEGATIVE (NEGATIVE); Nitrite NEGATIVE (NEGATIVE); Protein,Urine Dip NEGATIVE (Negative); Specific Gravity 1.023 (1.005-1.025); Urobilinogen 4 mg/dL (0-1)
[2018-02-21 22:15] LABS: Amphetamine,Urine NEGATIVE (NEGATIVE); Barbiturate,Urine NEGATIVE (NEGATIVE); Benzodiazepine,Urine POSITIVE (NEGATIVE); Cocaine,Urine NEGATIVE (NEGATIVE); Methadone,Urine NEGATIVE (NEGATIVE); Opiate,Urine NEGATIVE (NEGATIVE); PCP,Urine NEGATIVE (NEGATIVE); THC,Urine NEGATIVE (NEGATIVE)
--- NOTE | 2018-02-21 22:24 | ERPHSYRPT ---
- History of Present Illness Historian: patient Exam Limitations: no limitations Patient Subjective Stated Complaint: temitope states he is having severe abdominal pain, states he [facility] and was given shot in his arm abnd told he was constipated and to t wesley miralax. temitope states he has been taking since last nite and still no bowel movement but he doesnt think thats whats wrong also has recent hx of ulcers Triage Nursing Assessment: pt alert and orietnedx3, able to ambualte by self, skin warm dry and intact, abdomen round , tender to palpation all 4 quadrants. , bowel sounds present x4 hyperactive. Physician History: Pt is a 57 y/o male with a h/o PUD, on Protonix BID. Pt states, he got only 30 tabs from the pharmacy and run out of medication. He has severe abdominal pain , that is not localized. Pt states, had 4 BMs yesterday, but his pain did not improve. Pt denies N/V. No melena or hematochezia. Timing/Duration: day(s) Activities at Onset: none Quality: aching, cramping Abdominal Pain Onset Location: generalized abdomen Pain Radiation: no radiation Severity of Pain-Max: severe Severity of Pain-Current: severe Modifying Factors: Improves With: nothing Allergies/Adverse Reactions: No Known Drug Allergies Allergy (Verified 01/25/18 08:27) Home Medications: Levothyroxine Sodium 50 Mcg [Synthroid 50 Mcg] 150 mcg PO DAILY 07/28/11 [ History] Lisinopril 20 mg [Zestril 20 MG] 40 mg PO DAILY 03/29/16 [History] Aspirin 81 gm Chew [Baby Aspirin 81 mg Chew] 81 mg UD 01/31/17 [History] Atorvastatin Calcium 1 ea PO DAILY 12/03/17 [History] Clopidogrel Bisulfate [Clopidogrel] 75 mg PO DAILY 12/03/17 [History] PANTOPRAZOLE 40 mg Tablet [Protonix 40MG Tablet] 40 mg DAILY 12/03/17 [ History] Hx Tetanus, Diphtheria Vaccination/Date Given: Yes Hx Influenza Vaccination/Date Given: No Hx Pneumococcal Vaccination/Date Given: Yes Immunizations Up to Date: Yes - Review of Systems Constitutional: No Fever, No Chills Eyes: No Symptoms Ears, Nose, & Throat: No Symptoms Respiratory: No Cough, No Dyspnea Cardiac: No Chest Pain, No Edema, No Syncope Abdominal/Gastrointestinal: Abdominal Pain Genitourinary Symptoms: No Dysuria Musculoskeletal: No Back Pain, No Neck Pain Skin: No Rash Neurological: No Dizziness, No Focal Weakness, No Sensory Changes Psychological: No Symptoms Endocrine: No Symptoms - Past Medical History Pertinent Past Medical History: Yes Neurological History: No Pertinent History ENT History: No Pertinent History Cardiac History: Coronary Artery Disease, Hypertension, Myocardial Infarction ( [place]) Respiratory History: No Pertinent History Endocrine Medical History: Hypothyroidism Musculoskeletal History: Degenerative Disk Disease GI Medical History: GI Bleed History: No Pertinent History Psycho-Social History: Depression Male Reproductive Disorders: No Pertinent History Other Medical History: CHRONIC BACK PAIN. CHRONIC ABDOMINAL PAIN. ANEMIA - Past Surgical History Past Surgical History: Yes Neuro Surgical History: No Pertinent History Cardiac: CABG, Cardiac Stent Respiratory: No Pertinent History Gastrointestinal: Appendectomy, Cholecystectomy, Exploratory Laparoscopy Genitourinary: No Pertinent History Musculoskeletal: Orthopedic Surgery Male Surgical History: No Pertinent History Other Surgical History: SPINAL SURGERY 2016. BILATERAL KNEE SCOPES, states CABG x 3 vessels more than 10yrs ago. Cardiac stents x 5 - Social History Smoking Status: Never smoker Exposure to second hand smoke: No Alcohol Use: None Drug Use: none Patient Lives Alone: No Significant Family History: heart disease, other - Nursing Vital Signs Nursing Vital Signs: Initial Vital Signs Temperature 97.7 F 02/21/18 19:58 Pulse Rate 88 02/21/18 19:58 Respiratory Rate 20 02/21/18 19:58 Blood Pressure 169/111 02/21/18 19:58 O2 Sat by Pulse Oximetry 99 02/21/18 19:58 Pain Scale Pain Intensity 9 - Physical Exam General Appearance: moderate distress Eye Exam: PERRL/EOMI, eyes nml inspection Ears, Nose, Throat Exam: normal ENT inspection, pharynx normal, moist mucous membranes Neck Exam: normal inspection, non-tender, supple, full range of motion Respiratory Exam: normal breath sounds, lungs clear, No respiratory distress Cardiovascular Exam: regular rate/rhythm, normal heart sounds Gastrointestinal/Abdomen Exam: tenderness, distention SpO2: 99 Oxygen Delivery: Room Air - Course Nursing assessment & vital signs reviewed: Yes EKG Interpreted by Me: Non-specific ST Changes Ordered Tests: Active Orders 24 hr Category Date Time Status Event Marketing Manager STAT Care 02/21/18 21:32 Active IV Insertion STAT Care 02/21/18 21:32 Active KUB Stat Exams 02/21/18 20:53 Taken AMYLASE Stat Lab 02/21/18 21:00 Completed CBC W DIFF Stat Lab 02/21/18 21:00 Completed CMP Stat Lab 02/21/18 21:00 Completed LIPASE Stat Lab 02/21/18 21:00 Completed TROPONIN Q3H Lab 02/21/18 21:45 Ordered TROPONIN Q3H Lab 02/22/18 00:45 Ordered TROPONIN Q3H Lab 02/22/18 03:45 Ordered TROPONIN Q3H Lab 02/22/18 06:45 Ordered TROPONIN Q3H Lab 02/22/18 09:45 Ordered UA W/RFX UR CULTURE Stat Lab 02/21/18 21:45 Completed Urine Triage Profile Stat Lab 02/21/18 21:45 Completed Medication Summary Generic Name Dose Route Start Last Admin Trade Name Freq PRN Reason Stop Dose Admin Sodium Chloride 1,000 mls @ 999 mls/hr 02/21/18 21:32 02/21/18 21:42 Sodium Chloride 0.9% 1000 Ml IV 02/21/18 22:32 Not Given .Q1H1M STA Discontinued Medications Generic Name Dose Route Start Last Admin Trade Name Freq PRN Reason Stop Dose Admin Al Hydrox/Mg Hydrox/Simethicone Confirm 02/21/18 21:11 Maalox Es 30 Ml Unit Dose Administered 02/21/18 21:12 Dose 30 ml .ROUTE .STK-MED ONE Famotidine 20 mg 02/21/18 20:51 02/21/18 21:20 Pepcid 20 Mg Vial IV 02/21/18 20:52 20 mg STAT ONE Administration Famotidine Confirm 02/21/18 21:10 Pepcid 20 Mg Vial Administered 02/21/18 21:11 Dose 20 mg IV .STK-MED ONE Sodium Chloride 1,000 mls @ 999 mls/hr 02/21/18 20:51 02/21/18 21:18 Sodium Chloride 0.9% 1000 Ml IV 02/21/18 21:51 999 mls/hr .Q1H1M STA Administration Sodium Chloride Confirm 02/21/18 21:11 Sodium Chloride 0.9% 1000 Ml Administered 02/21/18 21:12 Dose 1,000 mls @ ud .ROUTE .STK-MED ONE Lidocaine HCl Confirm 02/21/18 21:11 Xylocaine Hcl Viscous * Administered 02/21/18 21:12 Dose 15 ml .ROUTE .STK-MED ONE Magnesium Hydroxide 45 ml 02/21/18 20:54 02/21/18 21:23 Gi Cocktail 45 Ml (Maalox/Lidocaine) PO 02/21/18 20:55 45 ml STAT ONE Administration Nitroglycerin 0.4 mg 02/21/18 21:32 02/21/18 21:42 Nitrostat 0.4 Mg (Ed) SL 02/21/18 21:33 Not Given STAT ONE Pantoprazole Sodium 40 mg 02/21/18 20:51 02/21/18 21:22 Protonix 40 Mg Iv IV 02/21/18 20:52 40 mg STAT ONE Administration Pantoprazole Sodium Confirm 02/21/18 21:10 Protonix 40 Mg Iv Administered 02/21/18 21:11 Dose 40 mg IV .STK-MED ONE Sucralfate 1 g 02/21/18 20:51 02/21/18 21:17 Carafate 1 Gm PO 02/21/18 20:52 1 g STAT ONE Administration Sucralfate Confirm 02/21/18 21:10 Carafate 1 Gm Administered 02/21/18 21:11 Dose 1 g PO .STK-MED ONE Lab/Rad Data: Laboratory Result Diagrams 02/21/18 21:00 02/21/18 21:00 Laboratory Results 02/21/18 02/21/18 02/21/18 Range/Units 21:45 21:45 21:00 WBC (4.0-10.5) K/mm3 RBC (4.1-5.6) M/mm3 Hgb (12.5-18.0) gm/dl Hct (42-50) % MCV (78-100) fl MCH (26-32) pg MCHC (32-36) g/dl RDW (11.5-14.0) % Plt Count (150-450) K/mm3 MPV (6-9.5) fl Gran % (36.0-66.0) % Eos # (Auto) (0-0.5) Absolute Lymphs (auto) (1.0-4.6) Absolute Monos (auto) (0.0-1.3) Lymphocytes % (24.0-44.0) % Monocytes % (0.0-12.0) % Eosinophils % (0.00-5.0) % Basophils % (0.0-0.4) % Absolute Granulocytes (1.4-6.9) Basophils # (0-0.4) Sodium 141 (137-145) mmol/L Potassium 4.2 (3.5-5.1) mmol/L Chloride 106 (98-107) mmol/L Carbon Dioxide 26 (22-30) mmol/L Anion Gap 12.7 (5-15) MEQ/L BUN 17 (9-20) mg/dL Creatinine 0.88 (0.66-1.25) mg/dL Estimated GFR > 60.0 ML/MIN Glucose 104 (74-106) mg/dL Calcium 8.9 (8.4-10.2) mg/dL Total Bilirubin 0.50 (0.2-1.3) mg/dL AST 25 (17-59) U/L ALT 24 (0-50) U/L Alkaline Phosphatase 71 (38-126) U/L Serum Total Protein 6.2 L (6.3-8.2) g/dL Albumin 4.1 (3.5-5.0) g/dL Amylase 51 (30-110) U/L Lipase 53 (23-300) U/L Urine Color YELLOW (YELLOW) Urine Appearance CLEAR (CLEAR) Urine pH 5.0 (5-6) Ur Specific [place] 1.023 (1.005-1.025) Urine Protein NEGATIVE (Negative) Urine Ketones NEGATIVE (NEGATIVE) Urine Blood NEGATIVE (0-5) Jose/ul Urine Nitrite NEGATIVE (NEGATIVE) Urine Bilirubin NEGATIVE (NEGATIVE) Urine Urobilinogen 4 (0-1) mg/dL Ur Leukocyte Esterase NEGATIVE (NEGATIVE) Urine WBC (Auto) NONE (0-5) /HPF Urine RBC (Auto) 3-5 (0-2) /HPF U Hyaline Cast (Auto) 0-2 (0-2) /LPF U Epithel Cells (Auto) NONE (FEW) /HPF Urine Bacteria (Auto) NONE (NEGATIVE) /HPF Urine Mucus (Auto) SLIGHT (NEGATIVE) /HPF Urine Culture Reflexed NO (NO) Urine Glucose 50 (NEGATIVE) mg/dL Urine Opiates Level NEGATIVE (NEGATIVE) Ur Methadone NEGATIVE (NEGATIVE) Urine Barbiturates NEGATIVE (NEGATIVE) Ur Phencyclidine (PCP) NEGATIVE (NEGATIVE) Urine Amphetamine NEGATIVE (NEGATIVE) U Benzodiazepine Level POSITIVE (NEGATIVE) Urine Cocaine NEGATIVE (NEGATIVE) Urine Marijuana (THC) NEGATIVE (NEGATIVE) 02/21/18 Range/Units 21:00 WBC 6.4 (4.0-10.5) K/mm3 RBC 2.99 L (4.1-5.6) M/mm3 Hgb 7.3 L (12.5-18.0) gm/dl Hct 24.6 L (42-50) % MCV 82.3 (78-100) fl MCH 24.4 L (26-32) pg MCHC 29.7 L (32-36) g/dl RDW 19.2 H (11.5-14.0) % Plt Count 209 (150-450) K/mm3 MPV 9.3 (6-9.5) fl Gran % 72.4 H (36.0-66.0) % Eos # (Auto) 0.17 (0-0.5) Absolute Lymphs (auto) 0.65 L (1.0-4.6) Absolute Monos (auto) 0.90 (0.0-1.3) Lymphocytes % 10.2 L (24.0-44.0) % Monocytes % 14.2 H (0.0-12.0) % Eosinophils % 2.7 (0.00-5.0) % Basophils % 0.5 (0.0-0.4) % Absolute Granulocytes 4.61 (1.4-6.9) Basophils # 0.03 (0-0.4) Sodium (137-145) mmol/L Potassium (3.5-5.1) mmol/L Chloride (98-107) mmol/L Carbon Dioxide (22-30) mmol/L Anion Gap (5-15) MEQ/L BUN (9-20) mg/dL Creatinine (0.66-1.25) mg/dL Estimated GFR ML/MIN Glucose (74-106) mg/dL Calcium (8.4-10.2) mg/dL Total Bilirubin (0.2-1.3) mg/dL AST (17-59) U/L ALT (0-50) U/L Alkaline Phosphatase (38-126) U/L Serum Total Protein (6.3-8.2) g/dL Albumin (3.5-5.0) g/dL Amylase (30-110) U/L Lipase (23-300) U/L Urine Color (YELLOW) Urine Appearance (CLEAR) Urine pH (5-6) Ur Specific [place] (1.005-1.025) Urine Protein (Negative) Urine Ketones (NEGATIVE) Urine Blood (0-5) Jose/ul Urine Nitrite (NEGATIVE) Urine Bilirubin (NEGATIVE) Urine Urobilinogen (0-1) mg/dL Ur Leukocyte Esterase (NEGATIVE) Urine WBC (Auto) (0-5) /HPF Urine RBC (Auto) (0-2) /HPF U Hyaline Cast (Auto) (0-2) /LPF U Epithel Cells (Auto) (FEW) /HPF Urine Bacteria (Auto) (NEGATIVE) /HPF Urine Mucus (Auto) (NEGATIVE) /HPF Urine Culture Reflexed (NO) Urine Glucose (NEGATIVE) mg/dL Urine Opiates Level (NEGATIVE) Ur Methadone (NEGATIVE) Urine Barbiturates (NEGATIVE) Ur Phencyclidine (PCP) (NEGATIVE) Urine Amphetamine (NEGATIVE) U Benzodiazepine Level (NEGATIVE) Urine Cocaine (NEGATIVE) Urine Marijuana (THC) (NEGATIVE) - Progress Progress: unchanged Will see patient in: other (Pt is transfered to regional ED. Dr Laurent is accepting) - Departure Time of Disposition: 22:30 Departure Disposition: Transfer Clinical Impression: GI bleed Condition: Fair Critical Care Time: No Referrals: GANESH MAYER [Primary Care Provider] -
[2018-02-21 22:33] VITALS: BP 140/106; PULSE 86
--- NOTE | 2018-02-22 08:45 | XRAY ---
Indication: Abdominal pain. Comparison: February 02, 2018. KUB again demonstrates mild air distended small and large bowel loops with stable epigastric postsurgical changes. Solid organs obscured due to overlying bowel gas. No free air. Osseous structures intact again with previous lower lumbar fusion surgery. Impression: Stable nonspecific air distended bowel loops and postsurgical changes. CT may yield further information if there remains further clinical concern.
== END 2018-02-21 23:41 | disposition short-term general hospital (02) ==
LOC: ED 19:57
DX: K92.2 Gastrointestinal hemorrhage, unspecified (principal); R10.84 Generalized abdominal pain; Z79.899 Other long term (current) drug therapy; I10 Essential (primary) hypertension; Z79.82 Long term (current) use of aspirin; Z87.11 Personal history of peptic ulcer disease
CPT/HCPCS: 36000; 36415; 74018; 80053; 80307; 81001; 82150; 83690; 84484; 85025; 93041; 96360; 96374; 96375; 99285; A9270-GY

== ENCOUNTER 2018-03-26 16:56 | Emergency (ER) | payer MEDICARE ==
[2018-03-26 17:27] LABS: BASOPHIL % 0.4 % (0.0-0.4); Basophil (Absolute #) 0.03 (0-0.4); Eosinophil % 0.4 % (0.00-5.0); Eosinophil (Absolute #) 0.03 (0-0.5); Granulocyte Absolute (ANC) 7.14 (1.4-6.9); Granulocytes % 85.5 % (36.0-66.0); Hematocrit 38.1 % (42-50); Hemoglobin 12.1 gm/dl (12.5-18.0); Lymphocyte (Absolute #) 0.75 (1.0-4.6); Mean Cell Volume 82.6 fl (78-100); Mean Corpuscular Hemoglobin 26.2 pg (26-32); Mean Corpuscular Hgb Concent. 31.8 g/dl (32-36); Mean Platelet Volume 9.6 fl (6-9.5); Monocyte (Absolute #) 0.39 (0.0-1.3); Monocytes % 4.7 % (0.0-12.0); Platelet Count 359 K/mm3 (150-450); Red Blood Count 4.61 M/mm3 (4.1-5.6); Red Cell Distribution Width 16.3 % (11.5-14.0); White Blood Count 8.3 K/mm3 (4.0-10.5)
[2018-03-26] MEDS ORDERED: Sodium Chloride 0.9% 1000 ML 1,000 ML ONE (17:28)
[2018-03-26] MEDS ORDERED: Sodium Chloride 0.9% 1000 ML 1,000 ML IV SCH (17:30)
[2018-03-26 17:37] LABS: ALKALINE PHOSPHATASE 84 U/L (38-126); AMYLASE 81 U/L (30-110); ANION GAP 18.8 MEQ/L (5-15); BLOOD UREA NITROGEN 12 mg/dL (9-20); CHLORIDE 103 mmol/L (98-107); Carbon Dioxide 21 mmol/L (22-30); Creatinine 1 0.82 mg/dL (0.66-1.25); Glucose 106 mg/dL (74-106); LIPASE 47 U/L (23-300); Potassium 3.9 mmol/L (3.5-5.1); SGOT/AST 24 U/L (17-59); SGPT/ALT 17 U/L (0-50); SODIUM 140 mmol/L (137-145); Total Protein 7.9 g/dL (6.3-8.2)
[2018-03-26] MEDS ORDERED: NovoLIN R IV ONE (17:59)
[2018-03-26] MEDS ORDERED: Kayexylate 15 GM/60 ML PO ONE (18:00)
[2018-03-26] MEDS ORDERED: Calcium Gluconate 10% 1000 MG IV ONE (18:00)
[2018-03-26 18:03] LABS: Appearance CLEAR (CLEAR); Bilirubin NEGATIVE (NEGATIVE); Blood NEGATIVE Ery/ul (0-5); Glucose NEGATIVE (NEGATIVE); Ketones SMALL (NEGATIVE); Leukocyte Esterase NEGATIVE (NEGATIVE); Mucus SLIGHT /HPF (NEGATIVE); Nitrite NEGATIVE (NEGATIVE); Protein,Urine Dip NEGATIVE (Negative); Specific Gravity 1.015 (1.005-1.025); Urobilinogen 2 mg/dL (0-1)
--- NOTE | 2018-03-26 18:43 | ERPHSYRPT ---
- History of Present Illness Time Seen by Provider: 03/26/18 17:30 Historian: patient Exam Limitations: clinical condition Patient Subjective Stated Complaint: Pt states "They fixed a bleeder at [facility] in [place] [facility] to fix a bleeder in my stomach a couple of weeks ago. Yesterday I went to [facility] yesterday and they just gave me medication but it did not get better." Triage Nursing Assessment: Pt alert and oriented X 3, skin pwd. PT ambulates with an upright steady gait, able to speak in clear full sentences. Pt in no apparent respiratory distress. PT abdomen is soft, tender bilat lower quadrants. Physician History: PATIENT WITH A HISTORY OF CORONARY ARTERY DISEASE GI BLEED IN 01/26/2018, [facility], PREVIOUS GASTRIC BYPASS SURGERY, HISTORY OF CHRONIC BACK, AND ABDOMINAL PAIN COMPLAINS OF ABDOMINAL PAIN SINCE LAST NIGHT. PATIENT HAS A HISTORY OF CHRONIC ABDOMNAL PAIN, HAS HAD [address] SCANS SINCE 03/2016. HE DENIES NAUSEA, EMESIS, MELENA OR DIARRHEA. Timing/Duration: yesterday Activities at Onset: none Quality: sharpness Abdominal Pain Onset Location: epigastric Pain Radiation: no radiation Severity of Pain-Max: moderate Severity of Pain-Current: moderate Modifying Factors: Improves With: nothing Associated Symptoms: denies symptoms Previous symptoms: same symptoms as today Allergies/Adverse Reactions: No Known Drug Allergies Allergy (Verified 01/25/18 08:27) Home Medications: Levothyroxine Sodium 50 Mcg [Synthroid 50 Mcg] 150 mcg PO DAILY 07/28/11 [ History] Lisinopril 20 mg [Zestril 20 MG] 40 mg PO DAILY 03/29/16 [History] PANTOPRAZOLE 40 mg Tablet [Protonix 40MG Tablet] 40 mg DAILY 12/03/17 [ History] Hx Tetanus, Diphtheria Vaccination/Date Given: Yes Hx Influenza Vaccination/Date Given: No Hx Pneumococcal Vaccination/Date Given: Yes Immunizations Up to Date: Yes - Review of Systems Constitutional: No Fever, No Chills Eyes: No Symptoms Ears, Nose, & Throat: No Symptoms Respiratory: No Symptoms, No Cough, No Dyspnea Cardiac: No Symptoms, No Chest Pain, No Edema, No Syncope Abdominal/Gastrointestinal: Abdominal Pain, No Nausea, No Vomiting, No Diarrhea Genitourinary Symptoms: No Symptoms, No Dysuria Musculoskeletal: No Symptoms, No Back Pain, No Neck Pain Skin: No Symptoms, No Rash Neurological: No Symptoms, No Dizziness, No Focal Weakness, No Sensory Changes Psychological: No Symptoms Endocrine: No Symptoms All Other Systems: Reviewed and Negative - Past Medical History Pertinent Past Medical History: Yes Neurological History: No Pertinent History ENT History: No Pertinent History Cardiac History: Coronary Artery Disease, Hypertension, Myocardial Infarction ( [place]) Respiratory History: No Pertinent History Endocrine Medical History: Hypothyroidism Musculoskeletal History: Degenerative Disk Disease GI Medical History: GI Bleed History: No Pertinent History Psycho-Social History: Depression Male Reproductive Disorders: No Pertinent History Other Medical History: CHRONIC BACK PAIN. CHRONIC ABDOMINAL PAIN. ANEMIA - Past Surgical History Past Surgical History: Yes Neuro Surgical History: No Pertinent History Cardiac: CABG, Cardiac Stent Respiratory: No Pertinent History Gastrointestinal: Appendectomy, Cholecystectomy, Exploratory Laparoscopy Genitourinary: No Pertinent History Musculoskeletal: Orthopedic Surgery Male Surgical History: No Pertinent History Other Surgical History: SPINAL SURGERY 2016. BILATERAL KNEE SCOPES, states CABG x 3 vessels more than 10yrs ago. Cardiac stents x 5. abdominal surger - Social History Smoking Status: Never smoker Exposure to second hand smoke: No Alcohol Use: None Drug Use: none Patient Lives Alone: No Significant Family History: heart disease, other - Nursing Vital Signs Nursing Vital Signs: Initial Vital Signs Temperature 98.9 F 03/26/18 17:05 Pulse Rate 74 03/26/18 17:05 Respiratory Rate 18 03/26/18 17:05 Blood Pressure 191/109 03/26/18 17:05 O2 Sat by Pulse Oximetry 99 03/26/18 17:05 Pain Scale Pain Intensity 7 - Physical Exam General Appearance: no apparent distress, alert Eye Exam: PERRL/EOMI, eyes nml inspection Ears, Nose, Throat Exam: normal ENT inspection, pharynx normal, moist mucous membranes Neck Exam: normal inspection, non-tender, supple, full range of motion Respiratory Exam: normal breath sounds, lungs clear, No respiratory distress Cardiovascular Exam: regular rate/rhythm, normal heart sounds Gastrointestinal/Abdomen Exam: soft, normal bowel sounds, tenderness ( EPIGASTRIC TENDERNESS, NO GUARDING), No mass Rectal Exam: normal exam Back Exam: normal inspection, normal range of motion, No CVA tenderness, No vertebral tenderness Extremity Exam: normal inspection, normal range of motion, pelvis stable Neurologic Exam: alert, oriented x 3, cooperative, normal mood/affect, nml cerebellar function, sensation nml, No motor deficits Skin Exam: normal color, warm, dry SpO2 Interpretation: normal SpO2: 100 - CT Exams Abdomen/Pelvis CT Interpretation: Tele-radiologist Report (BORIS-EN-Y GASTRIC BYPASS SURGERY WITH THICKENING AT THE DISTAL ESOPHAGUS, AND GASTROESOPHAGEAL JUNCTION SUGGESTING ESOPHAGITIS, DUODENAL MUCOSAL ENHANCEMENT AND MILD ADJACENT STRANDING , EVIDENCE OF DUODENITIS /PEPTIC ULCER DISEASE) Ordered Tests: Active Orders 24 hr Category Date Time Status IV Insertion STAT Care 03/26/18 17:17 Active ABDOMEN AND PELVIS W CONTRAST [CT] Stat Exams 03/26/18 17:17 Taken AMYLASE Stat Lab 03/26/18 17:15 Completed CBC W DIFF Stat Lab 03/26/18 17:15 Completed CMP Stat Lab 03/26/18 17:15 Completed LIPASE Stat Lab 03/26/18 17:15 Completed Occult Blood,Stool Other Stat Lab 03/26/18 19:17 Completed UA W/RFX UR CULTURE Stat Lab 03/26/18 17:37 Completed Medication Summary Generic Name Dose Route Start Last Admin Trade Name Freq PRN Reason Stop Dose Admin Sodium Chloride 1,000 mls @ 100 mls/hr 03/26/18 17:30 03/26/18 17:29 Sodium Chloride 0.9% 1000 Ml IV 04/25/18 17:29 100 mls/hr .Q10H VENUS Administration Discontinued Medications Generic Name Dose Route Start Last Admin Trade Name Freq PRN Reason Stop Dose Admin Hydrocodone Bitart/Acetaminophen 2 tab 03/26/18 19:53 [place] 5/325 Mg PO 03/26/18 19:54 SENT HOME W/ PATIENT ONE Al Hydrox/Mg Hydrox/Simethicone Confirm 03/26/18 19:08 Maalox Es 30 Ml Unit Dose Administered 03/26/18 19:09 Dose 30 ml .ROUTE .STK-MED ONE Calcium Gluconate 1,000 mg 03/26/18 18:00 03/26/18 18:06 Calcium Gluconate 10% 1000 Mg IV 03/26/18 18:01 Not Given STAT ONE Insulin Human Regular 5 unit 03/26/18 17:59 03/26/18 18:07 Novolin R IV 03/26/18 18:00 Not Given STAT ONE Lidocaine HCl Confirm 03/26/18 19:08 Xylocaine Hcl Viscous * Administered 03/26/18 19:09 Dose 15 ml .ROUTE .STK-MED ONE Magnesium Hydroxide 45 ml 03/26/18 18:48 03/26/18 19:13 Gi Cocktail 45 Ml (Maalox/Lidocaine) PO 03/26/18 18:49 45 ml STAT ONE Administration Pantoprazole Sodium 40 mg 03/26/18 18:48 03/26/18 19:12 Protonix 40 Mg Iv IV 03/26/18 18:49 40 mg STAT ONE Administration Pantoprazole Sodium Confirm 03/26/18 19:08 Protonix 40 Mg Iv Administered 03/26/18 19:09 Dose 40 mg IV .STK-MED ONE Sodium Polystyrene Sulfonate 30 g 03/26/18 18:00 03/26/18 18:07 Kayexylate 15 Gm/60 Ml PO 03/26/18 18:01 Not Given STAT ONE Lab/Rad Data: Laboratory Result Diagrams 03/26/18 17:15 03/26/18 17:15 Laboratory Results 03/26/18 03/26/18 03/26/18 Range/Units 19:17 17:37 17:15 WBC (4.0-10.5) K/mm3 RBC (4.1-5.6) M/mm3 Hgb (12.5-18.0) gm/dl Hct (42-50) % MCV (78-100) fl MCH (26-32) pg MCHC (32-36) g/dl RDW (11.5-14.0) % Plt Count (150-450) K/mm3 MPV (6-9.5) fl Gran % (36.0-66.0) % Eos # (Auto) (0-0.5) Absolute Lymphs (auto) (1.0-4.6) Absolute Monos (auto) (0.0-1.3) Lymphocytes % (24.0-44.0) % Monocytes % (0.0-12.0) % Eosinophils % (0.00-5.0) % Basophils % (0.0-0.4) % Absolute Granulocytes (1.4-6.9) Basophils # (0-0.4) Sodium 140 (137-145) mmol/L Potassium 3.9 (3.5-5.1) mmol/L Chloride 103 (98-107) mmol/L Carbon Dioxide 21 L (22-30) mmol/L Anion Gap 18.8 H (5-15) MEQ/L BUN 12 (9-20) mg/dL Creatinine 0.82 (0.66-1.25) mg/dL Estimated GFR > 60.0 ML/MIN Glucose 106 (74-106) mg/dL Calcium 10.0 (8.4-10.2) mg/dL Total Bilirubin 0.80 (0.2-1.3) mg/dL AST 24 (17-59) U/L ALT 17 (0-50) U/L Alkaline Phosphatase 84 (38-126) U/L Serum Total Protein 7.9 (6.3-8.2) g/dL Albumin 5.0 (3.5-5.0) g/dL Amylase 81 (30-110) U/L Lipase 47 (23-300) U/L Urine Color YELLOW (YELLOW) Urine Appearance CLEAR (CLEAR) Urine pH 7.0 (5-6) Ur Specific [place] 1.015 (1.005-1.025) Urine Protein NEGATIVE (Negative) Urine Ketones SMALL (NEGATIVE) Urine Blood NEGATIVE (0-5) Jose/ul Urine Nitrite NEGATIVE (NEGATIVE) Urine Bilirubin NEGATIVE (NEGATIVE) Urine Urobilinogen 2 (0-1) mg/dL Ur Leukocyte Esterase NEGATIVE (NEGATIVE) Urine WBC (Auto) NONE (0-5) /HPF Urine RBC (Auto) NONE (0-2) /HPF U Epithel Cells (Auto) NONE (FEW) /HPF Urine Bacteria (Auto) NONE (NEGATIVE) /HPF Urine Mucus (Auto) SLIGHT (NEGATIVE) /HPF Urine Culture Reflexed NO (NO) Urine Glucose NEGATIVE (NEGATIVE) mg/dL Stool Occult Blood NEGATIVE (Negative) 03/26/18 Range/Units 17:15 WBC 8.3 (4.0-10.5) K/mm3 RBC 4.61 (4.1-5.6) M/mm3 Hgb 12.1 L (12.5-18.0) gm/dl Hct 38.1 L (42-50) % MCV 82.6 (78-100) fl MCH 26.2 (26-32) pg MCHC 31.8 L (32-36) g/dl RDW 16.3 H (11.5-14.0) % Plt Count 359 (150-450) K/mm3 MPV 9.6 H (6-9.5) fl Gran % 85.5 H (36.0-66.0) % Eos # (Auto) 0.03 (0-0.5) Absolute Lymphs (auto) 0.75 L (1.0-4.6) Absolute Monos (auto) 0.39 (0.0-1.3) Lymphocytes % 9.0 L (24.0-44.0) % Monocytes % 4.7 (0.0-12.0) % Eosinophils % 0.4 (0.00-5.0) % Basophils % 0.4 (0.0-0.4) % Absolute Granulocytes 7.14 H (1.4-6.9) Basophils # 0.03 (0-0.4) Sodium (137-145) mmol/L Potassium (3.5-5.1) mmol/L Chloride (98-107) mmol/L Carbon Dioxide (22-30) mmol/L Anion Gap (5-15) MEQ/L BUN (9-20) mg/dL Creatinine (0.66-1.25) mg/dL Estimated GFR ML/MIN Glucose (74-106) mg/dL Calcium (8.4-10.2) mg/dL Total Bilirubin (0.2-1.3) mg/dL AST (17-59) U/L ALT (0-50) U/L Alkaline Phosphatase (38-126) U/L Serum Total Protein (6.3-8.2) g/dL Albumin (3.5-5.0) g/dL Amylase (30-110) U/L Lipase (23-300) U/L Urine Color (YELLOW) Urine Appearance (CLEAR) Urine pH (5-6) Ur Specific [place] (1.005-1.025) Urine Protein (Negative) Urine Ketones (NEGATIVE) Urine Blood (0-5) Jose/ul Urine Nitrite (NEGATIVE) Urine Bilirubin (NEGATIVE) Urine Urobilinogen (0-1) mg/dL Ur Leukocyte Esterase (NEGATIVE) Urine WBC (Auto) (0-5) /HPF Urine RBC (Auto) (0-2) /HPF U Epithel Cells (Auto) (FEW) /HPF Urine Bacteria (Auto) (NEGATIVE) /HPF Urine Mucus (Auto) (NEGATIVE) /HPF Urine Culture Reflexed (NO) Urine Glucose (NEGATIVE) mg/dL Stool Occult Blood (Negative) - Progress Progress: pain not gone completely Counseled pt/family regarding: lab results, diagnosis, need for follow-up, rad results - Departure Time of Disposition: 20:00 Departure Disposition: Home Clinical Impression: PEPTIC ULCER DISEASE Condition: Stable Critical Care Time: No Referrals: GANESH MAYER [Primary Care Provider] - Additional Instructions: BEGIN CARAFATE 1GM BEFORE MEALS AND AT BEDTIME, TAKE CARAFATE 2 HOURS BEFORE OR AFTER OTHER MEDICATIONS. FOLLOWUP WITH YOUR DIRECTOR OF GOLF AT [facility]. NORCO 5/325 EVERY 6 HOURS NEEDED. SENT 2 TABLETS HOME WITH PATIENT. Prescriptions: Sucralfate 1 gm [Carafate 1 GM] 1 g PO ACHS #120 tablet
[2018-03-26] MEDS ORDERED: GI COCKTAIL 45 ML (Maalox/Lidocaine) PO ONE (18:48)
[2018-03-26] MEDS ORDERED: PROTONIX 40 MG IV IV ONE ×2 (18:48→19:08)
[2018-03-26] MEDS ORDERED: XYLOCAINE HCl Viscous ONE (19:08)
[2018-03-26] MEDS ORDERED: MAALOX ES 30 ML UNIT DOSE ONE (19:08)
[2018-03-26] MEDS ORDERED: NORCO 5/325 MG PO ONE (19:53)
[2018-03-26] MEDS ORDERED: NORCO 5/325 MG ONE (19:58)
[2018-03-26 19:59] VITALS: PULSE 79
[2018-03-26 20:13] VITALS: BP 155/98; O2SAT 99
--- NOTE | 2018-03-27 08:42 | XRAY ---
Indication: Abdomen pain. Multiple contiguous axial images obtained through the abdomen and pelvis using 80 cc Isovue 370 contrast only. Comparison: October 27, 2017. Lung bases again demonstrates left base dependent atelectasis. No infiltrate or effusion. Heart is not enlarged. Stable small hiatal hernia. Again previous gastric bypass surgery. Noncontrasted stomach and bowel loops appear nonobstructed. Antral portion of the stomach again demonstrates mild wall thickening with stranding favoring gastritis. No free fluid/air. Stable tiny left renal cyst, enlarged prostate gland, and cholecystectomy clips. Remaining liver, pancreas, spleen, adrenal glands, kidneys, ureters, and bladder appear unremarkable. Stable mild aortoiliac calcifications. No AAA or pathologic retroperitoneal lymphadenopathy. Osseous structures intact again with L4-S1 fusion surgery and grade 1 L4 anterolisthesis. No ventral or inguinal hernias. Impression: 1. Again antral stomach wall thickening and stranding favoring gastritis. No complications. 2. Stable hiatal hernia, left renal cyst, enlarged prostate gland. Comment: Preliminary interpretation was made by [facility]. No critical discrepancy. CT DI 21.14
== END 2018-03-26 20:12 | disposition home or self-care (01) ==
LOC: ED 16:56
DX: K27.9 Peptic ulcer, site unspecified, unspecified as acute or chronic, without hemorrhage or perforation (principal); I25.10 Atherosclerotic heart disease of native coronary artery without angina pectoris; I10 Essential (primary) hypertension; I25.2 Old myocardial infarction; F32.9 Major depressive disorder, single episode, unspecified; R10.9 Unspecified abdominal pain; G89.29 Other chronic pain; Z98.84 Bariatric surgery status
CPT/HCPCS: 36000; 36415; 74177; 80053; 81001; 82150; 82272; 83690; 85025; 96360; 96361; 96374; 99284; A9270-GY